=== PATIENT | female | born 1980 | race Caucasian/White ===

== ENCOUNTER 2023-02-08 12:32 | Outpatient (REF) | payer MEDICAID, SELFPAY ==
[2023-02-08 14:48] LABS: Free T4 (Free Thyroxine) 0.93 ng/dL (0.71-1.85); Thyroid Stimulating Hormone 0.06 uIU/mL (0.32-4.0)
[2023-02-09 21:14] LABS: Triiodothyronine T3 Free 3.3 pg/mL (2.3-4.2)
== END 2023-02-08 12:33 | disposition home or self-care (01) ==
LOC: HO.LAB 12:32
PROVIDERS: PCP Internal Medicine; Visit Provider Internal Medicine Endocrinology, Diabetes & Metabolism
DX: E05.20 Thyrotoxicosis with toxic multinodular goiter without thyrotoxic crisis or storm (principal); E03.9 Hypothyroidism, unspecified; E04.2 Nontoxic multinodular goiter; R13.10 Dysphagia, unspecified; Z79.899 Other long term (current) drug therapy
CPT/HCPCS: 36415; 84439; 84443; 84481; 99212

== ENCOUNTER 2023-03-04 13:49 | Outpatient (REF) | payer MEDICAID, SELFPAY ==
--- NOTE | ~2023-03-04 | US_ITS ---
EXAMINATION: US THYROID CLINICAL INFORMATION: Thyrotoxicosis with toxic multinodular goiter without thyrotoxic crisis or storm. COMPARISON: None available. TECHNIQUE: Linear transducer grayscale and color Doppler examination with attention to the region of the thyroid. FINDINGS: SIZE: Measurements of the thyroid lobes and nodules are given in sagittal, anteroposterior and transverse dimensions respectively. Right Thyroid Lobe: 5.8 x 1.8 x 2.4 cm, volume 13.1 mL. Parenchyma: The gland echotexture is heterogeneous. Thyroid vascularity is increased. Left Thyroid Lobe: 5.8 x 2.1 x 2.7 cm, volume 17.2 mL. Parenchyma: The gland echotexture is heterogeneous. Thyroid vascularity is increased. Isthmus: 0.7 cm in maximum AP dimension. Estimated total number of nodules greater than or equal to 1 cm: 0. 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 Location: Right inferior. Size: 0.7 x 0.5 x 0.5 cm, volume 0.1 mL. Nodule characteristics: Composition: Mixed cystic and solid (1). Echogenicity: Hypoechoic (2). Shape: Not taller than wide (0). Margins: Smooth (0). Echogenic Foci: Comet-tail artifacts (0). ACR TI-RADS total points: 3 ACR TI-RADS category: 3 2. Location: Left mid. Size: 0.9 x 0.5 x 0.6 cm, volume 0.2 mL. Nodule characteristics: Composition: Solid/almost completely solid (2). Echogenicity: Isoechoic (1). Shape: Not taller than wide (0). Margins: Ill-defined (0). Echogenic Foci: None (0). ACR TI-RADS total points: 3 ACR TI-RADS category: 3 3. Location: Left mid. Size: 1.2 x 0.7 x 1.0 cm, volume 0.4 mL. Nodule characteristics: Composition: Mixed cystic and solid (1). Echogenicity: Isoechoic (1). Shape: Not taller than wide (0). Margins: Ill-defined (0). Echogenic Foci: None (0). ACR TI-RADS total points: 2 ACR TI-RADS category: 2 NODES: No lymphadenopathy is seen in the tissue surrounding the thyroid gland. US/US thyroid IMPRESSION: Subcentimeter TR 3 thyroid nodules and a 1.2 cm TR 2 thyroid nodule which do not meet criteria for follow-up. Heterogeneous hypervascular thyroid which can be seen in the setting of thyroiditis. ACR TI-RADS RECOMMENDATION REFERENCE: Ultrasound-guided fine-needle aspiration, followup ultrasound, no further follow up. * TR1 (0 point) and TR2 (2 points): No FNA or follow up. * TR3 (3 points): FNA if more than or equal to 2.5 cm in maximum dimension, followup ultrasound in 1, 3 and 5 years if 1.5 to 2.4 cm in maximum dimension. * TR4 (4-6 points): FNA if more than or equal to 1.5 cm in maximum dimension, followup ultrasound in 1, 2, 3 and 5 years if 1 to 1.4 cm in maximum dimension. * TR5 (more than or equal to 7 points): FNA if more than or equal to 1 cm in maximum dimension, followup ultrasound every year for 5 years if 0.5 to 0.9 cm in maximum dimension. * TR3, TR4 or TR5 nodules that are below the size threshold for followup receive no follow up.
== END 2023-03-04 13:50 | disposition home or self-care (01) ==
LOC: HO.US 13:49
PROVIDERS: PCP Internal Medicine; Visit Provider Internal Medicine Endocrinology, Diabetes & Metabolism
DX: E05.20 Thyrotoxicosis with toxic multinodular goiter without thyrotoxic crisis or storm (principal)
CPT/HCPCS: 76536

== ENCOUNTER 2023-06-07 12:33 | Outpatient (REF) | payer MEDICAID, SELFPAY ==
[2023-06-07 15:10] LABS: Free T4 (Free Thyroxine) 0.96 ng/dL (0.71-1.85); Thyroid Stimulating Hormone 0.08 uIU/mL (0.32-4.0)
[2023-06-09 07:53] LABS: Triiodothyronine T3 Free 3.1 pg/mL (2.3-4.2)
== END 2023-06-07 12:34 | disposition home or self-care (01) ==
LOC: HO.LAB 12:33
PROVIDERS: Visit Provider Internal Medicine Endocrinology, Diabetes & Metabolism
DX: E05.20 Thyrotoxicosis with toxic multinodular goiter without thyrotoxic crisis or storm (principal); Z79.899 Other long term (current) drug therapy
CPT/HCPCS: 36415; 84439; 84443; 84481; 99212

== ENCOUNTER 2023-06-07 12:33 | Outpatient (AMB) | payer MEDICAID, SELFPAY ==
--- NOTE | 2023-06-07 12:34 | MHC.OFFVIS ---
Intake Vital Signs 06/07/23 12:37 Height 5 ft 2 in Weight 197 lb BMI 36.0 BP 92/66 Blood Pressure Location Lt brachial Position Sitting Pulse 76 Intake Visit Reasons: f/u MNG Intake Note: Patient present for MNG follow up visit. 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 Maya at [facility]. According to her notes nodules were subcentimeter. Patient is currently off methimazole 2.5 mg q.d. Feels well c/o dysphagia and hoarseness of voice. Denies sensation of swelling in the neck or difficulty breathing while lying flat. Denies any tenderness in the neck. Denies any palpitations, tremors, + weight loss,-frequent bowel movements. Denies any ocular complaints,+ blurred or _double vision. Denies hair loss, dry skin, heat or cold intolerance, weight gain, confusion. Denies any history of head or neck irradiation. Denies any family history of thyroid cancer. Not Had biopsy of nodules in the past. Thyroid US: Labs: [facility] Medical History (Updated 02/08/23 @ 12:51 by Ronal Scott MD) Toxic multinodul goiter Surgical History Hx of appendectomy Hx of rhinoplasty Family History Mother Heart problem High cholesterol Arthritis History of hypertension Father Arthritis High cholesterol History of hypertension Social History Household Members: Family Household Members Other:: parents, brother Alcohol intake: current Alcohol intake frequency: does not drink Tobacco use type: Cigarette e-Cigarette/Vaping Use: Currently Using Physical Exam Vital Signs: Last Vital Signs Pulse 76 06/07/23 12:37 BP 92/66 06/07/23 12:37 BMI result Body Mass Index 36.0 HEENT reveals absence of lid lag , stare or proptosis or eyebrow loss. Thyroid gland is large in size and measure 45 gms . No nodules or tenderness palpated. There is no cervical adenopathy palpated. Lungs CTA. Heart S1, S2 Reg R/R -M/R/G. Abdominal exam benign. Skin exam reveals absence of dryness or thyroid dermopathy or vitiligo. Nail exam reveals absence of thyroid acropachy or oncholysis. Neurologic exam reveals 2+ reflexes . Muscle Strength is 5/5 proximally. There are no tremors in upper extremities. 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 She appears to be clinically euthyroid. The plan is to send the patient for thyroidectomy due to obstructive symptoms and previous mild degree of TSH suppression. Will also recheck TSH, free T4, free T3. 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
[2023-06-07 12:37] VITALS: BP 92/66; PULSE 76; BMI 36.0
== END 2023-06-07 12:59 | disposition home or self-care (01) ==
PROVIDERS: PCP Internal Medicine; Referring Provider Internal Medicine; Visit Provider Internal Medicine Endocrinology, Diabetes & Metabolism
DX: E05.20 Thyrotoxicosis with toxic multinodular goiter without thyrotoxic crisis or storm (principal)
CPT/HCPCS: 99213

== ENCOUNTER 2024-10-20 13:13 | Outpatient (AMB) | payer MEDICAID, SELFPAY ==
[2024-10-20 13:14] VITALS: BP 100/68; PULSE 52; BMI 23.7
--- NOTE | 2024-10-20 13:14 | MHC.OFFVIS ---
Vital Signs 10/20/24 13:14 Height 5 ft 2 in Weight 129 lb 10.109 oz BMI 23.7 BP 100/68 Blood Pressure Location Rt brachial Position Sitting Pulse 52 Pulse Source Pulse Oximeter Intake Visit Reasons: f/u MNG/CONF Intake Note: New patient present today for MGN office visit. 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 Vince Rosario at [facility] for toxic MNG . Also noted to be aromatase inhibitor therapy for breast cancer. HPI She has a history of hyperthyroidism since 2008 likely due to diffuse toxic goiter, apparently diagnosed when she lived in [place], no details available. Per patient she used to be on antithyroid medication for years (? PTU), then [place] and was started on methimazole but developed some side effects and stopped in September 2022. Labs from February 2023 showed suppressed TSH 0.06 with normal free T4 of 0.93. Subsequently labs in June 2023 again showed suppressed TSH of 0.08, free T4 0.96, free T3 3.1 (off methimazole). Thyroid ultrasound 03/04/2023 showed diffusely enlarged hypervascular thyroid gland containing multiple around 1 cm or less nodules including dominant 1.2 cm TR 2 left midpole nodule, not meeting criteria for biopsy. She was having some degree of compressive symptoms with dysphagia to solids, neck pressure, occasional choking. She was subsequently referred to Endocrine surgery and saw Dr. Vince Rosario at [facility] on 09/25/2023 for evaluation of toxic multinodular goiter for total thyroidectomy. She was also in in the interim diagnosed with breast cancer status post left breast lumpectomy August 2023 status post chemotherapy completed November 2023 followed by radiation therapy finished January 2024. Sees Dr. Macrina Best at [facility] and Dr Addison Bradford for her oncology care. Hence total thyroidectomy was subsequently delayed. Status post total thyroidectomy 09/02/[address] Vince Rosario at [facility] in [facility], along with right inferior parathyroidectomy with reimplantation of the parathyroid in the left SCM. 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 Currenlty taking levothyroxine 88 mcg daily , good adherence , takes between 9 AM to 10 AM and waits an hour between eating or drinking coffee. Fatigue improved since surgery. Palpitations improved. Bowel movements regular. Lost 70 lbs after gastric sleeve surgery in [place] in March 2023. Continues to lose weight. Hasnt had period for one year since chemo, she is on depot progesterone every 3 months Patient denies any difficulty swallowing, pain on swallowing or voice changes or difficulty breathing. Denies having ever used lithium, amiodarone or biotin supplements. Patient denies any family history of thyroid cancer or thyroid disease. Bone health on aromatase inhibitor For history of breast cancer, starting letrozole February 2024 with plan for 5 years Denies any fracture history, denies history of bone density evaluation Vitamin D 2000 units daily, taking calcium 2 pills daily not sure about the dose Milk: daily one bottle every day (a protein shake), a cup of milk wiht oats daily She vapes , has prior history of tobacco use Denies any alcohol use Has had cortisone shots in her hip a few years ago, 2 injections, denies any long-term glucocorticoid therapy Has had chemotherapy for left breast cancer in 01/2024 No history of antiseizure medications No PPI use. Does have history of hyperthyroidism due to toxic multinodular goiter as described above status post total thyroidectomy August 2024 now with postsurgical hypothyroid Physical exam General: sitting comfortably in no acute distress HEENT: normocephalic/atraumatic,moist oral mucosa Neck: supple, symmetrical, well healing surgical scar , no dorsocervical or supraclavicular fat pads Cardiac: normal heart sounds Pulm: normal breath sounds B/L, no added breath sounds Abd: not distended, no tenderness Extremities: no edema, no signs of myxedema Laboratory Tests 02/08/23 06/07/23 13:33 13:15 TSH 0.06 L 0.08 L Free T4 0.93 0.96 Free T3 3.3 3.1 US THYROID 03/04/23 CLINICAL INFORMATION: Thyrotoxicosis with toxic multinodular goiter without thyrotoxic crisis or storm. COMPARISON: None available. TECHNIQUE: Linear transducer grayscale and color Doppler examination with attention to the region of the thyroid. FINDINGS: SIZE: Measurements of the thyroid lobes and nodules are given in sagittal, anteroposterior and transverse dimensions respectively. Right Thyroid Lobe: 5.8 x 1.8 x 2.4 cm, volume 13.1 mL. Parenchyma: The gland echotexture is heterogeneous. Thyroid vascularity is increased. Left Thyroid Lobe: 5.8 x 2.1 x 2.7 cm, volume 17.2 mL. Parenchyma: The gland echotexture is heterogeneous. Thyroid vascularity is increased. Isthmus: 0.7 cm in maximum AP dimension. Estimated total number of nodules greater than or equal to 1 cm: 0. 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 Location: Right inferior. Size: 0.7 x 0.5 x 0.5 cm, volume 0.1 mL. Nodule characteristics: Composition: Mixed cystic and solid (1). Echogenicity: Hypoechoic (2). Shape: Not taller than wide (0). Margins: Smooth (0). Echogenic Foci: Comet-tail artifacts (0). ACR TI-RADS total points: 3 ACR TI-RADS category: 3 2. Location: Left mid. Size: 0.9 x 0.5 x 0.6 cm, volume 0.2 mL. Nodule characteristics: Composition: Solid/almost completely solid (2). Echogenicity: Isoechoic (1). Shape: Not taller than wide (0). Margins: Ill-defined (0). Echogenic Foci: None (0). ACR TI-RADS total points: 3 ACR TI-RADS category: 3 3. Location: Left mid. Size: 1.2 x 0.7 x 1.0 cm, volume 0.4 mL. Nodule characteristics: Composition: Mixed cystic and solid (1). Echogenicity: Isoechoic (1). Shape: Not taller than wide (0). Margins: Ill-defined (0). Echogenic Foci: None (0). ACR TI-RADS total points: 2 ACR TI-RADS category: 2 NODES: No lymphadenopathy is seen in the tissue surrounding the thyroid gland. US/US thyroid IMPRESSION: Subcentimeter TR 3 thyroid nodules and a 1.2 cm TR 2 thyroid nodule which do not meet criteria for follow-up. Heterogeneous hypervascular thyroid which can be seen in the setting of thyroiditis. [facility] Medical History (Updated 10/20/24 @ 13:56 by Teresa Cristina MD) Hypothyroidism Vitamin D deficiency Aromatase inhibitor use Toxic multinodul goiter Surgical History (Updated 10/20/24 @ 13:20 by JENNIFER Reno) History of thyroid surgery Hx of rhinoplasty Hx of appendectomy Family History Mother Heart problem High cholesterol Arthritis History of hypertension Father Arthritis High cholesterol History of hypertension Social History Household Members: Family Household Members Other:: parents, brother Alcohol intake: current Alcohol intake frequency: does not drink Tobacco use type: Cigarette e-Cigarette/Vaping Use: Currently Using Assessment & Plan Assessment & Plan (1) Toxic multinodul goiter: Code(s): E05.20 - Thyrotoxicosis with toxic multinodular goiter without thyrotoxic crisis or storm Category: Medical Plan: 44-year-old female with past medical history significant for toxic multinodular goiter status post total thyroidectomy 09/02/[address] Vince Rosario at [facility], now coming in for postsurgical hypothyroidism. Currently on levothyroxine 88 mcg daily. No recent TFTs done. We will order TSH and free T4. Plan: -ordered TSH, free T4 -continue levothyroxine 88 mcg daily (2) Hypothyroidism: Code(s): E03.9 - Hypothyroidism, unspecified Category: Medical Qualifiers: Hypothyroidism type: postoperative Qualified Code(s): E89.0 - Postprocedural hypothyroidism Plan: See above (3) Aromatase inhibitor use: Code(s): Z79.811 - half-way (current) use of aromatase inhibitors Category: Medical Plan: 44-year-old female with a history significant for left breast cancer status post lumpectomy August 2023 status post chemotherapy completed November 2023 followed by radiation therapy finished January 2024. Sees Dr. Macrina Best at [facility] and Dr Addison Bradford for her oncology care. Was started on letrozole 2.5 mg daily in February 2024, with plan for 5 years of therapy. No history of fractures, has not had a bone density scan. I discussed with the patient that Aromatase inhibitors are associated with bone loss and fracture and women who will be initiating aromatase inhibitors require fracture risk assessment. High-risk factors are history of cigarette smoking. She wakes now though and has quit cigarette smoking. Otherwise no other risk factors. We will obtain a bone density scan. We will also assess bone resorption markers as well as vitamin-D levels. She is taking adequate amounts of vitamin-D 2000 units daily, also on a good amount of calcium intake daily. Plan: -ordered bone density scan -ordered calcium, albumin, PTH, BMP, liver panel, protein, CBC, CTX and bone alkaline phosphatase levels -continue vitamin-D 2000 units daily -maintain 1997-5342 mg of calcium intake through diet/supplement daily -weight-bearing exercise (4) Vitamin D deficiency: Code(s): E55.9 - Vitamin D deficiency, unspecified Category: Medical Plan: See above Plan I spent 30 minutes in reviewing the record, seeing the patient and documenting in the medical record. 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 thyrotoxic crisis or storm, E55.9 - Vitamin D deficiency, unspecified, Z79.811 - ocean transportation intermediary (current) use of aromatase inhibitors XR DEXA axial skeleton Today Z79.811 - half-way (current) use of aromatase inhibitors Liver Panel Today Z79.811 - ocean transportation intermediary (current) use of aromatase inhibitors Total Protein Today Z79.811 - ocean transportation intermediary (current) use of aromatase inhibitors Thyroid Stimulating Hormone Today E05.20 - Thyrotoxicosis with toxic multinodular goiter without thyrotoxic crisis or storm, E55.9 - Vitamin D deficiency, unspecified, Z79.811 - ocean transportation intermediary (current) use of aromatase inhibitors Free T4 (Free Thyroxine) Today E05.20 - Thyrotoxicosis with toxic multinodular goiter without thyrotoxic crisis or storm, E55.9 - Vitamin D deficiency, unspecified, Z79.811 - ocean transportation intermediary (current) use of aromatase inhibitors Calcium Today E05.20 - Thyrotoxicosis with toxic multinodular goiter without thyrotoxic crisis or storm, E55.9 - Vitamin D deficiency, unspecified, Z79.811 - ocean transportation intermediary (current) use of aromatase inhibitors Alkaline Phosphatase Bone Today E05.20 - Thyrotoxicosis with toxic multinodular goiter without thyrotoxic crisis or storm, E55.9 - Vitamin D deficiency, unspecified, Z79.811 - ocean transportation intermediary (current) use of aromatase inhibitors Phosphorus Today E05.20 - Thyrotoxicosis with toxic multinodular goiter without thyrotoxic crisis or storm, E55.9 - Vitamin D deficiency, unspecified, Z79.811 - ocean transportation intermediary (current) use of aromatase inhibitors Vitamin D 25-OH Total Today E05.20 - Thyrotoxicosis with toxic multinodular goiter without thyrotoxic crisis or storm, E55.9 - Vitamin D deficiency, unspecified, Z79.811 - ocean transportation intermediary (current) use of aromatase inhibitors Magnesium Today E05.20 - Thyrotoxicosis with toxic multinodular goiter without thyrotoxic crisis or storm, E55.9 - Vitamin D deficiency, unspecified, Z79.811 - ocean transportation intermediary (current) use of aromatase inhibitors Complete Blood Count no Diff Today Z79.811 - ocean transportation intermediary (current) use of aromatase inhibitors Patient Instructions: 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
== END 2024-10-20 13:52 | disposition home or self-care (01) ==
LOC: HO.ENCR 13:13
PROVIDERS: PCP Internal Medicine; Visit Provider Student in an Organized Health Care Education/Training Program
DX: E05.20 Thyrotoxicosis with toxic multinodular goiter without thyrotoxic crisis or storm (principal); E89.0 Postprocedural hypothyroidism; Z79.811 Long term (current) use of aromatase inhibitors; E55.9 Vitamin D deficiency, unspecified
CPT/HCPCS: 99214

== ENCOUNTER → 2024-10-20 13:13 | Outpatient (BNVA) | payer MEDICAID, SELFPAY | PROVIDERS: PCP Internal Medicine; Visit Provider Student in an Organized Health Care Education/Training Program | DX: E05.20 Thyrotoxicosis with toxic multinodular goiter without thyrotoxic crisis or storm (principal); E89.0 Postprocedural hypothyroidism; E55.9 Vitamin D deficiency, unspecified; C50.912 Malignant neoplasm of unspecified site of left female breast; Z79.811 Long term (current) use of aromatase inhibitors | CPT/HCPCS: 99212 ==

== ENCOUNTER 2024-10-21 10:51 | Outpatient (REF) | payer MEDICAID, SELFPAY ==
[2024-10-21 12:08] LABS: Hematocrit 37.9 % (37.0-47.0); Hemoglobin 12.3 g/dl (12.0-16.0); Mean Corpuscular HGB Conc 32.5 g/dl (31.0-35.0); Mean Corpuscular Hemoglobin 31.1 pg (27.0-33.0); Mean Corpuscular Volume 95.7 fL (80.0-98.0); Mean Platelet Volume 9.9 fL (9.4-12.3); Platelet Count 237 X10*3/uL (160-400); Red Blood Count 3.96 X10*6/uL (4.20-5.50); Red Cell Distribution Width 12.5 % (11.0-16.0)
[2024-10-21 12:54] LABS: Alanine Aminotransferase 21 U/L (0-31); Albumin Level 4.1 g/dL (3.5-5.0); Alkaline Phosphatase 67 U/L (39-117); Anion Gap 8 (12-20); Aspartate Amino Transferase 22 U/L (5-31); Bilirubin Direct 0.2 mg/dL (0.0-0.5); Bilirubin Total 0.6 mg/dL (0.0-1.0); Blood Urea Nitrogen 16 mg/dL (9-16); Calcium 9.1 mg/dL (8.4-10.2); Carbon Dioxide 32 mmol/L (22-29); Chloride 106 mmol/L (96-108); Estimated Glomerular Filt Rate > 60; Glucose Random 89 mg/dL (60-115); Magnesium 2.2 mg/dL (1.6-2.6); Phosphorus 3.1 mg/dL (2.7-4.5); Potassium 3.8 mmol/L (3.3-5.1); Sodium 142 mmol/L (135-145)
[2024-10-21 13:11] LABS: Thyroid Stimulating Hormone 0.08 uIU/mL (0.32-4.0); Vitamin D 25-OH Total 50.8 ng/mL (>30)
== END 2024-10-21 10:52 | disposition home or self-care (01) ==
LOC: HO.LAB 10:51
PROVIDERS: Student in an Organized Health Care Education/Training Program; PCP Internal Medicine; Visit Provider Student in an Organized Health Care Education/Training Program
DX: E05.20 Thyrotoxicosis with toxic multinodular goiter without thyrotoxic crisis or storm (principal); Z79.811 Long term (current) use of aromatase inhibitors; E55.9 Vitamin D deficiency, unspecified
CPT/HCPCS: 36415; 80048; 80076; 82306; 83735; 84100; 84439; 84443; 85027

== ENCOUNTER 2024-10-30 08:28 | Outpatient (REF) | payer MEDICAID, SELFPAY ==
[2024-10-30 09:22] LABS: Albumin Level 4.2 g/dL (3.5-5.0); Calcium 9.6 mg/dL (8.4-10.2)
[2024-11-02 20:12] LABS: Collagen Type I C-Telopeptide 1019 pg/mL (50-465)
[2024-11-03 12:38] LABS: Alkaline Phosphatase Bone 12.9 mcg/L (5.0-18.8)
== END 2024-10-30 08:29 | disposition home or self-care (01) ==
LOC: HO.LAB 08:28
PROVIDERS: PCP Internal Medicine; Visit Provider Student in an Organized Health Care Education/Training Program
DX: E05.20 Thyrotoxicosis with toxic multinodular goiter without thyrotoxic crisis or storm (principal); E55.9 Vitamin D deficiency, unspecified; Z79.811 Long term (current) use of aromatase inhibitors
CPT/HCPCS: 36415; 82040; 82310; 82523; 84075; 84155

== ENCOUNTER 2024-11-10 14:14 | Outpatient (REF) | payer MEDICAID, SELFPAY ==
--- NOTE | ~2024-11-10 | MM_ITS ---
EXAMINATION: Dual-Energy X-ray Absorptiometry - Bone Density Study HISTORY: Estrogen deficiency TECHNIQUE: Audemat Dual energy absorptiometry (DEXA) of the lumbar spine, total left hip, and femoral neck was performed. COMPARISON: There are no prior studies for comparison. FINDINGS: The bone mineral density of the lumbar spine is 0.986 with a T-score of -1.6, and a Z-score of -1.4. The bone mineral density of the left total hip is 0.921 with a T-score of -0.7, and a Z-score of 0.2. The bone mineral density of the left femoral neck is 0.880 with a T-score of -1.1, and a Z-score of 0.4. FRACTURE RISK: The FRAX index suggests a risk of major osteoporotic fracture of 2.8%, and of hip fracture 0.4%. MM/XR DEXA axial skeleton IMPRESSION: Based on bone mineral density, and according to World Health Organization (WHO) criteria, the diagnosis is consistent with osteopenia. All bone density values are in grams per centimeter squared. At this facility, the least significant change in BMD with 95% confidence is 0.022 at the lumbar spine, 0.027 at the hip, and 0.023 at the distal 1/3 radius. Electronically signed by: Ronal Bryant MD 11/11/2024 09:52 AM [facility] [place]
== END 2024-11-10 14:15 | disposition home or self-care (01) ==
LOC: HO.MAMMO 14:14
PROVIDERS: PCP Internal Medicine; Visit Provider Student in an Organized Health Care Education/Training Program
DX: Z79.811 Long term (current) use of aromatase inhibitors (principal)
CPT/HCPCS: 77080

== ENCOUNTER → 2024-11-10 14:30 | Outpatient (BNV) | payer MEDICAID, SELFPAY | PROVIDERS: PCP Internal Medicine; Visit Provider Radiology Diagnostic Radiology | DX: E28.39 Other primary ovarian failure (principal); Z79.811 Long term (current) use of aromatase inhibitors | CPT/HCPCS: 77086 ==

== ENCOUNTER 2024-12-01 12:50 | Outpatient (AMB) | payer MEDICAID, SELFPAY ==
--- NOTE | 2024-12-01 12:53 | MHC.OFFVIS ---
Vital Signs 12/01/24 12:55 Height 5 ft 2 in Weight 130 lb 4.691 oz BMI 23.8 BP 117/82 Blood Pressure Location Rt brachial Position Sitting Pulse 83 Pulse Source Monitor Intake Visit Reasons: f/u MNG Intake Note: Patient presents today for a follow-up on Multinodular Goiter: [employer] Required: No Accompanied by: Self / Same As Patient Allergies No Known Allergies Allergy (Verified 12/01/24 12:54) HPI Comments Details: 44 YO F coming in today for follow up of postsurgical hypothyroidism after total thyroidectomy on 09/02/[address] Vince Rosario at [facility] for toxic MNG . And osteopenia with aromatase inhibitor therapy for breast cancer. History of toxic multinodular goiter Postsurgical hypothyroidism She has a history of hyperthyroidism since 2008 likely due to diffuse toxic goiter, apparently diagnosed when she lived in [place], no details available. Per patient she used to be on antithyroid medication for years (? PTU), [place] and was started on methimazole but developed some side effects and stopped in September 2022. Labs from February 2023 showed suppressed TSH 0.06 with normal free T4 of 0.93. Subsequently labs in June 2023 again showed suppressed TSH of 0.08, free T4 0.96, free T3 3.1 (off methimazole). Thyroid ultrasound 03/04/2023 showed diffusely enlarged hypervascular thyroid gland containing multiple around 1 cm or less nodules including dominant 1.2 cm TR 2 left midpole nodule, not meeting criteria for biopsy. She was having some degree of compressive symptoms with dysphagia to solids, neck pressure, occasional choking. She was subsequently referred to Endocrine surgery and saw Dr. Vince Rosario at [facility] on 09/25/2023 for evaluation of toxic multinodular goiter for total thyroidectomy. She was also in in the interim diagnosed with breast cancer status post left breast lumpectomy August 2023 status post chemotherapy completed November 2023 followed by radiation therapy finished January 2024. Sees Dr. Macrina Best at [facility] and Dr Addison Bradford for her oncology care. Hence total thyroidectomy was subsequently delayed. Status post total thyroidectomy 09/02/[address] Vince Rosario at [facility] in [facility], along with right inferior parathyroidectomy with reimplantation of the parathyroid in the left SCM. 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 Chapisenlty taking levothyroxine 88 mcg daily , good adherence , takes between 9 AM to 10 AM and waits an hour between eating or drinking coffee. Fatigue improved since surgery. Palpitations improved. Bowel movements regular. Lost 70 lbs after gastric sleeve surgery in [place] in March 2023. Continues to lose weight. Hasnt had period for one year since chemo, she is on depot progesterone every 3 months Patient denies any difficulty swallowing, pain on swallowing or voice changes or difficulty breathing. Denies having ever used lithium, amiodarone or biotin supplements. Patient denies any family history of thyroid cancer or thyroid disease. Interval history Labs from 10/21/2024 showed TSH still low at 0.08, free T4 1.30, we had asked her to repeat another set of labs in 6 weeks to see if her TSH is lagging behind and improves without any changes to levothyroxine. However no set of repeat labs done. Reports fatigue , tirendess , plapitations , and gained weight. Osteopenia Bone health on aromatase inhibitor For history of breast cancer, starting letrozole February 2024 with plan for 5 years Denies any fracture history, denies history of bone density evaluation Vitamin D 2000 units daily, taking calcium 2 pills daily not sure about the dose Milk: daily one bottle every day (a protein shake), a cup of milk wiht oats daily She vapes , has prior history of tobacco use Denies any alcohol use Has had cortisone shots in her hip a few years ago, 2 injections, denies any long-term glucocorticoid therapy Has had chemotherapy for left breast cancer in 01/2024 No history of antiseizure medications No PPI use. Does have history of hyperthyroidism due to toxic multinodular goiter as described above status post total thyroidectomy August 2024 now with postsurgical hypothyroid Mother has history of hip fracture On progesterone shot every 3 months Interval history DEXA scan 11/10/2024 showed T-score of-1.6 and Z-score of -1.4 of the lumbar spine, T-score of-0.7 at the left total hip and T-score of-1.1 at the left femoral neck. Lumbar spine and femoral neck consistent with osteopenia. While patient is young so we have to go by Z scores, she is meeting criteria for treatment based on the fact that her T-score is less than -1.5, she has a history of smoking cigarettes, and parent has a history of fragility fracture. 10/30/2024 CTX elevated at 1019. Normal calcium, vitamin-D of 50.8, normal kidney function, Physical exam General: sitting comfortably in no acute distress HEENT: normocephalic/atraumatic,moist oral mucosa Neck: supple, symmetrical, well healing surgical scar , no dorsocervical or supraclavicular fat pads Cardiac: normal heart sounds Pulm: normal breath sounds B/L, no added breath sounds Abd: not distended, no tenderness Extremities: no edema, no signs of myxedema Laboratory Tests 02/08/23 06/07/23 13:33 13:15 TSH 0.06 L 0.08 L Free T4 0.93 0.96 Free T3 3.3 3.1 Laboratory Tests 10/21/24 10/30/24 11:27 08:38 Sodium 142 Potassium 3.8 Creatinine 0.72 Estimated GFR > 60 Calcium 9.1 9.6 Alk Phos Bone Specific 12.9 Albumin 4.1 4.2 Collgn I C-Telopeptide 1019 H 25-OH Vitamin D Total 50.8 TSH 0.08 L Free T4 1.30 EXAMINATION: Dual-Energy X-ray Absorptiometry - Bone Density Study 11/10/24 HISTORY: Estrogen deficiency TECHNIQUE: [employer] Dual energy absorptiometry (DEXA) of the lumbar spine, total left hip, and femoral neck was performed. COMPARISON: There are no prior studies for comparison. FINDINGS: The bone mineral density of the lumbar spine is 0.986 with a T-score of -1.6, and a Z-score of -1.4. The bone mineral density of the left total hip is 0.921 with a T-score of -0.7, and a Z-score of 0.2. The bone mineral density of the left femoral neck is 0.880 with a T-score of -1.1, and a Z-score of 0.4. FRACTURE RISK: The FRAX index suggests a risk of major osteoporotic fracture of 2.8%, and of hip fracture 0.4%. MM/XR DEXA axial skeleton IMPRESSION: Based on bone mineral density, and according to World Health Organization (WHO) criteria, the diagnosis is consistent with osteopenia. US THYROID 03/04/23 CLINICAL INFORMATION: Thyrotoxicosis with toxic multinodular goiter without thyrotoxic crisis or storm. COMPARISON: None available. TECHNIQUE: Linear transducer grayscale and color Doppler examination with attention to the region of the thyroid. FINDINGS: SIZE: Measurements of the thyroid lobes and nodules are given in sagittal, anteroposterior and transverse dimensions respectively. Right Thyroid Lobe: 5.8 x 1.8 x 2.4 cm, volume 13.1 mL. Parenchyma: The gland echotexture is heterogeneous. Thyroid vascularity is increased. Left Thyroid Lobe: 5.8 x 2.1 x 2.7 cm, volume 17.2 mL. Parenchyma: The gland echotexture is heterogeneous. Thyroid vascularity is increased. Isthmus: 0.7 cm in maximum AP dimension. Estimated total number of nodules greater than or equal to 1 cm: 0. Etcher Hand nodules are described as follows: 1. Location: Right inferior. Size: 0.7 x 0.5 x 0.5 cm, volume 0.1 mL. Nodule characteristics: Composition: Mixed cystic and solid (1). Echogenicity: Hypoechoic (2). Shape: Not taller than wide (0). Margins: Smooth (0). Echogenic Foci: Comet-tail artifacts (0). ACR TI-RADS total points: 3 ACR TI-RADS category: 3 2. Location: Left mid. Size: 0.9 x 0.5 x 0.6 cm, volume 0.2 mL. Nodule characteristics: Composition: Solid/almost completely solid (2). Echogenicity: Isoechoic (1). Shape: Not taller than wide (0). Margins: Ill-defined (0). Echogenic Foci: None (0). ACR TI-RADS total points: 3 ACR TI-RADS category: 3 3. Location: Left mid. Size: 1.2 x 0.7 x 1.0 cm, volume 0.4 mL. Nodule characteristics: Composition: Mixed cystic and solid (1). Echogenicity: Isoechoic (1). Shape: Not taller than wide (0). Margins: Ill-defined (0). Echogenic Foci: None (0). ACR TI-RADS total points: 2 ACR TI-RADS category: 2 NODES: No lymphadenopathy is seen in the tissue surrounding the thyroid gland. US/US thyroid IMPRESSION: Subcentimeter TR 3 thyroid nodules and a 1.2 cm TR 2 thyroid nodule which do not meet criteria for follow-up. Heterogeneous hypervascular thyroid which can be seen in the setting of thyroiditis. [facility] Medical History Hypothyroidism Vitamin D deficiency Aromatase inhibitor use Toxic multinodul goiter Surgical History History of thyroid surgery Hx of rhinoplasty Hx of appendectomy Family History Mother Heart problem High cholesterol Arthritis History of hypertension Father Arthritis High cholesterol History of hypertension Social History Household Members: Family Household Members Other:: parents, brother Alcohol intake: current Alcohol intake frequency: does not drink Tobacco use type: Cigarette e-Cigarette/Vaping Use: Currently Using Physical Exam Vital Signs: BMI result Body Mass Index 23.8 Assessment & Plan Assessment & Plan (1) Toxic multinodul goiter: Code(s): E05.20 - Thyrotoxicosis with toxic multinodular goiter without thyrotoxic crisis or storm Category: Medical Plan: 44-year-old female with past medical history significant for toxic multinodular goiter status post total thyroidectomy 09/02/[address] Vince Rosario at [facility], now coming in for postsurgical hypothyroidism. Currently on levothyroxine 88 mcg daily. No recent TFTs done. We will order TSH and free T4. Plan: -ordered TSH, free T4 -continue levothyroxine 88 mcg daily (2) Hypothyroidism: Code(s): E03.9 - Hypothyroidism, unspecified Category: Medical Qualifiers: Hypothyroidism type: postoperative Qualified Code(s): E89.0 - Postprocedural hypothyroidism Plan: See above (3) Aromatase inhibitor use: Code(s): Z79.811 - jail (current) use of aromatase inhibitors Category: Medical Plan: 44-year-old female with a history significant for left breast cancer status post lumpectomy August 2023 status post chemotherapy completed November 2023 followed by radiation therapy finished January 2024. Sees Dr. Macrina Best at [facility] and Dr Addison Bradford for her oncology care. Was started on letrozole 2.5 mg daily in February 2024, with plan for 5 years of therapy. No history of fractures, has not had a bone density scan. I discussed with the patient that Aromatase inhibitors are associated with bone loss and fracture and women who will be initiating aromatase inhibitors require fracture risk assessment. High-risk factors are history of cigarette smoking, history of hyperthyroidism,. She vapes now though and has quit cigarette smoking. Otherwise no other risk factors. She is taking adequate amounts of vitamin-D 2000 units daily, also on a good amount of calcium intake daily. DEXA scan 11/10/2024 showed T-score of-1.6 and Z-score of -1.4 of the lumbar spine, T-score of-0.7 at the left total hip and T-score of-1.1 at the left femoral neck. Lumbar spine and femoral neck consistent with osteopenia. While patient is young so we have to go by Z scores, she is meeting criteria for treatment based on the fact that her T-score is less than -1.5, she has a history of smoking cigarettes, and parent has a history of fragility fracture. 10/30/2024 CTX elevated at 1019. Normal calcium, vitamin-D of 50.8, normal kidney function, I discussed with the patient that we can consider treating her with a bisphosphonate based on those numbers and meeting criteria. We can consider either oral bisphosphonate given borderline osteopenia, versus Reclast. And then check bone resorption markers in 1 year from treatment to see whether she needs further treatment. Plan: -complete secondary workup by ordering serum immunofixation, protein electrophoresis and 24 hour urine calcium and creatinine -follow up in 2 weeks to discuss results consider oral versus IV bisphosphonate -continue vitamin-D 2000 units daily -maintain 4938-2394 mg of calcium intake through diet/supplement daily -weight-bearing exercise advised (4) Osteopenia: Code(s): M85.80 - Other specified disorders of bone density and structure, unspecified site Category: Medical Qualifiers: Osteopenia location: multiple sites Qualified Code(s): M85.89 - Other specified disorders of bone density and structure, multiple sites Plan: See above Plan I spent 30 minutes in reviewing the record, seeing the patient and documenting in the medical record. Orders: Orders Immunofixation Pnl, Serum Today E05.20 - Thyrotoxicosis with toxic multinodular goiter without thyrotoxic crisis or storm, E89.0 - Postprocedural hypothyroidism, M85.80 - Other specified disorders of bone density and structure, unspecified site, Z79.811 - intermission coordinator (current) use of aromatase inhibitors Albumin Level Today E05.20 - Thyrotoxicosis with toxic multinodular goiter without thyrotoxic crisis or storm, E89.0 - Postprocedural hypothyroidism, M85.80 - Other specified disorders of bone density and structure, unspecified site, Z79.811 - intermission coordinator (current) use of aromatase inhibitors Calcium Today E05.20 - Thyrotoxicosis with toxic multinodular goiter without thyrotoxic crisis or storm, E89.0 - Postprocedural hypothyroidism, M85.80 - Other specified disorders of bone density and structure, unspecified site, Z79.811 - intermission coordinator (current) use of aromatase inhibitors Creatinine, 24 Hr Group Today E05.20 - Thyrotoxicosis with toxic multinodular goiter without thyrotoxic crisis or storm, E89.0 - Postprocedural hypothyroidism, M85.80 - Other specified disorders of bone density and structure, unspecified site, Z79.811 - jail (current) use of aromatase inhibitors Protein Electrophoresis, Serum Today E05.20 - Thyrotoxicosis with toxic multinodular goiter without thyrotoxic crisis or storm, E89.0 - Postprocedural hypothyroidism, M85.80 - Other specified disorders of bone density and structure, unspecified site, Z79.811 - jail (current) use of aromatase inhibitors Creatinine Today E05.20 - Thyrotoxicosis with toxic multinodular goiter without thyrotoxic crisis or storm, E89.0 - Postprocedural hypothyroidism, M85.80 - Other specified disorders of bone density and structure, unspecified site, Z79.811 - jail (current) use of aromatase inhibitors Calcium, 24 Hr Ur Today E05.20 - Thyrotoxicosis with toxic multinodular goiter without thyrotoxic crisis or storm, E89.0 - Postprocedural hypothyroidism, M85.80 - Other specified disorders of bone density and structure, unspecified site, Z79.811 - jail (current) use of aromatase inhibitors Medications: New levothyroxine 88 mcg PO DAILY 30 tabs 3RF Patient Instructions: Bring your vitamin D calcium bottles next visit Do blood work today Do 24 hr urine test 24 hr urine collection instructions You have been asked to collect your urine for 24 hours to assess for calcium excretion. You must choose a 24 hour period of time when you will be home. The morning of the first day, DISCARD the FIRST morning void and then note the time. You will collect every single void from then on for 24 hours. For example, if you wake up at 6am and urinate, flush down that void. You will then collect every drop of urine all day and all night through 6am the following day. You will urinate one last time at 6am for the collection. The jug of urine must be kept in the refrigerator until you bring it to the lab. Coding Level of Care Code Est Pt Level 4 (33364) Diagnoses Toxic multinodul goiter E05.20 Postoperative hypothyroidism E89.0 Hypothyroidism type: postoperative Aromatase inhibitor use Z79.811 Osteopenia of multiple sites M85.89 Osteopenia location: multiple sites Time Spent (min) 30
[2024-12-01 12:55] VITALS: BP 117/82; PULSE 83; BMI 23.8
--- OUTSIDE RECORDS SUMMARY | 2024-12-01 13:39 | XMS_ITS | Encounter Summary ---
Author Organization [facility] [address] Address [address] [place] [address] Care Team Providers Care Rim Buster Name Role Phone Arleen Campbell Primary Care Provider [phone] Reason for Visit * Consultation (Routine) - Authorized Specialty Diagnoses / Procedures Referred By Enrico sweet Referred To Contact Occupational Therapy Diagnoses Malignant neoplasm of upper-outer quadrant of left breast in female, estrogen receptor positive (CMS/HCC) Left shoulder pain, unspecified chronicity Lamonte Bradford MD [address] [address] [facility] Occupational Therapy [address] [address] Referral ID Status Reason Start Date Expiration Date Visits Requested Visits Authorized [id number] Authorized Specialty Services Required 11/19/2024 11/19/2025 20 20 Encounter Details Date Type Department Care Team (Late st Contact Info) Description 11/26/2024 3:30 PM EST Treatment [facility] Occupational Therapy [address] [phone] Dede Wadsworth, OTR/L Left shoulder pain, unspecified chronicity (Primary Dx); Lymphatic edema Social History Tobacco Use Types Packs/Day Years Used Date Smoking Tobacco: Never Assessed Sex and Gender Information Value Date Recorded Sex Assigned at Not on file Gender Identity Not on file Sexual Orientation Not on file Job Start Date Occupation Industry Not on file Not on file Not on file documented as of this encounter Progress Notes * Dede Wadsworth, OTR/Charanjit - 11/26/2024 3:30 PM EST [facility] - Outpatient OCCUPATIONAL THERAPY DAILY TREATMENT NOTE Date: 11/26/2024 Visit Number: 3 Patient Name: Abhijit Willis : 1980 Age: 44 y.o. Gender: female Diagnosis: ICD-10-CM ICD-9-CM 1. Left shoulder pain, unspecified chronicity M25.512 719.41 2. Lymphatic edema I89.0 457.1 Date of Onset: 11/19/2024 Referring Provider: Lamonte Bradford MD Insurance: [place] / Product Type: *No Product type* / Language: Pt. speaks Albanian as preferred language, however declines bilingual interpreter Allergies: has No Known Allergies. Precautions: Left upper quadrant lymph edema precautions SUBJECTIVE Subjective Report: I have pain now and then, not all the time anymore Pain: Left upper quadrant / lateral chest/ Medial aspect humerus / axilla Pain at end ranges for shoulder rotations / scaption OBJECTIVE Patient presents with increased skin stretch ; left axilla/ upper arm / lateral chest Less palpable fibrosis in left breast ( medial /inferior part) TREATMENT INTERVENTION Procedures: Manual therapy according to Dr. Moreland method Increased lymph flow through termini/ profundus ( neck routine), B axilla's, L intercostals. L paraspinals and Left para sternum Stimulated lymph flow from Left UE / left breast into these drainage areas Used increased manual therapy to address fibrosis in inferior-medial part of left breast Used myofascial techniques to address tissue tightness left lateral chest /axilla/ proximal humerus G/H joint mobs for distraction, inferior and dorsal glides Scapula mobs. and posterior capsula stretch Provided soft tissue work to subscapular muscle area to allow for pain free shoulder ER Therapeutic exercises : IN prone with arm hanging of side of treatment table lift Left UE. from T and Y positions x 10 repswith shoulder in neutral and x 10 reps with shoulder in ER. With 2 lbs dumbbell x 10 reps. Rows In supine with 4 lbs dowel 2 x 10 reps ( chest press, reversed codman's clockwise and counter clockwise, serratus punch and flexion in scapular plane) Seated B scapula clocks With medium resistance theraband x10 reps ( SH ER/IR/EX) Pectoralis stretch in doorway Pain Reassessment: Patient tolerated session well without new onset of pain Assessment/Response To Treatment: Good I am already feeling better Patient Education: Education provided: Yes l HEP Education Provided To: Patient utilizing Explanation and Demonstration mode(s) of education Response to Education: Good PLAN POC Development/Review: No Change in the Plan of Care; Participants: Patient Equipment Recommended: none; Equipment Provided: none GOALS Patient reports decreased pain and demo increased ROM in her left shoulder Patient receptive to HEP Total Treatment Time: 60 minutes Documentation completed by Dede Wadsworth OTR/Charanjit documented in this encounter Plan of Treatment Upcoming Encounters Date Type Department Care Team (Late st Contact Info) Description 12/08/2024 3:00 PM EST Treatment [facility] Occupational Therapy [address] [phone] eDde Wadsworth OTR/L 12/10/2024 2:15 PM EST Office Visit [facility] Hematology Oncology [address] [place] [address] Jeremías Best MD [address] [place] [address] 12/10/2024 3:00 PM EST Treatment [facility] Occupational Therapy [address] [phone] Dede Wadsworth OTR/L 12/14/2024 3:30 PM EST Treatment [facility] Occupational Therapy [address] [place] [phone] Dede Wadsworth OTR/L 12/17/2024 3:00 PM EST Treatment [facility] Occupational Therapy [address] [phone] Dede Wadsworth, OTR/L 12/28/2024 3:30 PM EST Treatment [facility] Occupational Therapy [address] [place] [phone] Dede Wadsworth, OTR/L 01/07/2025 2:[address] [facility] [address] [facility] [address] [place] [address] 04/01/2025 1:00 PM EDT Office Visit [facility] [address] [place] [address] Lamonte Bradford MD [address] [facility] [address] [place], [place] [id number] documented as of this encounter Goals Goal Patient Goal Type Associated Problems Recent Progress Patient-Stated? Author OT STG's 4-6 visits, LTG 12 visits General No Ly Balderas, PT Note: Patient will be able to demo RTC strenghtening routing Patient will be able to demo pectoralis/ posterior capsula stretching routine Patient will report decreased pain ; Pain not affecting her sleep LTG's AROM left shoulder = AROM right shoulder Patient will report less pain, never more than 3 :10 Patient will be able to perform home management tasks ( cleaning /cooking) without pain Patient is independent In HEP ( RTC/ periscapula strengthening ) LTG in 8 weeks General Yes Ly Balderas, PT Note: Group Home Goals 1. Patient will be independent with home exercise program to maintain therapeutic gains. 2. Patient will be able to do IADLs like cooking/cleaning with min to no pain 3. Patient will be able to lift things with min to no pain or limitation To get rid of the pain in my arm General Yes Dede Wadsworth, OTR/L documented as of this encounter Visit Diagnoses Diagnosis Left shoulder pain, unspecified chronicity- Primary Lymphatic edema Other noninfectious lymphedema documented in this encounter Care Teams Rim Buster Relationship Specialty Start Date End Date Arleen Campbell FNP [address] [place] [phone] PCP - General Internal Medicine 08/11/21 documented as of this encounter
--- OUTSIDE RECORDS SUMMARY | 2024-12-01 13:39 | XMS_ITS | Encounter Summary ---
Author Organization [facility] Address [address] [place], [place] [id number] Care Team Providers Care Project Coordinator Rn Name Role Phone Valeria Au NP Primary Care Provider +1- [phone] Encounter Details Date Type Department Care Team Description 09/17/2023 Social Work [facility] Oncology Services [address] [place] [address] Todd Chang MSW Social History Tobacco Use Types Packs/Day Years Used Date Smoking Tobacco: Never Assessed Sex and Gender Information Value Date Recorded Sex Assigned at Female 09/14/2023 12:47 PM EST Gender Identity Not on file Sexual Orientation Not on file Job Start Date Occupation Industry Not on file Not on file Not on file documented as of this encounter Plan of Treatment Not on file documented as of this encounter Visit Diagnoses Not on filedocumented in this encounter Care Teams Project Coordinator Rn Relationship Specialty Start Date End Date Valeria Au NP [address] [place] [address] PCP - General Nurse Practitioner 07/31/23 documented as of this encounter
--- OUTSIDE RECORDS SUMMARY | 2024-12-01 13:39 | XMS_ITS | Encounter Summary ---
Author Organization [facility] Address [address] [place] [address] Care Team Providers Care Rail Filler Name Role Phone Arleen Campbell Primary Care Provider +1- [phone] Reason for Visit * Consultation (Routine) - Authorized Specialty Diagnoses / Procedures Referred By Enrico sweet Referred To Contact Occupational Therapy Diagnoses Malignant neoplasm of upper-outer quadrant of left breast in female, estrogen receptor positive (CMS/HCC) Left shoulder pain, unspecified chronicity Lamonte Bradford MD [address] [address] [facility] Occupational Therapy [address] [address] Referral ID Status Reason Start Date Expiration Date Visits Requested Visits Authorized [id number] Authorized Specialty Services Required 11/19/2024 11/19/2025 20 20 Encounter Details Date Type Department Care Team (Late st Contact Info) Description 11/23/2024 3:30 PM EST Treatment [facility] Occupational Therapy [address] [phone] Dede Wadsworth, OTR/L Left shoulder [...] Progress Notes * Dede Wadsworth, OTR/Charanjit - 11/23/2024 3:30 PM EST [facility] - Outpatient OCCUPATIONAL THERAPY DAILY TREATMENT NOTE Date: 11/23/2024 Visit Number: 1 Patient Name: Abhijit Willis : 1980 Age: 44 y.o. Gender: female Diagnosis: ICD-10-CM ICD-9-CM 1. Left shoulder pain, unspecified chronicity M25.512 719.41 2. Lymphatic edema I89.0 457.1 Date of Onset: 11/19/2024 Referring Provider: No ref. provider found Insurance: Pay[place] / Plan[place] / Product Type: *No Product type* / Language: Pt. 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) Left breast larger than her right / enlarged pores Tissue tightness;left lateral chest/ axilla and humerus Wearing appropriate bra TREATMENT INTERVENTION Procedures: Manual therapy according to [...] in scapular plane) Seated B scapula clocks Pain Reassessment: patient reports that It is a good pain when performing soft tissue work Assessment/Response To Treatment: Good I already feel better Patient Education: Education provided: Yes Education Provided To: Patient utilizing Explanation and Demonstration mode(s) of education Response to Education: Good PLAN POC Development/Review: No Change in the Plan of Care; Participants: Patient and patient's mother Equipment Recommended: none; Equipment Provided: none GOALS Patient is receptive to POC Total Treatment Time: 60 Documentation completed by Dede Wadsworth OTR/Charanjit documented in this encounter Plan of Treatment Upcoming Encounters Date Type Department Care Team (Late st Contact Info) Description 12/08/2024 3:00 PM EST Treatment [facility] Occupational Therapy [address] [place] [phone] Dede Wadsworth, OTR/L 12/10/2024 2:15 PM EST Office Visit [facility] Hematology Oncology [address] [place] [phone] Jeremías Best MD [address] [place] [phone] 12/10/2024 3:00 PM EST Treatment [facility] Occupational Therapy [address] [place] [phone] Dede Wadsworth, OTR/L 12/14/2024 3:30 PM EST Treatment [facility] Occupational Therapy [address] [place] [phone] Dede Wadsworth, OTR/L 12/17/2024 3:00 PM EST Treatment [facility] Occupational Therapy [address] [place] [phone] Dede Wadsworth, OTR/L 12/28/2024 3:30 PM EST Treatment [facility] Occupational Therapy [address] [place] [phone] Dede Wadsworth OTR/L 01/07/2025 2:30 PM EST Appointment [facility] Infusion Center [address]nd [place] [address] 04/01/2025 1:00 PM EDT Office Visit [facility] [address] [place] [phone] Lamonte Bradford MD [address] [place] [address] documented as of this encounter Goals Goal [...] weeks General Yes Ly Balderas, PT Note: Barker Operator Goals 1. Patient will be independent with home exercise program to maintain therapeutic gains. 2. Patient will be able to do IADLs like cooking/cleaning with min to no pain 3. Patient will be able to lift things with min to no pain or limitation To get rid of the pain in my arm General Yes Dede Wadsworth OTR/L documented as of this encounter Visit Diagnoses Diagnosis Left shoulder pain, unspecified chronicity- Primary Lymphatic edema Other noninfectious lymphedema documented in this encounter Care Teams Rail Filler Relationship Specialty Start Date End Date Arleen Campbell FNP [address] [place] [phone] PCP - General Internal Medicine 08/11/21 documented as of this encounter
--- OUTSIDE RECORDS SUMMARY | 2024-12-01 13:39 | XMS_ITS | Encounter Summary ---
Author Organization [facility] Address [address] [id number] Care Team Providers Care Flume Maker Name Role Phone Valeria Au NP Primary Care Provider +1- [phone] Encounter Details Date Type Department Care Team Description 10/08/2023 Social Work [facility] [address] [place] [address] Todd Chang MSW Social History Tobacco Use [...] on filedocumented in this encounter Care Teams Flume Maker Relationship Specialty Start Date End Date Valeria Au NP [address] [place] [address] PCP - General Nurse Practitioner 07/31/23 documented as of this encounter
--- OUTSIDE RECORDS SUMMARY | 2024-12-01 13:40 | XMS_ITS | Clinical Summary ---
Author Organization [facility] Address [address] [place] [address] Phone Care Team Providers Care Washroom Attendant Name Role Phone Arleen Campbell Primary Care Provider +1- [phone] Allergies No known active allergies Medications Medication Sig Dispensed Refills Start Date End Date Status diphenhydramine-pheny lephrine 12.5-5 mg/5 mL solution SWISH AND SPIT 10 ML EVERY 4 HOURS NEEDED 01/21/2024 Active acetaminophen (TYLENOL) 500 mg tablet Take by mouth. - Oral Active letrozole (FEMARA) 2.5 mg tablet Take 1 tablet (2.5 mg total) by mouth 1 (one) time each day 01/21/2024 Active ondansetron (ZOFRAN) 8 mg tablet Take 1 tablet by mouth 02/18/2024 Active IRON, FERROUS SULFATE, ORAL Take by mouth. Active meloxicam (MOBIC) 15 mg tablet Take 15 mg by mouth daily. Active cholecalciferol (VITAMIN D-3) 25 mcg (1,000 unit) capsule Take 2 Capsules by mouth. 08/27/2020 Active ferrous sulfate 325 mg (65 mg elemental iron) tablet TAKE 1 TABLET BY MOUTH EVERY OTHER DAY 02/03/2024 Active methIMAzole (TAPAZOLE) 5 mg tablet Take 5 mg by mouth daily. Active omeprazole (PriLOSEC) [address] capsule Take 20 mg by mouth daily. Active levothyroxine (SYNTHROID, LEVOTHROID) 88 mcg tablet Take 1 tablet (88 mcg total) by mouth 1 (one) time each day before breakfast. Active Active Problems Problem Noted Date Diagnosed Date Post-mastectomy pain syndrome 11/26/2024 Class 2 obesity due to exces s calories with body mass index (BMI) of 35.0 to 35.9 in adult 08/08/2024 Malignant neoplasm of upper- outer quadrant of left breast in female, estrogen receptor positive 08/08/2024 Encounters Date Type Department Care Team Description 11/30/2024 3:30 PM EST Treatment [facility] Occupational Therapy [address] [place] [phone] Gijzen, Dede P, OTR/L Left shoulder pain, unspecified chronicity (Primary Dx) 11/26/2024 3:30 PM EST Treatment [facility] Occupational [address] [phone] Gijzen, Dede P, OTR/L Left shoulder pain, unspecified chronicity (Primary Dx); Lymphatic edema 11/23/2024 3:30 PM EST Treatment [address] [phone] Perrijkalli Dede P, OTR/L Left shoulder pain, unspecified chronicity (Primary Dx); Lymphatic edema 11/19/2024 1:00 PM EST Evaluation [address] [phone] Perrijzen, Dede P, OTR/L Left shoulder pain, unspecified chronicity (Primary Dx); Lymphatic edema 11/19/2024 Plan of Care Documentation [facility] Occupational Therapy [address] [place] [phone] 10/20/2024 5:15 PM EST Treatment [facility] [address] [phone] David Donnelly PTA Left arm pain (Primary Dx) 10/19/2024 12:48 PM EST - 10/19/2024 11:59 PM EST Hospital Encounter [facility] [address] [place] [phone] Malignant neoplasm of upper-outer quadrant of left breast in female, estrogen receptor positive (CMS/HCC) Discharge Disposition: Home or Self Care 10/14/2024 4:30 PM EST Evaluation [facility] [address] [phone] Ly Balderas, PT Left arm pain (Primary Dx) 10/14/2024 Plan of Care Documentation [facility] [address] [phone] 10/09/2024 2:18 PM EST - 10/09/2024 11:59 PM EST Hospital Encounter [facility] Infusion Center [address] [facility] [address] [place] [address] Malignant neoplasm of upper-outer quadrant of left breast in female, estrogen receptor positive (CMS/HCC) (Primary Dx) Discharge Disposition: Home or Self Care 09/29/2024 2:40 PM EST Office Visit [facility] [address] [facility] [address] [place] [address] Lamonte Bradford MD Malignant neoplasm of upper-outer quadrant of left breast in female, estrogen receptor positive (CMS/HCC) (Primary Dx) 09/11/2024 Telephone [facility] Hematology Oncology [address] [place] [phone] Jeremías Best MD Appointment 09/10/2024 2:00 PM EST Office Visit [facility] Hematology Oncology [address] [place] [phone] Jeremías Best MD Malignant neoplasm of upper-outer quadrant of left breast in female, estrogen receptor positive (CMS/HCC) (Primary Dx) from Last 3 Months Immunizations Name Administration Dates Next Due Pfizer SARS-CoV-2 COVID-19, mRNA, LNP-S, preservative free 01/09/2021 Surgical History Surgery Date Site/Laterality Comments STEREOTACTIC CORE BIOPSY BREAST LUMPECTOMY Social History Tobacco Use Types Packs/Day Years Used Date Smoking Tobacco: Never Assessed Sex and Gender Information Value Date Recorded Sex Assigned at Not on file Gender Identity Not on file Sexual Orientation Not on file Job Start Date Occupation Industry Not on file Not on file Not on file Obstetrics History Last Filed Vital Signs Vital Sign Reading Time Taken Comments Blood Pressure 120/72 10/09/2024 2:26 PM EST Pulse 89 10/09/2024 2:26 PM EST Temperature 36.9 ??C (98.4 ??F) 10/09/2024 2:26 PM ES T Respiratory Rate - - Oxygen Saturation 100% 10/09/2024 2:26 PM EST Inhaled Oxygen Concentration - - Weight 57.2 kg (126 lb) 10/19/2024 1:10 PM EST Height 157.5 cm (5' 2 ) 10/19/2024 1:10 PM EST Body Mass Index 23.05 10/19/2024 1:10 PM EST Plan of Treatment Upcoming Encounters Date Type Department Care Team (Late st Contact Info) Description 12/08/2024 3:00 PM EST Treatment [facility] Occupational Therapy [address] [place] [phone] Dede Wadsworth P, OTR/L 12/10/2024 2:15 PM EST Office Visit [facility] Hematology Oncology [address] [place] [phone] Jeremías Best MD [address] [place] [phone] 12/10/2024 3:00 PM EST Treatment [facility] Occupational Therapy [address] [place] [phone] Dede Wadsworth P, OTR/L 12/14/2024 3:30 PM EST Treatment [facility] Occupational Therapy [address] [place] [phone] Dede Wadsworth P, OTR/L 12/17/2024 3:00 PM EST Treatment [facility] Occupational Therapy [address] [place] [phone] Dede Wadsworth P, OTR/L 12/28/2024 3:30 PM EST Treatment [facility] Occupational Therapy [address] [place] [phone] Dede Wadsworth, OTR/L 01/07/2025 2:30 PM EST Appointment [facility] Infusion Center [address] [facility] 2nd [place] [phone] 04/01/2025 1:00 PM EDT Office Visit [facility] [address] [facility] [address] [place] [phone] Lamonte Bradford MD [address] [facility] [address] [place] [address] Health Maintenance Due Date Last Done Comments Social Influencers of Health Screening 10/08/2022 COVID-19 Vaccine ( season) 2024 11/10/2021, 01/09/2021, 12/24/2020 Depression Screening 01/29/2025 01/30/2024 Cervical Cancer Screening: Pap Smear 01/30/2025 01/30/2022, 01/30/2022 Breast Cancer Screening 10/19/2026 10/19/2024, 07/11 Cholesterol Screening (Lipid Panel) 01/29/2029 01/30/2024, 01/30/2024, 01/30/2024, Additional history exists DTaP,Tdap,and Td Vaccines (4 - Td or Tdap) 07/28/2034 07/28/2024, 02/03/2015, 01/03/2015 MMR Vaccines Aged Out 02/03/2015, 01/03/2015 No lo nger eligible based on patient's age to complete this topic Hepatitis B Vaccines Completed 12/20/2015, 03/17/2015, 02/03/2015 HIV Screening Completed 09/19/2020, 09/19/2020 Hepatitis C Screening Completed 09/19/2020 Pneumococcal Vaccine: Pediatrics (0 to 5 Years) and At-Risk Patients (6 to 64 Years) Completed 01/24/2023 Influenza Vaccine Completed 07/28/2024, , 08/07/2022, Additional history exists HIB Vaccines Aged Out No longer eligi ble based on patient's age to complete this topic HPV Vaccines Aged Out No longer eligi ble based on patient's age to complete this topic Hepatitis A Vaccines Aged Out No long er eligible based on patient's age to complete this topic IPV Vaccines Aged Out No longer eligi ble based on patient's age to complete this topic Meningococcal ACWY Vaccine Aged Out N o longer eligible based on patient's age to complete this topic RSV Immunization Patients Under 20 months Aged Out No longer eligible based on patient's age to complete this topic Varicella Vaccines Aged Out No longer eligible based on patient's age to complete this topic Goals Goal Patient Goal Type Associated Problems [...] weeks General Yes Ly Balderas, PT Note: Dx Board Operator Goals 1. Patient will be independent with home exercise program to maintain therapeutic gains. 2. Patient will be able to do IADLs like cooking/cleaning with min to no pain 3. Patient will be able to lift things with min to no pain or limitation To get rid of the pain in my arm General Yes Dede Wadsworth P, OTR/L Procedures Procedure Name Priority Date/Time Associated Diagnosis Comments MG MAMMO DIGITAL DIAGNOSTIC W PAPO BILAT Routine 10/19/2024 2:19 PM EST Malignant neoplasm of upper-outer quadrant of left breast in female, estrogen receptor positive (CMS/HCC) LIPID PANEL Routine 01/30/2024 HM PAP SMEAR Routine 01/30/2022 HEPATITIS C SCREENING Routine 09/19/2020 HIV SCREENING Routine 09/19/2020 from Last 3 Months or Most Recently Relevant to Health Maintenance Results * MG Mammo Digital Diagnostic w Papo bilat (10/19/2024 2:19 PM EST) Anatomical Region Laterality Modality Breast Bilateral Mammography 10/19/2024 2:14 PM EST Addenda Addendum by Andrea Crowder MD on 10/19/2024 2:31 PM EST EXAM: MG MAMMO DIGITAL DIAGNOSTIC W PAPO BILAT EXAM DATE AND TIME: 10/19/2024 1:09 PM HISTORY: ??Excisional biopsy of the left breast for invasive ductal carcinoma COMPARISON: ??08/05/2023 through 07/02/2023 TECHNIQUE: Bilateral digital breast tomosynthesis was performed in the CC and MLO projections. Computer aided detection with [employer] 3D 3.1 was employed. TISSUE DENSITY: b. There are scattered areas of fibroglandular density. FINDINGS: Postsurgical changes seen in the left upper outer quadrant at mid depth. ?? This is consistent with the patient's history. ??No suspicious masses, grouped microcalcifications, or areas of architectural distortion are seen. The skin and vascularity are unremarkable. IMPRESSION: Postsurgical changes on the left. ??Stable mammographic appearance of the right breast. ??No evidence of malignancy is seen. A negative mammogram in the presence of a clinically suspicious palpable abnormality does not preclude the possibility of malignancy or alter the indications for biopsy. BI-RADS: ??Category 2: Benign RECOMMENDATION(S): 1: Routine screening mammogram BILATERAL in 1 year. G0202, [id number], [id number] -------- FINAL REPORT -------- Dictated By: ANDREA CROWDER Dictated Date: 10/19/2024 14:14 ET Assigned Physician: ANDREA CROWDER Reviewed and Electronically Signed By: ANDREA CROWDER Signed Date: 10/19/2024 14:31 ET Workstation ID: [id number] Transcribed By: Self Edit Transcribed Date: 10/19/2024 14:14 ET Impressions 10/19/2024 2:31 PM EST Postsurgical changes on the left. ??Stable mammographic appearance of the right breast. ??No evidence of malignancy is seen. A negative mammogram in the presence of a clinically suspicious palpable abnormality does not preclude the possibility of malignancy or alter the indications for biopsy. BI-RADS: ??Category 2: Benign RECOMMENDATION(S): 1: Routine screening mammogram BILATERAL in 1 year. G0202, [id number], [id number] -------- FINAL REPORT -------- Dictated By: ANDREA CROWDER Dictated Date: 10/19/2024 14:14 ET Assigned Physician: ANDREA CROWDER Reviewed and Electronically Signed By: ANDREA CROWDER Signed Date: 10/19/2024 14:31 ET Workstation ID: [id number] Transcribed By: Self Edit Transcribed Date: 10/19/2024 14:14 ET Narrative 10/19/2024 2:31 PM EST EXAM: MG MAMMO DIGITAL DIAGNOSTIC W PAPO BILAT EXAM DATE AND TIME: 10/19/2024 1:09 PM HISTORY: ??Excisional biopsy of the left breast for invasive ductal carcinoma COMPARISON: ??08/05/2023 through 07/02/2023 TECHNIQUE: Bilateral digital breast tomosynthesis was performed in the CC and MLO projections. Computer aided detection with [employer] 3D 3.1 was employed. TISSUE DENSITY: b. There are scattered areas of fibroglandular density. FINDINGS: Postsurgical changes seen in the left upper outer quadrant at mid depth. ??This is consistent with the patient's history. ??No suspicious masses, grouped microcalcifications, or areas of architectural distortion are seen. The skin and vascularity are unremarkable. Jeremías Best MD IMG BI PROCEDURES * Lipid panel (01/30/2024) LDL/HDL Ratio 0 Comment:no interpretation Triglycerides 0 mg/dL Comment:no interpretation Cholesterol 0 mg/dL Comment:no interpretation HDL 0 mg/dL Comment:no interpretation LDL Cholesterol 0 mg/dL Comment:no interpretation Blood Venous blood specimen / Unknown Historical Provider LAB BLOOD ORDERAB LES * Pap Smear (01/30/2022) Pap smear no interperation Historical Provider [facility] * HIV Screening (09/19/2020) HIV Screening abstract Historical Provider [facility] * Hepatitis C Screening (09/19/2020) Hepatitis C Screening abstract Historical Provider [facility] from Last 3 Months or Most Recently Relevant to Health Maintenance Care Teams Washroom Attendant Relationship Specialty Start Date End Date Arleen Campbell FNP [address] [place] [phone] PCP - General Internal Medicine 08/11/21
--- OUTSIDE RECORDS SUMMARY | 2024-12-01 13:40 | XMS_ITS | Clinical Summary ---
Author Organization [facility] Address [address] [place] [address] Care Team Providers Care Drive In Teller Name Role Phone Valeria Au NP Primary Care Provider +1- [phone] Allergies No known active allergies Medications Medication Sig Dispensed Refills Start Date End Date Status acetaminophen (TYLENOL) 500 MG tablet Take by mouth every 6 (six) hours as needed for pain. 0 Active dexamethasone (DECADRON) 4 MG tablet TAKE 2 TABLETS BY MOUTH EVERY MORNING WITH BREAKFAST STARTING DAY AFTER CHEMOTHERAPY & TAKE X3 DAYS 6 tablet 3 11/26/2023 Active Benadryl soln 12.5mg/5 mL:Maalox:Lidocain e Viscous 2% mouth wash 1:1:1 SWISH AND SPIT 10 ML EVERY 4 HOURS NEEDED 240 mL 2 01/21/2024 Active letrozole (FEMARA) 2.5 MG tablet Take 1 tablet (2.5 mg total) by mouth daily 90 tablet 3 01/21/2024 Active ondansetron (ZOFRAN) 8 MG tablet TAKE 1 TABLET BY MOUTH EVERY 8 HOURS NEEDED FOR NAUSEA 30 tablet 2 02/18/2024 Active Active Problems Problem Noted Date Diagnosed Date Malignant neoplasm of upper- outer quadrant of left breast in female, estrogen receptor positive 08/24/2023 Social History Tobacco Use Types Packs/Day Years Used Date Smoking Tobacco: Never Assessed Sex and Gender Information Value Date Recorded Sex Assigned at Female 09/14/2023 12:47 PM EST Gender Identity Not on file Sexual Orientation Not on file Job Start Date Occupation Industry Not on file Not on file Not on file Last Filed Vital Signs Vital Sign Reading Time Taken Comments Blood Pressure 103/70 07/17/2024 2:26 PM EDT Pulse 82 07/17/2024 2:26 PM EDT Temperature 36.6 ??C (97.8 ??F) 07/17/2024 2:26 PM ED T Respiratory Rate 18 07/17/2024 2:26 PM EDT Oxygen Saturation 100% 07/17/2024 2:26 PM EDT Inhaled Oxygen Concentration - - Weight 57.2 kg (126 lb) 06/05/2024 2:49 PM EDT Height 157.5 cm (5' 2 ) 06/05/2024 2:49 PM EDT Body Mass Index 23.05 06/05/2024 2:49 PM EDT Plan of Treatment Health Maintenance Due Date Last Done Comments Hepatitis C Screening 1980 Depression Screening 1992 BMI Counseling 01/15/1998 Preventative Health Evaluation 01/15/1998 Cervical Cancer Screening (Pap Smear) 01/15/2001 COVID-19 Vaccine (3 - Pfizer risk series) 02/06/2021 01/09/2021, 12/24/2020 Influenza Vaccine (#1) 2024 2, 07/24/2021, 07/14/2020, Additional history exists DTap / Tdap / Td (4 - Td or Tdap) 07/28/2034 07/28/2024, 02/03/2015, 01/03/2015 Hepatitis B Vaccines Completed 12/20/2015, 03/17/2015, 02/03/2015 Pneumococcal Vaccine Completed 01/24/2023 RSV Ped < 20 months Aged Out No longe r eligible based on patient's age to complete this topic Care Teams Drive In Teller Relationship Specialty Start Date End Date Valeria Au NP [address] [place] [address] PCP - General Nurse Practitioner 07/31/23
--- OUTSIDE RECORDS SUMMARY | 2024-12-01 13:40 | XMS_ITS | Encounter Summary ---
Author Organization [facility] Address [address] [place] [address] Care Team Providers Care Cafe Team Member Name Role Phone ShannanArleen Primary Care Provider [phone]- [phone] Reason for Visit * Consultation (Routine) - Authorized Specialty Diagnoses / Procedures Referred By Enrico sweet Referred To Contact Occupational Therapy Diagnoses Malignant neoplasm of upper-outer quadrant of left breast in female, estrogen receptor positive (CMS/HCC) Left shoulder pain, unspecified chronicity Lamonte Bradford MD [address] [address] [facility] Occupational Therapy [address] [address] Referral ID Status Reason Start Date Expiration Date Visits Requested Visits Authorized [id number] Authorized Specialty Services Required 11/19/2024 11/19/2025 20 20 Encounter Details Date Type Department Care Team (Late st Contact Info) Description 11/30/2024 3:30 PM EST Treatment [facility] Occupational Therapy [address] [phone] Dede Wadsworth, OTR/L Left shoulder pain, unspecified chronicity (Primary Dx) Social History Tobacco Use Types Packs/Day Years Used Date Smoking Tobacco: Never Assessed Sex and Gender Information Value Date Recorded Sex Assigned at Not on file Gender Identity Not on file Sexual Orientation Not on file Job Start Date Occupation Industry Not on file Not on file Not on file documented as of this encounter Progress Notes * Dede Maranda Wadsworth, OTR/L - 11/30/2024 3:30 PM EST [facility] - Outpatient OCCUPATIONAL THERAPY DAILY TREATMENT NOTE Date: 11/30/2024 Visit Number: 4 Patient Name: Abhijit Willis : 1980 Age: 44 y.o. Gender: female Diagnosis: No diagnosis found. Date of Onset: 11/19/2024 Referring Provider: Lamonte Bradford MD Insurance: [place] / Product Type: *No Product type* / Language: Pt. 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 Precautions: Consider left Upper quadrant lymph edema precautions SUBJECTIVE Subjective Report: I am doing much better I can now sleep in my left side Pain: Pain with max shoulder ROM ( flexion and ER) OBJECTIVE Patient presents with less palpable tissue tightness in left breast / chest Patient demo increased painfree ROM in her left shoulder TREATMENT INTERVENTION Procedures: Manual therapy according to [...] serratus punch and flexion in scapular plane) Diagonal trunk stretch With medium resistance theraband 2 x10 reps ( SH ER / IR/EX and flexion ) Pain Reassessment: no new onset of pain Assessment/Response To Treatment: Good I am getting so much better I will do these exercises at home Patient Education: Education provided: Yes Education Provided To: Patient utilizing Explanation and Demonstration mode(s) of education Response to Education: Good PLAN POC Development/Review: No Change in the Plan of Care; Participants: Patient Equipment Recommended: ; Equipment Provided: theraband for HEP GOALS Decreasing pain Improving towards independence for HEP Total Treatment Time: 60 minutes Documentation completed by Dede Wadsworth OTR/Charanjit documented in this encounter Plan of Treatment Upcoming Encounters Date Type Department Care Team (Late st Contact Info) Description 12/08/2024 3:00 PM EST Treatment [facility] Occupational Therapy [address] [place] [phone] Dede Wadsworth, OTR/L 12/10/2024 2:15 PM EST Office Visit [facility] Hematology Oncology [address] [place] [phone] Jeremías Best MD [address] [place] [phone] 12/10/2024 3:00 PM EST Treatment [facility] Occupational Therapy [address] [place] [phone] Dede Wadsworth, OTR/L 12/14/2024 3:30 PM EST Treatment [facility] Occupational Therapy [address] [place] [phone] Dede Wadsworth, OTR/L 12/17/2024 3:00 PM EST Treatment [facility] Occupational Therapy [address] [place] [phone] Dede Wadswroth, OTR/L 12/28/2024 3:30 PM EST Treatment [facility] Occupational Therapy [address] [place] [phone] Dede Wadsworth, OTR/L 01/07/2025 2:30 PM EST Appointment [facility] [address] [place] [address] 04/01/2025 1:00 PM EDT Office Visit [facility] [address] [place] [phone] Lamonte Bradford MD [address] [facility] [address] [place], [place] [phone] documented as of this encounter Goals Goal [...] weeks General Yes Ly Balderas, 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 Patient will be independent with [...] Diagnosis Left shoulder pain, unspecified chronicity- Primary documented in this encounter Care Teams Cafe Team Member Relationship Specialty Start Date End Date Arleen Campbell FNP [address] [place] [phone] PCP - General Internal Medicine 08/11/21 documented as of this encounter
--- OUTSIDE RECORDS SUMMARY | 2024-12-01 13:40 | XMS_ITS | Encounter Summary ---
Author Organization [facility] Address [address] [place] [address] Care Team Providers Care Java Support Engineer Name Role Phone Arleen Campbell Primary Care Provider [phone]- [phone] Reason for Visit * Consultation (Routine) - Authorized Specialty Diagnoses / Procedures Referred By Enrico sweet Referred To Contact Occupational Therapy Diagnoses Malignant neoplasm of upper-outer quadrant of left breast in female, estrogen receptor positive (CMS/HCC) Left shoulder pain, unspecified chronicity Lamonte Bradford MD [address] [address] [facility] Occupational Therapy [address] [address] Referral ID Status Reason Start Date Expiration Date Visits Requested Visits Authorized [id number] Authorized Specialty Services Required 11/19/2024 11/19/2025 20 20 Encounter Details Date Type Department Care Team (Late st Contact Info) Description 11/19/2024 1:00 PM EST Evaluation [facility] Occupational Therapy [address] [phone] Dede Wadsworth, OTR/L Left shoulder [...] as of this encounter Progress Notes * DOTTIE Purcell - 11/19/2024 1:00 PM EST .lym * DOTTIE Purcell - 11/19/2024 1:00 PM EST Images from the original note were not included. [facility] - Outpatient OCCUPATIONAL THERAPY EVALUATION Date: 11/19/2024 Visit Number: 1 Patient Name: Abhijit Willis : 1980 Age: 44 y.o. Gender: female Diagnosis: No diagnosis found. Date of Onset: 11/19/2024 Referring Provider: No ref. provider found Insurance: [place] / Product Type: *No Product type* / Language: Pt. 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 Patient did receive successful lymph edema treatments to address lymph edema in her left breast andpain in her left upper quadrant. At the end of these treatments patient was pain free. 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 ) The pain in my shoulder makes it hard to sleep and I cannot sleep on my left side Pain: Left axilla/ proximal left humerus / lateral chest Home Environment: Lives with her family ( mother/ father and brother ) in a one family home 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 Prior Level of Function: Before CA treatments independent in ADL's and I ADL's without pain OBJECTIVE General Observations/Comments: 44 year old female Of appropriate height versus weight Left breast present with radiation fibrosis ( medial / inferior part) Left breast larger than her right / enlarged pores Tissue tightness;left lateral chest/ axilla and humerus Cognition: Unremarkable Dominant Hand: right OT Shoulder ROM: Right Left AROM PROM SHOULDER AROM PROM 160 160 Flexion 145 145 70 70 Extension 70 70 160 160 Scaption 145 145 160 160 Abduction 145 145 80 80 Internal Rotation 70 70 90 90 External Rotation 80 80 Strength RIGHT LEFT COMMENTS SHOULDER Flexion 5/5: Normal 4/5: Good Extension 5/5: Normal 4/5: Good Abduction 5/5: Normal 4/5: Good External Rotation 5/5: Normal 4-/5: Good Minus Internal Rotation 5/5: Normal 4-/5: Good Minus ELBOW/ FOREARM MMT 5:5 Palpation: fibrosis medial / inferior part of left breast Tissue tightness left chest/ Upper arm and axilla Sensation to touch intact Special Tests: Left Upper Extremity Lymphedema L 3rd Finger Distal Phalange (cm): 4.3 cm L 3rd Finger Middle Phalange (cm): 5 cm L 3rd Finger Proximal Phalange (cm): 5.8 cm L Metacarpals (cm): 18.7 cm L Palm (cm): 19.5 cm L Wrist (cm): 14.5 cm L 8 cm Above Wrist (cm): 17.3 cm L 16 cm Above Wrist (cm): 22.5 cm L 24 cm Above Wrist (cm): 22.5 cm L 32 cm Above Wrist (cm): 25.5 cm L Elbow (cm): 22 cm L 40 cm Above Wrist (cm): 27.2 cm Total circumferences left UE= 204.2 cm Right Upper Extremity Lymphedema R 3rd Finger Distal Phalange (cm): 4.5 cm R 3rd Finger Middle Phalange (cm): 5.4 cm R 3rd Finger Proximal Phalange (cm): 6 cm R Metacarpals (cm): 19 cm R Palm (cm): 19.8 cm R Wrist (cm): 14.7 cm R 8 cm Above Wrist (cm): 19 cm R 16 cm Above Wrist (cm): 23.5 cm R 24 cm Above Wrist (cm): 22 cm R 32 cm Above Wrist (cm): 24.5 cm R Elbow (cm): 22 cm R 40 cm Above Wrist (cm): 27.8 cm Total circumferences right UE = 208.2 cm General Assessments: Joint mobs ; G/H joint mobs no inferior glide left Rounded posture Periscap strength left 3:5 compared to right 3+:5 Other Assessments: TREATMENT INTERVENTIONS: (This Date of Service) Initiated soft tissue work ( myofascial technique to address tissue tightness) Initiated joint mobs ( posterior capsula stretch / G-H mobs for all directions Provided patient with swell spot ( made out of spaghetti foam and stockinette) to address fibrosis left breast Pain Reassessment: Patient tolerated session well ASSESSMENT Abhijit Willis is a 44 y.o. female presenting for outpatient occupational therapy with complaints ofpain . Significant clinical findings include: tissue tightness resulting from Radiation therapy andpoor postur. Skilled Occupational therapy is medically necessary to to decrease pain and improve functional use of left UE Establish independent HEP / lymph edema self management plan . Rehabilitation Potential: Rehab Potential: Condition Has Potential to Improve Learning Needs: Were Patient Learning needs assessed Yes Learning Needs: Plan of Care Learning Preferences: Explanation and Demonstration Barriers to Learning: No Barriers to Learning Patient Education: [x] Discussed, with patient and/or caregiver, the importance of therapy and appointment compliance in order to achieve goals in a timely manner. Education provided: POC/ lymph edema precautions / Education Provided To: Patient utilizing Explanation and Demonstration mode(s) of education Response to Education: Verbal Understanding GOALS Goals Addressed None PLAN POC Development/Review: Initial Evaluation; Participants: Patient Skilled Therapy Plan Required: YES- Reasons for Rehab and Medical Necessity -- Additional Comments:to reduce pain in left UE to allow for increased functional use Planned Therapy Interventions: therapeutic exercise / self care / manual therapy Planned Therapy Duration: 12 visits Recommended Consults: none BILLING (This Date of Service) TOTAL TREATMENT TIME: 75 minutes Evaluation Medium Complexity Justification ::: An examination of body systems using standardized tests and measures in addressing a total of 3 or more elements from any of the following body structures and functions, activity limitations, and/or participation restrictions Documentation completed by JOAQUINA Purcell/Charanjit [facility] [address] [place] [phone] Dept: [phone] Dept PATIENT NAME: Abhijit Willis : 1980 Certification: This is to certify that the above named patient, who is under my care, requires skilled Therapy services as described in the above treatment plan. I further certify that the services outlined in this plan are skilled and medically necessary. I have reviewed this plan for rehabilitation services, and I recommend that these services continue to meet the above stated goals and plan. SIGNATURE: DATE No ref. provider found Referring provider Phone: N/A Fax: documented in this encounter Plan of Treatment Upcoming Encounters Date Type Department Care Team (Late st Contact Info) Description 12/08/2024 3:00 PM EST Treatment [facility] Occupational Therapy [address] [place] [phone] Dede Wadsworth OTR/L 12/10/2024 2:15 PM EST Office Visit [facility] Hematology Oncology [address] [place] [phone] Jeremías Best MD [address] [place] [phone] 12/10/2024 3:00 PM EST Treatment [facility] Occupational Therapy [address] [phone] Dede Wadsworth OTR/L 12/14/2024 3:30 PM EST Treatment [facility] [address] [place] [phone] Dede Wadsworth OTR/L 12/17/2024 3:00 PM EST Treatment [facility] Occupational Therapy [address] [place] [phone] Dede Wadsworth, OTR/L 12/28/2024 3:30 PM EST Treatment [facility] Occupational Therapy [address] [place] [phone] Dede Wadsworth, OTR/L 01/07/2025 2:30 PM EST Appointment [facility] [address] [place] [phone] 04/01/2025 1:00 PM EDT Office Visit [facility] [address] [place] [phone] Lamonte Bradford MD 271 [facility] [address] [place] [address] documented as of this encounter Goals Goal [...] weeks General Yes Ly Balderas, PT Note: 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 Patient will be independent with [...] lymphedema documented in this encounter Care Teams Java Support Engineer Relationship Specialty Start Date End Date Arleen Campbell FNP [facility] [place] [phone] PCP - General Internal Medicine 08/11/21 documented as of this encounter
--- OUTSIDE RECORDS SUMMARY | 2024-12-01 13:40 | XMS_ITS ---
Author Organization [facility] Address [address] [place] [address] Phone Care Team Providers Care Casing Material Weigher Name Role Phone Arleen Campbell HEAD OF ACQUISITIONS Primary Care Provider +1- [phone] Active Problems Problem Noted Date Diagnosed Date Post-mastectomy pain syndrome 11/26/2024 Class 2 obesity due to exces s calories with body mass index (BMI) of 35.0 to 35.9 in adult 08/08/2024 Malignant neoplasm of upper- outer quadrant of left breast in female, estrogen receptor positive 08/08/2024 Current Oncology Plans GOSERELIN ( ZOLADEX ) 10.8 MG EVERY 12 WEEKS* Plan Start Date:10/04/2024 Plan Provider:Mili Mayen DO Linked Problems Malignant neoplasm of upper- outer quadrant of left breast in female, estrogen receptor positive (CMS/HCC) Treatment Medications goserelin (ZOLADEX) GOSERELIN ( ZOLADEX ) 10.8 MG EVERY 12 WEEKS* Plan Start Date:10/09/2024 Plan Provider:Jeremías Best MD Linked Problems Malignant neoplasm of upper- outer quadrant of left breast in female, estrogen receptor positive (CMS/HCC) Treatment Medications goserelin (ZOLADEX) Past Plans No past plan information found. Radiation Treatments * No radiation treatments are documented for this patient in [facility]. Treatments may have been administered in another system.
--- OUTSIDE RECORDS SUMMARY | 2024-12-01 13:40 | XMS_ITS ---
Author Organization [facility] Address [address] [place] [phone] Care Team Providers Care Pourer Buggy Ladle Name Role Phone Valeria Au NP Primary Care Provider +1- [phone] Active Problems Problem Noted Date Diagnosed Date Malignant neoplasm of upper- outer quadrant of left breast in female, estrogen receptor positive 08/24/2023 Current Oncology Plans [facility] GOSERELIN 10.8MG (ZOLADEX)* Plan Start Date:01/31/2024 Plan Provider:Jeremías Best MD Linked Problems Malignant neoplasm of upper- outer quadrant of left breast in female, estrogen receptor positive (HCC) Treatment Medications goserelin (ZOLADEX) Past Plans ONCOLOGY TREATMENT Plan Name Start Date Discontinue Date Treatment Medications Discontinue Reason Plan Provider Cycles [facility] BCN OP TC - DOCETAXEL + CYCLOPHOSPHAMIDE [id number] (3 HRS) 202201/07/2024 albuterol (PROVENTIL)cycloPHOSph amide (CYTOXAN) chemo infusiondexamethasone (DECADRON)dexamethason e sod phosphate PF (DECADRON)diphenhydrAM INE (BENADRYL)DOCEtaxel (TAXOTERE) infusionEPINEPHrinefam otidine (PF) (PEPCID)hydrocortisone (SOLU-CORTEF) IVmeperidine (DEMEROL) 25 MG/MLpalonosetron (ALOXI)Saline Flush 0.9 %sodium chloride (NS) 0.9 %sodium chloride 0.9% bolus (NS) Therapy Complete Jeremías Best MD 4 of 4 cycles started Radiation Treatments * No radiation treatments are documented for this patient in [facility]. Treatments may have been administered in another system.
--- OUTSIDE RECORDS SUMMARY | 2024-12-01 13:40 | XMS_ITS | Clinical Summary ---
Author Organization [facility] Address [address] [place] [address] Care Team Providers Care Senior Bi Architect Name Role Phone Angelica Mcelroy MD Primary Care Provider [phone] Source Comments PLEASE NOTE, if this patient is a minor, it may be UNLAWFUL to discuss sensitive information that is contained in these records (such as FAMILY PLANNING, MENTAL HEALTH or SUBSTANCE ABUSE) with the minor patient's parent or other person without the patient's specific authorization.[facility] Allergies No known active allergies Medications VITAMIN D3 25 mcg (1,000 unit) capsule Take 2 Caps by mouth once daily 08/27/20 20 Active multivit with calcium,iron,min (MULTIPLE VITAMIN, WOMENS ORAL) 0 Refills, Maintenance, 06/19/21 10:31:00 EDT, Partial fill upon patient request if the prescription is for a schedule II opioid drug. 06/19/20 21 Active omeprazole (PRILOSEC) [address] capsuleIndications :Gastroesophageal reflux disease TAKE 1 CAPSULE BY MOUTH EVERY DAY IN THE MORNING BEFORE BREAKFAST 90 Capsule 1 03/31/20 24 Active letrozole (FEMARA) 2.5 mg tablet Take 1 Tablet by mouth once daily 06/25/20 24 Active ferrous sulfate 325 mg (65 mg iron) tabletIndications: Iron deficiency anemia due to chronic blood loss TAKE 1 TABLET BY MOUTH EVERY OTHER DAY 45 Tablet 1 08/24/20 24 Active levothyroxine 88 mcg tabletIndications: Postoperative hypothyroidism Take 1 Tablet by mouth every morning before breakfast 09/07/20 24 Active Active Problems Problem Noted Date Diagnosed Date Financial difficulties 06/10/2024 Osteopenia of multiple sites 02/10/2024 Overview (02/10/2024): 01/31/24 DEXA Invasive ductal carcinoma of left breast (HCC-CM S) 01/09/2024 Overview (09/07/2024): Also following [facility] Breast surgery [id number] 06/2024 [facility] Oncology [id number]: Pt presented in 07/2023 with a left-sided stage IIA T1bN1 invasive ductal breast cancer, ER/MA-positive, HER2-negative. S/p lumpectomy and sentinel lymph node biopsy on 08/07/2023. She presented in 08/2023 with a synchronous left-sided stage I T1aN0 invasive ductal breast cancer, ER/MA- positive, HER2-negative, diagnosed in 08/2023. S/p radiation Currently undergoing chemotherapy I recommended adjuvant hormonal therapy with a GnRH agonist and an aromatase inhibitor x5 years. tolerating Zoladex/letrozole reasonably well. She developed mild left arm lymphedema. I referred her to the [facility]. Malignant neoplasm of upper- outer quadrant of left breast in female, estrogen receptor positive (HCC-CMS) 08/24/2023 Mixed hyperlipidemia 01/25/2023 Chronic midline low back pain with right-sided s ciatica 09/19/2020 Class 2 obesity due to exces s calories without serious comorbidity with body mass index (BMI) of 35.0 to 35.9 in adult 09/19/2020 Encounter for screening mamm ogram for malignant neoplasm of breast 09/19/2020 Immune to varicella 05/06/2019 Closed fracture of left ankle 05/05/2019 Overview (05/05/2019): Hx of ORIF left ankle fracture 01/2019. Hx of Left distal tibial Pilon & Distal Fibular Fracture and ankle dislocation fracture. Pt attended PT Vitamin D deficiency 05/05/2019 Gastroesophageal reflux disease without esophagi tis 05/05/2019 Pap smear for cervical cancer screening 12/12/19 18 Overview (12/12/2017): NEPA 11/26/2017 Chlamydia: Negative N. Gonorrhoeae: Negative ThinPrep pap: Negative for squamous intraepithelial lesion and malignancy Palpitations 06/18/2016 Overweight (BMI 25.0-29.9) 11/17/2015 Hypothyroidism 02/03/2015 Overview (09/16/2024): Following [facility] every 3 months. S/p thyroidectomy 2/2 multinodular toxic goiter [facility] 02/24/2018 Mildly enlarged thyroid gland with normal radioiodine uptake. Likely Multinodular goiter. Dx in [place] abt ~2009. On Meds since then. TSH= 0.01--> <0.01; FT4= 1.92-->1.5; Thyroid Ab neg. >> TSH was low and dose changed from 100 to 75mcg in 03/2015. >>Decreased the dose of Levothyroxine from 75 to 50mcg in 11/2015 again based on labs, 50 to 25mcg in 06/2016 and referred to Endocrine >> Thyroid USG(01/05/16, [facility]): Heterogeneous mildly enlarged thyroid gland containing multiple subcentimeter hypoechoic nodules. >> Endocrine [facility] 10/03/16- Levothyroxine Dose changed to 25mcg qd in mid 06/2016 and she feels well. Cont same. F/u labs. Plan repeat thyroid USG in 06/2017 and f/u after U/S. Thyroid US (06/05/2017, [facility]): Enlargement of the thyroid gland, with further increase in size since 01/05/16. Multiple hypoechoic possibly cystic subcentimeter non-aggressive appearing nodules are again seen throughout the gland. >> Endo f/u 07/03/17. TSH wnl off LT4 for 2 mo. Plan to get Free T3 and TSH R antibody and TPO. Or repeat labs in 3-4 wks. If TSH remains suppressed, scheduled [facility] thyroid Seen by Endo Aug 2018- Recheck lab, adjust methimazole, US ordered Resolved Problems Problem Noted Date Diagnosed Date Resolved Date Axillary swelling 06/17/2017 05/05/2019 Overview (07/17/2017): USG at [facility] 06/10/17 show IMPRESSION: No solid or cystic mass definable in Rt breast area of concern.BI-RADS Category 1 PF, negative, clinical management of palpable abnormality recommended. No visible axillary lymph nodes and areas of indicated concern without concerning features. Immunization due 03/17/2015 05/05/2019 Encounters Date Type Department Care Team Description 09/07/2024 8:40 AM EST Office Visit [facility] [address] [place] [phone] Angelica Mcelroy MD Postoperative hypothyroidism (Primary Dx); Invasive ductal carcinoma of left breast (HCC-CMS); Left arm pain 09/07/2024 Travel 09/02/2024 Scan Pathology [facility] [address] [place] [phone] Angelica Mcelroy MD from Last 3 Months Immunizations Name Administration Dates Next Due Flu, Cell Culture based, Mul ti Dose, 6m+, Flucelvax 07/14/2020 Flu, Cell Culture based, Pre servative Free, 6m+, Flucelvax 08/07/2022,08/19/2017 Flu, Preservative Free 07/24/2021,2018,07/04/2018,2015,11/13/2015 Hep B, Adult/Adol (ENERGIX/RECOMBIVAX) 12/20/2015,03/17/2015,02/03/2015 Influenza, Whole 08/20/2016 MMR (MMR II/Priorix) 02/03/2015,01/03/2015 PFIZER COVID VACCINE, PURPLE CAP, 12+ 01/09/2021 ,12/24/2020 PNEUMOCOCCAL CONJUGATE PCV 2 0 (Prevnar) 01/24/2023 TDAP 01/03/2015 Td (adult), 5 Lf tetanus tox oid, preservative free 02/03/2015 Family History Medical History Relation Name Comments Arthritis Father High Cholesterol Father Hypertension Father Breast cancer Maternal Aunt Arthritis Mother Heart Problems Mother High Cholesterol Mother Hypertension Mother Relation Name Status Comments Father Alive Maternal Aunt Alive Mother Alive Social History Tobacco Use Types Packs/Day Years Used Date Smoking Tobacco: Light Smoker Smokeless Tobacco: Never Tobacco Cessation:Ready to Q uit: Not Asked; Counseling Given: Not Answered Comments:quit 3 weeks ago Alcohol Use Standard Drinks/Week Comments No 0 (1 standard drink = 0.6 oz pur e alcohol) Social Connections Answer Date Recorded Connectedness 1 06/10/2024 Financial Resource Strain Answer Date R ecorded Financial Resource Strain 2 2023 Stress Answer Date Recorded Stress 1 06/10/2024 Physical Activity Answer Date Recorded Physical Activity 2 06/10/2024 Food Insecurity Answer Date Recorded Food 1 06/10/2024 Transportation Needs Answer Date Record ed Transportation 1 06/10/2024 Housing Stability Answer Date Recorded Housing 1 06/10/2024 Safety and Environment Answer Date Kenroy rded Safety 1 06/10/2024 Utilities Answer Date Recorded Utilities 1 06/10/2024 Employment Answer Date Recorded Stress 1 06/10/2024 Comments No Sex and Gender Information Value Date Recorded Sex Assigned at Female 09/12/2017 11:42 AM PST Legal Sex Female 12:10 PM PST Gender Identity Female 09/12/2017 11:42 AM PST Sexual Orientation Straight 09/12/2017 11 :42 AM PST Last Filed Vital Signs Vital Sign Reading Time Taken Comments Blood Pressure 120/62 09/07/2024 8:51 AM EST Pulse 84 09/07/2024 8:51 AM EST Temperature 36.8 ??C (98.2 ??F) 09/07/2024 8:51 AM ES T Respiratory Rate 16 09/07/2024 8:51 AM EST Oxygen Saturation 98% 09/07/2024 8:51 AM EST Inhaled Oxygen Concentration - - Weight 59.3 kg (130 lb 12.8 oz) 09/07/2024 8:51 AM EST Height 157.5 cm (5' 2 ) 09/07/2024 8:51 AM EST Body Mass Index 23.92 09/07/2024 8:51 AM EST Plan of Treatment Health Maintenance Due Date Last Done Comments HPV Screening 1980 Pap + HPV 1980 Tobacco Cessation Counseling (#1) 01/24/2024 019 [id number] ( season) 2024 11/10/2021, 01/09/2021, 12/24/2020 Alcohol and Drug Screen 11/04/2024 01/30/20 24, 01/24/2023, 01/24/2022, Additional history exists Depression Annual Screen 11/04/2024 01/30/2024 Annual Preventive Care Visit 01/29/2025, 01/24/2023, 01/24/2022, Additional history exists Cervical Cancer Screening 01/30/2025 Pap Smear 01/30/2025 01/30/2022, 11/05, 11/26/2017 Relationship Safety Screening/Counseling 06/10/2025 06/10/2024, 06/14/2023, 01/24/2023, Additional history exists TSH Monitoring 06/25/2025 06/25/2024, 01/03, 01/30/2024, Additional history exists Hypertension Screening (#1) 09/07/2025 Breast Cancer Screening (Mammogram) 10/19/2025 10/19/2024, 10/19/2024, 08/07/2023, Additional history exists Diabetes Screening 06/25/2027 06/25/2024, 0 01/30/2024, 06/14/2023, Additional history exists Lipid Screening 01/29/2029 01/30/2024, 01/03, 01/24/2023, Additional history exists Imm-DTaP/Tdap/Td (4 - Td or Tdap) 07/28/2034 07/28/2024, 02/03/2015, 01/03/2015 Imm-Hepatitis B Discontinued 12/20/2015, 03/04, 02/03/2015 Vaginal Pap Discontinued 11/26/2017 HIV Screening Completed 09/19/2020, 09/04, 05/05/2019, Additional history exists Hepatitis C Screening Completed 09/19/2020 Imm-Pneumococcal Completed 01/24/2023 Imm-Influenza Completed 07/28/2024, 06/2023, 08/07/2022, Additional history exists Cervical Ablation/Cold-Knife Conization Discontinued Cervical Cryotherapy Discontinued Colposcopy Discontinued Endometrial Biopsy Discontinued Excision/Leep Discontinued HPV Genotyping Discontinued Vulvoscopy Discontinued Procedures Procedure Name Priority Date/Time Associated Diagnosis Comments IMAGING SCANNED DOCUMENT 10/19/2024 3:00 AM EST HISTORIC MAMMOGRAM 10/19/2024 3: 00 AM EST REFERRAL SCANNED DOCUMENT 09/17/2024 3:00 AM EST PATHOLOGY SCANNED DOCUMENT 09/02/2024 3:00 AM EDT TSH W/RFLX FREE T4 Routine 06/25/2024 3: 05 PM EDT Hypothyroidism, unspecified type COMPREHENSIVE METABOLIC PANEL Routine 06/25/2024 3:05 PM EDT Other fatigue Palpitations LIPID PANEL Routine 01/30/2024 3:18 PM EDT Mixed hyperlipidemia THIN PREP PAP W/RFLX HPV RNA E6/E7 (Q) Routine 01/30/2022 2:31 PM EDT Pap smear for cervical cancer screening ANTIBODY HIV-1&HIV-2 SINGLE RESULT Routine 09/19/2020 11:49 AM EST Encounter for general adult medical examination w/o abnormal findings HEPATITIS A,B,C PANEL Routine 09/19/2020 11:49 AM EST Encounter for general adult medical examination w/o abnormal findings from Last 3 Months or Most Recently Relevant to Health Maintenance Results * HISTORIC MAMMOGRAM (10/19/2024 3:00 AM EST) 10/19/2024 3:00 AM EST Valeria BRITO IMG MAMMO Final Res ult * IMAGING SCANNED DOCUMENT (10/19/2024 3:00 AM EST) 10/19/2024 3:00 AM EST Valeria Campbell HOME HEALTH CARE COORDINATOR SCAN IMAGING Final Res ult * REFERRAL SCANNED DOCUMENT (09/17/2024 3:00 AM EST) 09/17/2024 3:00 AM EST Angelica Mcelroy MD SCAN REFERRAL Final Result * PATHOLOGY SCANNED DOCUMENT (09/02/2024 3:00 AM EDT) 09/02/2024 3:00 AM EDT us Angelica Mcelroy MD SCAN LAB Final Result * (ABNORMAL) TSH W/RFLX FREE T4 (06/25/2024 3:05 PM EDT) Pathologist [facility] TSH W/REFLEX TO FT4 0.10(L) 0.40 - 4.50 mIU/L [facility] Comment: ?Reference Range ?> or = 20 Years ??0.40-4.50 ? Ranges ?First trimester ?0.26-2.66 ?Second trimester ?? 0.55-2.73 ?Third trimester ?0.43-2.91 Blood Blood / Unknown 06/25/2024 3 :05 PM EDT 06/25/2024 3:05 PM EDT Bre Hancock PA-C LAB - BLOOD DRAW Edited Resu lt - Final [facility] [address] [place] [id number], [facility] [address] [place] [phone] * COMPREHENSIVE METABOLIC PANEL (06/25/2024 3:05 PM EDT) [facility] GLUCOSE 93 65 - 99 mg/dL [facility] Comment: ?Fasting reference interval UREA NITROGEN (BUN) 21 7 - 25 mg/dL [facility] CREATININE (blood) 0.71 0.50 - 0.99 mg/dL [facility] EGFR 107 > OR = 60 mL/min/1. 73m2 [facility] BUN/CREATININE RATIO SEE NOTE: [facility] Comment: ?? Not Reported: BUN and Creatinine are within ?? reference range. ? SODIUM 141 135 - 146 mmol/L [facility] POTASSIUM 4.3 3.5 - 5.3 mmol/L [facility] CHLORIDE 103 98 - 110 mmol/L [facility] CARBON DIOXIDE 30 20 - 32 mmol/L [facility] CALCIUM 9.8 8.6 - 10.2 mg/dL [facility] PROTEIN, TOTAL 6.7 6.1 - 8.1 g/dL [facility] ALBUMIN 4.1 3.6 - 5.1 g/dL [facility] GLOBULIN 2.6 1.9 - 3.7 g/dL (calc) [facility] ALBUMIN/GLOBULI N RATIO 1.6 1.0 - 2.5 (calc) [facility] BILIRUBIN, TOTAL 0.5 0.2 - 1.2 mg/dL [facility] ALKALINE PHOSPHATASE 58 31 - 125 U/L [facility] AST 18 10 - 30 U/L [facility] ALT 19 6 - 29 U/L [facility] Blood Blood / Unknown 06/25/2024 3 :05 PM EDT 06/25/2024 3:05 PM EDT us Bre Hancock PA-C LAB - BLOOD DRAW Final Resul t [facility] [address] [address], [facility] [address] [phone] * LIPID PANEL (01/30/2024 3:18 PM EDT) CHOLESTEROL, TOTAL 171 <200 mg/dL [facility] HDL CHOLESTEROL 54 > OR = 50 mg/dL [facility] TRIGLYCERIDES 87 <150 mg/dL [facility] LDL-CHOLESTEROL 99 99 mg/dL (calc) [facility] Comment: Reference range: <100 Desirable range <100 mg/dL for primary prevention; ?? <70 mg/dL for patients with CHD or diabetic patients with > or = 2 CHD risk factors. LDL-C is now calculated using the Jazmin calculation, which is a validated novel method providing better accuracy than the Friedewald equation in the estimation of LDL-C. Eduard BARBA et al. CARMITA. 2013;310(19): 3696-5690 (http://education.[employer].Qubell/faq/ABJ565) CHOL/HDLC RATIO 3.2 <5.0 (calc) [facility] NON-HDL CHOLESTEROL 117 <130 mg/dL (calc) [facility] Comment: For patients with diabetes plus 1 major ASCVD risk factor, treating to a non-HDL-C goal of <100 mg/dL (LDL-C of <70 mg/dL) is considered a therapeutic option. Blood Blood / Unknown 01/30/2024 3 :18 PM EDT 01/30/2024 3:19 PM EDT Bre Hancock PA-C LAB - BLOOD DRAW Final Resul t [facility] [address] [place] [address], [facility] [address] [place] [phone] * THIN PREP PAP W/RFLX HPV RNA E6/E7 (Q) (01/30/2022 2:31 PM EDT) CLINICAL INFORMATION See Note [facility] Comment:None given LMP See Note [facility] Comment:[id number] PREV. PAP [facility] PREV. BX See Note [facility] Comment:NONE GIVEN SOURCE See Note [facility] Comment:Cervix, Endocervix STATEMENT OF ADEQUACY See Note [facility] Comment: Satisfactory for evaluation. Endocervical/transformation zone component absent. INTERPRETATION/RESU LT See Note [facility] Comment:Negative for intraep ithelial lesion or malignancy. PAPER CONE MACHINE OPERATOR See Note [facility]Call Comment: CURT, CT(ASCP) CT screening location: [address] ??[address] COMMENT [facility] CYTOLOGY Cervix uteri structure / Unknown 01/30/2022 2:31 PM EDT 01/31/2022 5:54 AM EDT Narrative [facility] - 02/01/2022 2:24 PM EDT EXPLANATORY NOTE: The Pap is a screening test for cervical cancer. It is not a diagnostic test and is subject to false negative and false positive results. It is most reliable when a satisfactory sample, regularly obtained, is submitted with relevant clinical findings and history, and when the Pap result is evaluated along with historic and current clinical information. Bre Hancock PA-C LAB - NO BLOOD DRAW Final Re sult Performing Organization Address [facility]/ZIP Co de Phone Number [facility] [address] [address], [facility] [address] [address] * (ABNORMAL) HEPATITIS A,B,C PANEL (09/19/2020 11:49 AM EST) HEPATITIS B SURFACE ANTIBODY POSITIVE(A) NEGATIVE [facility] HEPATITIS B SURFACE ANTIGEN NEGATIVE NEGATIVE [facility] Comment: Over the counter supplements containing high doses of biotin may interfere with this assay. ??If interference is suspected, patients shoud be retested after refraining from biotin supplements for 72 hours. HEPATITIS C VIRUS DIAGNOSTIC NEGATIVE NEGATIVE [facility] HEPATITIS B CORE ANTIBODY NEGATIVE NEGATIVE [facility] HEPATITIS A ANTIBODY TOTAL POSITIVE(A) NEGATIVE [facility] Comment: Over the counter supplements containing high doses of biotin may interfere with this assay. ??If interference is suspected, patients shoud be retested after refraining from biotin supplements for 72 hours. Blood Blood / Unknown 09/19/2020 1 1:49 AM EST 09/19/2020 5:00 PM EST Narrative [facility] - 09/19/2020 7:09 PM EST [employer], a member of [address] [address] Manager Sign - Tenisha Negrete [place] ID [id number] ORD# [id number] Liana BRITO LAB - BLOOD DRAW Edited Res ult - Final Performing Organization Address City/[facility]/ZIP Co de Phone Number [address] [address], * HIV-1 & HIV-2 ANTIBODIES (09/19/2020 11:49 AM EST) HIV 1 AND 2 ANTIBODY SCREEN NEGATIVE NEGATIVE [facility] Comment: This assay is a 4th generation assay allowing for earlier detection of HIV infection by detecting the presence of the HIV-1 p24 antigen as well as the traditional antibodies to HIV type 1 (including group O) and type 2. ??Use of a 4th generation assay is the current CDC recommendation for HIV screening. Blood Blood / Unknown 09/19/2020 1 1:49 AM EST 09/19/2020 5:00 PM EST Narrative [facility] - 09/19/2020 7:38 PM EST [employer] [address] Manager Sign - Tenisha Negrete MD PT ID [id number] ORD# [id number] Liana ORTIZP LAB - BLOOD DRAW Edited Res ult - Final [address] [address], from Last 3 Months or Most Recently Relevant to Health Maintenance Insurance [id number] Care Teams Senior Bi Architect Relationship Specialty Start Date End Date Angelica Mcelroy MD [address] [place] [address] PCP - General Family Medicine, Physician 07/01/24
--- OUTSIDE RECORDS SUMMARY | 2024-12-01 13:40 | XMS_ITS | Encounter Summary ---
Author Organization [facility] Address [address] [place] [address] Care Team Providers Care Ironworker Helper Shop Name Role Phone Arleen Campbell DAYRL Primary Care Provider [phone] Encounter Details Date Type Department Care Team (Late st Contact Info) Description 11/19/2024 Plan of Care Documentation [facility] Occupational Therapy [address] [place] [phone] Social History Tobacco Use Types Packs/Day Years Used Date Smoking Tobacco: Never Assessed Sex and Gender Information Value Date Recorded Sex Assigned at Not on file Gender Identity Not on file Sexual Orientation Not on file Job Start Date Occupation Industry Not on file Not on file Not on file documented as of this encounter Progress Notes * JOAQUINA Purcell/Charanjit - 11/19/2024 6:25 PM EST Images from the original note were not included. [facility] - Outpatient OCCUPATIONAL THERAPY EVALUATION Date: 11/19/2024 [...] *No Product type* / Language: Pt. speaks Divehi as preferred language, however declines school bus driver 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 Prior Level of Function: [...] to Education: Verbal Understanding GOALS Goals Addressed This Visit's Progress OT STG's 4-6 visits, LTG 12 visits Patient will be able to demo RTC [...] In HEP ( RTC/ periscapula strengthening ) To get rid of the pain in my arm (pt-stated) PLAN POC Development/Review: Initial Evaluation; Participants: Patient [...] 75 minutes Evaluation Medium Complexity Justification ::: A history of present problem with 1 - 2 personal factors and/or co-morbidities that impact the plan of care Documentation completed by Dede Wadsworth OTR/Charanjit [facility] [address] [place] [phone] Dept: [phone] Dept PATIENT NAME: Abhijit Willis : 1980 [...] Info) Description 12/08/2024 3:00 PM EST Treatment [facility] [address] [place] [phone] Dede Wadsworth, OTR/L 12/10/2024 2:15 PM EST Office Visit [facility] Hematology Oncology [address] [place] [phone] Jeremías Best MD [address] [place] [phone] 12/10/2024 3:00 PM EST Treatment [facility] [address] [place] [phone] Dede Wadsworth, OTR/L 12/14/2024 3:30 PM EST Treatment [facility] [address] [place] [phone] Dede Wadsworth, OTR/L 12/17/2024 3:00 PM EST Treatment [facility] [address] [place] [phone] Dede Wadsworth, OTR/L 12/28/2024 3:30 PM EST Treatment [facility] [address] [place] [phone] Dede Wadsworth, OTR/L 01/07/2025 2:30 PM EST Appointment [facility] [address] [place] [phone] 04/01/2025 1:00 PM EDT Office Visit [facility] [place] [address] [place] [phone] Lamonte Bradford MD [address] [place] [address] documented as of this encounter Goals Goal [...] weeks General Yes Ly Balderas, PT Note: 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 Patient will be independent with [...] on filedocumented in this encounter Care Teams Ironworker Helper Shop Relationship Specialty Start Date End Date Arleen Campbell FNP [address] [place] [phone] PCP - General Internal Medicine 08/11/21 documented as of this encounter
== END 2024-12-01 13:27 | disposition home or self-care (01) ==
PROVIDERS: PCP Internal Medicine; Visit Provider Student in an Organized Health Care Education/Training Program
DX: E05.20 Thyrotoxicosis with toxic multinodular goiter without thyrotoxic crisis or storm (principal); E89.0 Postprocedural hypothyroidism; Z79.811 Long term (current) use of aromatase inhibitors; M85.89 Other specified disorders of bone density and structure, multiple sites
CPT/HCPCS: 99214

== ENCOUNTER 2024-12-01 12:50 | Outpatient (REF) | payer MEDICAID, SELFPAY ==
--- OUTSIDE RECORDS SUMMARY | 2024-12-01 14:37 | XMS_ITS | Clinical Summary ---
Author Organization [facility] Address [address] [place] [address] Care Team Providers Care Well Drill Operator Rotary Drill Name Role Phone Valeria Au NP Primary Care Provider [phone]- [phone] Allergies No known active allergies Medications Medication [...] age to complete this topic Care Teams Well Drill Operator Rotary Drill Relationship Specialty Start Date End Date Valeria Au NP [address] [place] [address] PCP - General Nurse Practitioner 07/31/23
--- OUTSIDE RECORDS SUMMARY | 2024-12-01 14:37 | XMS_ITS | Encounter Summary ---
Author Organization [facility] Address [address] [place] [address] Care Team Providers Care Learning Coordinator Name Role Phone Arleen Campbell Primary Care Provider +1- [phone] Reason for Visit * Consultation (Routine) - Authorized Specialty Diagnoses / Procedures Referred By Enrico sweet Referred To Contact Occupational Therapy Diagnoses Malignant neoplasm of upper-outer quadrant of left breast in female, estrogen receptor positive (CMS/HCC) Left shoulder pain, unspecified chronicity Lamonte Bradford MD [address] [address] [facility] Occupational Therapy [address] [address] Referral ID Status Reason Start Date Expiration Date Visits Requested Visits Authorized [id number] Authorized Specialty Services Required 11/19/2024 11/19/2025 20 20 Encounter Details Date Type Department Care Team (Late st Contact Info) Description 11/23/2024 3:30 PM EST Treatment [facility] Occupational Therapy [address] [address] Dede Wadsworth, OTR/L Left shoulder [...] Wadsworth, OTR/Charanjit - 11/23/2024 3:30 PM EST [facility] - Outpatient OCCUPATIONAL THERAPY DAILY TREATMENT [...] *No Product type* / Language: Pt. speaks Kazakh as preferred language, however declines deaf interpreter Allergies: has No Known Allergies. Precautions: Consider [...] Info) Description 12/08/2024 3:00 PM EST Treatment [facility] Occupational Therapy [address] [place] [phone] Dede Wadsworth, OTR/L 12/10/2024 2:15 PM EST Office Visit [facility] Hematology Oncology [address] [place] [phone] Jeremías Best MD [address] [place] [phone] 12/10/2024 3:00 PM EST Treatment [facility] Occupational Therapy [address] [place] [phone] Dede Wadsworth, OTR/L 12/14/2024 3:30 PM EST Treatment [facility] Occupational Therapy [address] [place] [phone] Dede Wadsworth, OTR/L 12/17/2024 3:00 PM EST Treatment [facility] Occupational Therapy [address] [place] [phone] Dede Wadsworth, OTR/L 12/28/2024 3:30 PM EST Treatment [facility] Occupational Therapy [address] [place] [address] Dede Wadsworth OTR/L 01/07/2025 2:30 PM EST Appointment [facility] Infusion Center [address] 2nd [place] [address] 04/01/2025 1:00 PM EDT Office [facility] [address] [place] [phone] Lamonte Bradford MD [address] [facility] [address] [place] [address] documented as of this encounter [...] weeks General Yes Ly Balderas, 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 Patient will be independent with [...] lymphedema documented in this encounter Care Teams Learning Coordinator Relationship Specialty Start Date End Date Arleen Campbell FNP [address] [place] [phone] PCP - General Internal Medicine 08/11/21 documented as of this encounter
--- OUTSIDE RECORDS SUMMARY | 2024-12-01 14:37 | XMS_ITS ---
Author Organization [facility] Address [address] [place] [address] Care Team Providers Care Snowsport Instructor Name Role Phone Valeria Au NP Primary Care Provider +1- [phone] Active Problems Problem Noted Date Diagnosed Date Malignant neoplasm of upper- outer quadrant of left breast in female, estrogen receptor positive 08/24/[address] [facility] GOSERELIN 10.8MG (ZOLADEX)* Plan Start Date:01/31/2024 Plan Provider:Jeremías Best MD Linked Problems Malignant neoplasm of upper- outer quadrant of left breast in female, estrogen receptor positive (HCC) Treatment Medications goserelin (ZOLADEX) Past Plans ONCOLOGY TREATMENT Plan Name Start Date Discontinue Date Treatment Medications Discontinue Reason Plan Provider Cycles [facility] - DOCETAXEL + CYCLOPHOSPHAMIDE [id number] (3 HRS) 202201/07/2024 albuterol (PROVENTIL)cycloPHOSph amide (CYTOXAN) chemo infusiondexamethasone (DECADRON)dexamethason e sod phosphate PF (DECADRON)diphenhydrAM INE (BENADRYL)DOCEtaxel (TAXOTERE) infusionEPINEPHrinefam otidine (PF) (PEPCID)hydrocortisone (SOLU-CORTEF) IVmeperidine (DEMEROL) 25 MG/MLpalonosetron (ALOXI)Saline Flush 0.9 %sodium chloride (NS) 0.9 %sodium chloride 0.9% bolus (NS) Therapy Complete Jeremías Best MD 4 of 4 cycles started Radiation Treatments * No radiation treatments are documented for this patient in [facility]. Treatments may have been administered in another system.
--- OUTSIDE RECORDS SUMMARY | 2024-12-01 14:37 | XMS_ITS | Encounter Summary ---
Author Organization [facility] Address [address] [place] [address] Care Team Providers Care Poker Prop Player Name Role Phone Arleen Campbell DARYL Primary Care Provider +1- [phone] Encounter Details Date Type Department Care Team (Late st Contact Info) Description 11/19/2024 Plan of Care Documentation [facility] Occupational Therapy [address] [place] [phone] Social History Tobacco Use Types Packs/Day [...] from the original note were not included. [facility] - Outpatient OCCUPATIONAL THERAPY EVALUATION Date: [...] *No Product type* / Language: Pt. 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 Prior Level of Function: [...] by Dede Wadsworth OTR/Charanjit [facility] [address] [place] [phone] Dept: [phone] Dept PATIENT NAME: Abhijit Willis : 1980 [...] 3:00 PM EST Treatment [facility] Occup[facility] [address] [place] [phone] Dede Wadsworth, OTR/L 12/10/2024 2:15 PM EST Office Visit [facility] Hematology Oncology [address] [place] [phone] Jeremías Best MD 271 [place] [address] 12/10/2024 3:00 PM EST Treatment [facility] Occupational Therapy [address] [place] [phone] Dede Wadsworth, OTR/L 12/14/2024 3:30 PM EST Treatment [facility] [address] [place] [phone] Dede Wadsworth, OTR/L 12/17/2024 3:00 PM EST Treatment [facility] [address] [place] [phone] Dede Wadsworth, OTR/L 12/28/2024 3:30 PM EST Treatment [facility] Occupational Therapy [address] [place] [phone] Dede Wadsworth, OTR/L 01/07/2025 2:30 PM EST Appointment [facility] Infusion Center [address] [facility] 2nd [place] [phone] 04/01/2025 1:00 PM EDT Office Visit [facility] [place] [address] [facility] [address] [place] [phone] Lamonte Bradford MD 271 [facility] [address] [place] [address] documented as of this encounter Goals Goal [...] weeks General Yes Ly Balderas, PT Note: Strategic Business Development Goals 1. Patient will be independent with [...] on filedocumented in this encounter Care Teams Poker Prop Player Relationship Specialty Start Date End Date Arleen Campbell FNP [address] [place] [phone] PCP - General Internal Medicine 08/11/21 documented as of this encounter
--- OUTSIDE RECORDS SUMMARY | 2024-12-01 14:37 | XMS_ITS | Encounter Summary ---
Author Organization [facility] Address [address] [place], [place] [id number] Care Team Providers Care Air Traffic Supervisor Name Role Phone Valeria Au NP Primary Care Provider +1- [phone] Encounter Details Date Type Department Care Team Description 09/17/2023 Social Work [facility] Oncology Services [address] [place] [address] Todd Chang MSW Social History Tobacco Use [...] on filedocumented in this encounter Care Teams Air Traffic Supervisor Relationship Specialty Start Date End Date Valeria Au NP [address] [place] [address] PCP - General Nurse Practitioner 07/31/23 documented as of this encounter
--- OUTSIDE RECORDS SUMMARY | 2024-12-01 14:37 | XMS_ITS | Encounter Summary ---
Author Organization [facility] Address [address] [id number] Care Team Providers Care Commercial Tire Service Technician Name Role Phone Valeria Au NP Primary Care Provider +1- [phone] Encounter Details Date Type Department Care Team Description 10/08/2023 Social Work [facility] Oncology Services [address] [place] [phone] Todd Chang MSW Social History Tobacco Use [...] on filedocumented in this encounter Care Teams Commercial Tire Service Technician Relationship Specialty Start Date End Date Valeria Au NP [address] [place] [address] PCP - General Nurse Practitioner 07/31/23 documented as of this encounter
--- OUTSIDE RECORDS SUMMARY | 2024-12-01 14:37 | XMS_ITS | Encounter Summary ---
Author Organization [facility] Address [address] [place] [address] Care Team Providers Care Industrial Tractor Driver Name Role Phone ShannanArleen Primary Care Provider +1- [phone] Reason for Visit * Consultation (Routine) - Authorized Specialty Diagnoses / Procedures Referred By Enrico sweet Referred To Contact Occupational Therapy Diagnoses Malignant neoplasm of upper-outer quadrant of left breast in female, estrogen receptor positive (CMS/HCC) Left shoulder pain, unspecified chronicity Lamonte Bradford MD [address] [address] [facility] Occupational Therapy [address] [address] Referral ID Status Reason Start Date Expiration Date Visits Requested Visits Authorized [id number] Authorized Specialty Services Required 11/19/2024 11/19/2025 20 20 Encounter Details Date Type Department Care Team (Late st Contact Info) Description 11/30/2024 3:30 PM EST Treatment [facility] Occupational Therapy [address] [address] Dede Wadsworth, OTR/L Left shoulder [...] Wadsworth, OTR/L - 11/30/2024 3:30 PM EST [facility] - Outpatient OCCUPATIONAL THERAPY DAILY TREATMENT NOTE Date: 11/30/2024 Visit Number: 4 Patient Name: Abhijit Willis : 1980 Age: 44 y.o. Gender: female Diagnosis: No diagnosis found. Date of Onset: 11/19/2024 Referring Provider: Lamonte Bradford MD Insurance: [place] / [place] / Product Type: *No Product type* / Language: Pt. speaks Japanese as preferred language, however declines clinical resource nurse Allergies: has No Known Allergies. Precautions: Consider [...] Info) Description 12/08/2024 3:00 PM EST Treatment [facility] Occupational Therapy [address] [place] [phone] Dede Wadsworth, OTR/L 12/10/2024 2:15 PM EST Office Visit [facility] Hematology Oncology [address] [place] [phone] Jeremías Best MD [address] [place] [phone] 12/10/2024 3:00 PM EST Treatment [facility] Occupational Therapy [address] [place] [phone] Dede Wadsworth, OTR/L 12/14/2024 3:30 PM EST Treatment [facility] Occupational Therapy [address] [place] [phone] Dede Wadsworth, OTR/L 12/17/2024 3:00 PM EST Treatment [facility] Occupational Therapy [address] [place] [phone] Dede Wadsworth, OTR/L 12/28/2024 3:30 PM EST Treatment [facility] Occupational Therapy [address] [place] [phone] Dede Wadsworth, OTR/L 01/07/2025 2:30 PM EST Appointment [facility] Infusion Center [address] 2nd [place] [address] 04/01/2025 1:00 PM EDT Office Visit [facility] [address] [place] [phone] Lamonte Bradford MD [address] [facility] [address] [place], [place] [phone] documented as of this encounter Goals Goal [...] weeks General Yes Ly Balderas, PT Note: Player Development Executive Goals 1. Patient will be independent with [...] Primary documented in this encounter Care Teams Industrial Tractor Driver Relationship Specialty Start Date End Date Arleen Campbell FNP [address] [place] [phone] PCP - General Internal Medicine 08/11/21 documented as of this encounter
--- OUTSIDE RECORDS SUMMARY | 2024-12-01 14:37 | XMS_ITS | Encounter Summary ---
Author Organization [facility] Address [address] [place] [address] Care Team Providers Care Block Trimmer Name Role Phone Arleen Campbell Primary Care Provider +1- [phone] Reason for Visit * Consultation (Routine) - Authorized Specialty Diagnoses / Procedures Referred By Enrico sweet Referred To Contact Occupational Therapy Diagnoses Malignant neoplasm of upper-outer quadrant of left breast in female, estrogen receptor positive (CMS/HCC) Left shoulder pain, unspecified chronicity Lamonte Bradford MD [address] [address] [facility] Occupational Therapy [address] [address] Referral ID Status Reason Start Date Expiration Date Visits Requested Visits Authorized [id number] Authorized Specialty Services Required 11/19/2024 11/19/2025 20 20 Encounter Details Date Type Department Care Team (Late st Contact Info) Description 11/26/2024 3:30 PM EST Treatment [facility] Occupational Therapy [address] [address] Dede Wadsworth, OTR/L Left shoulder [...] Wadsworth, OTR/Charanjit - 11/26/2024 3:30 PM EST [facility] - Outpatient OCCUPATIONAL THERAPY DAILY TREATMENT NOTE Date: 11/26/2024 Visit Number: 3 Patient Name: Abhijit Willis : 1980 Age: 44 y.o. Gender: female Diagnosis: ICD-10-CM ICD-9-CM 1. Left shoulder pain, unspecified chronicity M25.512 719.41 2. Lymphatic edema I89.0 457.1 Date of Onset: 11/19/2024 Referring Provider: Lamonte Bradford MD Insurance: [place] / Product Type: *No Product type* / Language: Pt. speaks German as preferred language, however declines trust administrative assistant Allergies: has No Known Allergies. Precautions: Left [...] Description 12/08/2024 3:00 PM EST Treatment [facility] Occupational Therapy [address] [phone] Dede Wadsworth OTR/L 12/10/2024 2:15 PM EST Office Visit [facility] Hematology Oncology [address] [place] [address] Jeremías Best MD [address] [place] [address] 12/10/2024 3:00 PM EST Treatment [facility] Occupational Therapy [address] [phone] Dede Wadsworth OTR/L 12/14/2024 3:30 PM EST Treatment [facility] Occupational Therapy [address] [place] [phone] Dede Wadsworth OTR/L 12/17/2024 3:00 PM EST Treatment [facility] Occupational Therapy [address] [phone] Dede Wadsworth, OTR/L 12/28/2024 3:30 PM EST Treatment [facility] Occupational Therapy [address] [place] [address] Dede Wadsworth, OTR/L 01/07/2025 2:30 PM EST Appointment [facility] Center [address] [place] [address] 04/01/2025 1:00 PM EDT [facility] [address] [place] [address] Lamonte Bradford MD 271 [facility] [address] [place], [place] [phone] documented as of this encounter Goals Goal [...] weeks General Yes Ly Balderas, PT Note: Skilled Nursing Goals 1. Patient will be independent with [...] lymphedema documented in this encounter Care Teams Block Trimmer Relationship Specialty Start Date End Date Arleen Campbell FNP [address] [place] [address] PCP - General Internal Medicine 08/11/21 documented as of this encounter
--- OUTSIDE RECORDS SUMMARY | 2024-12-01 14:38 | XMS_ITS ---
Author Organization [facility] Address [address] [place] [address] Phone Care Team Providers Care Salon Designer Name Role Phone Arleen Campbell WALL CRANE OPERATOR Primary Care Provider +1- [phone] Active Problems Problem Noted Date Diagnosed Date [...] treatments are documented for this patient in [facility]. Treatments may have been administered in another system.
--- OUTSIDE RECORDS SUMMARY | 2024-12-01 14:38 | XMS_ITS | Clinical Summary ---
Author Organization [facility] Address [address] [place] [address] Care Team Providers Care Advertising Executive Name Role Phone Angelica Mcelroy MD Primary Care Provider [phone] Source Comments PLEASE NOTE, if this patient [...] (HCC-CM S) 01/09/2024 Overview (09/07/2024): Also following [facility] Breast surgery [id number] 06/2024 [facility] Oncology [id number]: Pt presented in 07/2023 with a left-sided stage IIA T1bN1 invasive ductal breast cancer, ER/CO-positive, HER2-negative. S/p lumpectomy and sentinel lymph node biopsy on 08/07/2023. She presented in 08/2023 with a synchronous left-sided stage I T1aN0 invasive ductal breast cancer, ER/CO- positive, HER2-negative, diagnosed in 08/2023. S/p radiation Currently undergoing chemotherapy I recommended adjuvant hormonal therapy with a GnRH agonist and an aromatase inhibitor x5 years. tolerating Zoladex/letrozole reasonably well. She developed mild left arm lymphedema. I referred her to the [facility]. Malignant neoplasm of upper- outer [...] 25.0-29.9) 11/17/2015 Hypothyroidism 02/03/2015 Overview (09/16/2024): Following [facility] every 3 months. 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 >> Endocrine [facility] 10/03/16- Levothyroxine Dose changed to 25mcg qd in mid 06/2016 and she feels well. Cont same. F/u labs. Plan repeat thyroid USG in 06/2017 and f/u after U/S. Thyroid US (06/05/2017, [facility]): Enlargement of the thyroid gland, with further [...] swelling 06/17/2017 05/05/2019 Overview (07/17/2017): USG at [facility] 06/10/17 show IMPRESSION: No solid or cystic mass definable in Rt breast area of concern.BI-RADS Category 1 PF, negative, clinical management of palpable abnormality recommended. No visible axillary lymph nodes and areas of indicated concern without concerning features. Immunization due 03/17/2015 05/05/2019 Encounters Date Type Department Care Team Description 09/07/2024 8:40 AM EST Office Visit [facility] [address] [place] [phone] Angelica Mcelroy MD Postoperative hypothyroidism (Primary Dx); Invasive ductal carcinoma of left breast (HCC-CMS); Left arm pain 09/07/2024 Travel 09/02/2024 Scan Pathology [facility] [address] [place] [address] Angelica Meclroy MD from Last 3 Months Immunizations Name [...] 1980 Tobacco Cessation Counseling (#1) 01/24/2024 019 [id number] ( season) 2024 11/10/2021, 01/09/2021, 12/24/2020 Alcohol [...] EST) 10/19/2024 3:00 AM EST Valeria Campbell SHOOK SPLICER SCAN IMAGING Final Res ult * REFERRAL SCANNED DOCUMENT (09/17/2024 3:00 AM EST) 09/17/2024 3:00 AM EST Angelica Mcelroy MD SCAN REFERRAL Final Result * PATHOLOGY SCANNED DOCUMENT (09/02/2024 3:00 AM EDT) 09/02/2024 3:00 AM EDT us Angelica Mcelroy MD SCAN LAB Final Result * (ABNORMAL) TSH W/RFLX FREE T4 (06/25/2024 3:05 PM EDT) Pathologist [facility] TSH W/REFLEX TO FT4 0.10(L) 0.40 - 4.50 mIU/L [employer] [employer] Comment: ?Reference Range ?> or = 20 Years ??0.40-4.50 ? Ranges ?First trimester ?0.26-2.66 ?Second trimester ?? 0.55-2.73 ?Third trimester ?0.43-2.91 Blood Blood / Unknown 06/25/2024 3 :05 PM EDT 06/25/2024 3:05 PM EDT Bre Hancock PA-C LAB - BLOOD DRAW Edited Resu lt - Final [facility] [address] [place] [address], [employer] [address] [place] [phone] * COMPREHENSIVE METABOLIC PANEL (06/25/2024 3:05 PM EDT) [facility] GLUCOSE 93 65 - 99 mg/dL [employer] Comment: ?Fasting reference interval UREA NITROGEN (BUN) 21 7 - 25 mg/dL [facility] CREATININE (blood) 0.71 0.50 - 0.99 mg/dL [employer] EGFR 107 > OR = 60 mL/min/1. 73m2 [employer] BUN/CREATININE RATIO SEE NOTE: [employer] [employer] Comment: ?? Not Reported: BUN and Creatinine are within ?? reference range. ? SODIUM 141 135 - 146 mmol/L [facility] POTASSIUM 4.3 3.5 - 5.3 mmol/L [facility] CHLORIDE 103 98 - 110 mmol/L [facility] CARBON DIOXIDE 30 20 - 32 mmol/L [facility] CALCIUM 9.8 8.6 - 10.2 mg/dL [facility] PROTEIN, TOTAL 6.7 6.1 - 8.1 g/dL [facility] ALBUMIN 4.1 3.6 - 5.1 g/dL [facility] GLOBULIN 2.6 1.9 - 3.7 g/dL (calc) [facility] ALBUMIN/GLOBULI N RATIO 1.6 1.0 - 2.5 (calc) [facility] BILIRUBIN, TOTAL 0.5 0.2 - 1.2 mg/dL [facility] ALKALINE PHOSPHATASE 58 31 - 125 U/L [facility] AST 18 10 - 30 U/L [facility] ALT 19 6 - 29 U/L [facility] Blood Blood / Unknown 06/25/2024 3 :05 PM EDT 06/25/2024 3:05 PM EDT us Bre Hancock PA-C LAB - BLOOD DRAW Final Resul t [facility] [address] [address], [facility] [address] [address] * LIPID PANEL (01/30/2024 3:18 PM EDT) CHOLESTEROL, TOTAL 171 <200 mg/dL [facility] HDL CHOLESTEROL 54 > OR = 50 mg/dL [facility] TRIGLYCERIDES 87 <150 mg/dL [facility] LDL-CHOLESTEROL 99 99 mg/dL (calc) [facility] Comment: Reference range: <100 Desirable range <100 mg/dL for primary prevention; ?? <70 mg/dL for patients with CHD or diabetic patients with > or = 2 CHD risk factors. LDL-C is now calculated using the Jazmin calculation, which is a validated novel method providing better accuracy than the Friedewald equation in the estimation of LDL-C. Eduard BARBA et al. CARMITA. 2013;310(19): 4276-2345 (http://education.Electronic Brailler.Molecular Imprints/faq/RTC236) CHOL/HDLC RATIO 3.2 <5.0 (calc) [facility] NON-HDL CHOLESTEROL 117 <130 mg/dL (calc) [facility] Comment: For patients with diabetes plus 1 major ASCVD risk factor, treating to a non-HDL-C goal of <100 mg/dL (LDL-C of <70 mg/dL) is considered a therapeutic option. Blood Blood / Unknown 01/30/2024 3 :18 PM EDT 01/30/2024 3:19 PM EDT Bre Hancock PA-C LAB - BLOOD DRAW Final Resul t [facility] [address] [place] [address], [employer] [employer] [address] [place] [phone] * THIN PREP PAP W/RFLX HPV RNA E6/E7 (Q) (01/30/2022 2:31 PM EDT) CLINICAL INFORMATION See Note [facility] Comment:None given LMP See Note [facility] Comment:[id number] PREV. PAP [facility] PREV. BX See Note [employer] Comment:NONE GIVEN SOURCE See Note [employer] Comment:Cervix, Endocervix STATEMENT OF ADEQUACY See Note [employer] [employer] Comment: Satisfactory for evaluation. Endocervical/transformation zone component absent. INTERPRETATION/RESU LT See Note [employer] Comment:Negative for intraep ithelial lesion or malignancy. MAIL CARRIER See Note moziy Comment: CURT, CT(ASCP) CT screening location: [address] ??[address] COMMENT [employer] CYTOLOGY Cervix uteri structure / Unknown 01/30/2022 2:31 PM EDT 01/31/2022 5:54 AM EDT Narrative [facility] [employer] - 02/01/2022 2:24 PM EDT EXPLANATORY NOTE: [...] DRAW Final Re sult Performing Organization Address [facility]/ZIP Co de Phone Number [facility] [address] [address], [facility] [address] [address] * (ABNORMAL) HEPATITIS A,B,C PANEL (09/19/2020 11:49 AM EST) HEPATITIS B SURFACE ANTIBODY POSITIVE(A) NEGATIVE [facility] HEPATITIS B SURFACE ANTIGEN NEGATIVE NEGATIVE [facility] Comment: Over the counter supplements containing high doses of biotin may interfere with this assay. ??If interference is suspected, patients shoud be retested after refraining from biotin supplements for 72 hours. HEPATITIS C VIRUS DIAGNOSTIC NEGATIVE NEGATIVE [facility] HEPATITIS B CORE ANTIBODY NEGATIVE NEGATIVE [facility] HEPATITIS A ANTIBODY TOTAL POSITIVE(A) NEGATIVE [facility] Comment: Over the counter supplements containing high doses of biotin may interfere with this assay. ??If interference is suspected, patients shoud be retested after refraining from biotin supplements for 72 hours. Blood Blood / Unknown 09/19/2020 1 1:49 AM EST 09/19/2020 5:[address] [facility] - 09/19/2020 7:09 PM EST [employer], a member of [address] [address] Incident Response Engineer - Tenisha Negrete MD PT ID [id number] ORD# [id number] Liana BRITO LAB - BLOOD DRAW Edited Res ult - Final Performing Organization Address City/[facility]/ZIP Co de Phone Number [address] [address], * HIV-1 & HIV-2 ANTIBODIES (09/19/2020 11:49 AM EST) HIV 1 AND 2 ANTIBODY SCREEN NEGATIVE NEGATIVE [facility] Comment: This assay is a 4th generation [...] AM EST 09/19/2020 5:00 PM EST Narrative [facility] - 09/19/2020 7:38 PM EST [employer] [address] Incident Response Engineer - Tenisha Negrete MD PT ID [id number] ORD# [id number] [facility] ORTIZP LAB - BLOOD DRAW Edited Res ult - Final [address] [address], from Last 3 Months or Most Recently Relevant to Health Maintenance Insurance [employer] Care Teams Advertising Executive Relationship Specialty Start Date End Date Angelica Mcelroy MD [address] [place] [address] PCP - General Family Medicine, Physician 07/01/24
--- OUTSIDE RECORDS SUMMARY | 2024-12-01 14:38 | XMS_ITS | Encounter Summary ---
Author Organization [facility] Address [address] [place] [address] Care Team Providers Care Mail Order Biller Name Role Phone Arleen Campbell Primary Care Provider [phone]- [phone] Reason for Visit * Consultation (Routine) - Authorized Specialty Diagnoses / Procedures Referred By Enrico sweet Referred To Contact Occupational Therapy Diagnoses Malignant neoplasm of upper-outer quadrant of left breast in female, estrogen receptor positive (CMS/HCC) Left shoulder pain, unspecified chronicity Lamonte Bradford MD [address] [address] [facility] Occupational Therapy [address] [address] Referral ID Status Reason Start Date Expiration Date Visits Requested Visits Authorized [id number] Authorized Specialty Services Required 11/19/2024 11/19/2025 20 20 Encounter Details Date Type Department Care Team (Late st Contact Info) Description 11/19/2024 1:00 PM EST Evaluation [facility] Occupational Therapy [address] [phone] Dede Wadsworth, OTR/L Left shoulder [...] from the original note were not included. [facility] - Outpatient OCCUPATIONAL THERAPY EVALUATION Date: 11/19/2024 Visit Number: 1 Patient Name: Abhijit Willis : 1980 Age: 44 y.o. Gender: female Diagnosis: No diagnosis found. Date of Onset: 11/19/2024 Referring Provider: No ref. provider found Insurance: [place] / Product Type: *No Product type* / Language: Pt. 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 Hematology Oncology [address] [place] [phone] Jeremías Best MD [address] [place] [phone] 12/10/2024 3:00 PM EST Treatment [facility] Occupational Therapy [address] [phone] Dede Wadsworth OTR/L 12/14/2024 3:30 PM EST Treatment [facility] [address] [place] [phone] Dede Wadsworth OTR/L 12/17/2024 3:00 PM EST Treatment [facility] Occupational Therapy [address] [place] [address] Dede Wadsworth, OTR/L 12/28/2024 3:30 PM EST Treatment [facility] Occupational Therapy [address] [place] [phone] Dede Wadsworth, OTR/L 01/07/2025 2:30 PM EST Appointment [facility] Infusion Center [address] [place] [phone] 04/01/2025 1:00 PM EDT Office Visit [facility] [address] [place] [address] Lamonte Bradford MD 271 [facility] [address] [place] [address] documented as of this encounter Goals Goal [...] weeks General Yes Ly Balderas, PT Note: Dental Treatment Coordinator Goals 1. Patient will be independent with [...] lymphedema documented in this encounter Care Teams Mail Order Biller Relationship Specialty Start Date End Date Arleen Campbell FNP [facility] [place] [address] PCP - General Internal Medicine 08/11/21 documented as of this encounter
--- OUTSIDE RECORDS SUMMARY | 2024-12-01 14:38 | XMS_ITS | Clinical Summary ---
Author Organization [facility] Address [address] [place] [address] Phone Care Team Providers Care Clerk Analyst Name Role Phone Arleen Campbell Primary Care Provider +1- [phone] Allergies No known active allergies Medications Medication [...] Team Description 11/30/2024 3:30 PM EST Treatment [facility] Occupational Therapy [address] [place] [phone] Gijzen, Dede P, OTR/L Left shoulder pain, unspecified chronicity (Primary Dx) 11/26/2024 3:30 PM EST Treatment [facility] Occupational [address] [phone] Gijzen, Dede P, OTR/L Left shoulder pain, unspecified chronicity (Primary Dx); Lymphatic edema 11/23/2024 3:30 PM EST Treatment [address] [phone] Perrijkalli Dede P, OTR/L Left shoulder pain, unspecified chronicity (Primary Dx); Lymphatic edema 11/19/2024 1:00 PM EST Evaluation [address] [phone] Perrijzen, Dede P, OTR/L Left shoulder pain, unspecified chronicity (Primary Dx); Lymphatic edema 11/19/2024 Plan of Care Documentation [facility] Occupational Therapy [address] [place] [phone] 10/20/2024 5:15 PM EST Treatment [facility] [address] [phone] David Donnelly PTA Left arm pain (Primary Dx) 10/19/2024 12:48 PM EST - 10/19/2024 11:59 PM EST Hospital Encounter [facility] [address] [place] [phone] Malignant neoplasm of upper-outer quadrant of left breast in female, estrogen receptor positive (CMS/HCC) Discharge Disposition: Home or Self Care 10/14/2024 4:30 PM EST Evaluation [facility] [address] [phone] Ly Balderas, PT Left arm pain (Primary Dx) 10/14/2024 Plan of Care Documentation [facility] [address] [phone] 10/09/2024 2:18 PM EST - 10/09/2024 11:59 PM EST Hospital Encounter [facility] Infusion Center [address] [facility] [address] [place] [address] Malignant neoplasm of upper-outer quadrant of left breast in female, estrogen receptor positive (CMS/HCC) (Primary Dx) Discharge Disposition: Home or Self Care 09/29/2024 2:40 PM EST Office Visit [facility] [address] [facility] [address] [place] [address] Lamonte Bradford MD Malignant neoplasm of upper-outer quadrant of left breast in female, estrogen receptor positive (CMS/HCC) (Primary Dx) 09/11/2024 Telephone [facility] Hematology Oncology [address] [place] [phone] Jeremías Best MD Appointment 09/10/2024 2:00 PM EST Office Visit [facility] Hematology Oncology [address] [place] [phone] Jeremías Best MD Malignant neoplasm of upper-outer [...] Info) Description 12/08/2024 3:00 PM EST Treatment [facility] Occupational Therapy [address] [place] [phone] Dede Wadsworth P, OTR/L 12/10/2024 2:15 PM EST Office Visit [facility] Hematology Oncology [address] [place] [phone] Jeremías Best MD [address] [place] [phone] 12/10/2024 3:00 PM EST Treatment [facility] Occupational Therapy [address] [place] [phone] Dede Wadsworth P, OTR/L 12/14/2024 3:30 PM EST Treatment [facility] Occupational Therapy [address] [place] [phone] Dede Wadsworth P, OTR/L 12/17/2024 3:00 PM EST Treatment [facility] Occupational Therapy [address] [place] [phone] Dede Wadsworth P, OTR/L 12/28/2024 3:30 PM EST Treatment [facility] Occupational Therapy [address] [place] [phone] eDde Wadsworth, OTR/L 01/07/2025 2:30 PM EST Appointment [facility] Infusion Center [address] [facility] 2[address] [place] [address] 04/01/2025 1:00 PM EDT Office Visit [facility] [address] [facility] [address] [place] [address] Lamonte Bradford MD [address] [facility] [address] [place] [address] Health Maintenance Due Date Last Done Comments [...] ) LTG in 8 weeks General Yes yL Balderas, PT 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 Patient will be independent with home exercise program to maintain therapeutic gains. 2. Patient will be able to do IADLs like cooking/cleaning with min to no pain 3. Patient will be able to lift things with min to no pain or limitation To get rid of the pain in my arm General Yes Dede Wasdworth P, OTR/L Procedures Procedure Name Priority Date/Time [...] and MLO projections. Computer aided detection with [employer] 3D 3.1 was employed. TISSUE DENSITY: b. [...] screening mammogram BILATERAL in 1 year. G0202, 07085, [address] -------- FINAL REPORT -------- Dictated By: ANDREA CROWDER Dictated Date: 10/19/2024 14:14 ET Assigned Physician: ANDREA CROWDER Reviewed and Electronically Signed By: ANDREA CROWDER Signed Date: 10/19/2024 14:31 ET Workstation ID: [id number] Transcribed By: Self Edit Transcribed Date: 10/19/2024 [...] screening mammogram BILATERAL in 1 year. G0202, 18355, [address]896 -------- FINAL REPORT -------- Dictated By: ANDREA CROWDER Dictated Date: 10/19/2024 14:14 ET Assigned Physician: ANDREA CROWDER Reviewed and Electronically Signed By: ANDREA CROWDER Signed Date: 10/19/2024 14:31 ET Workstation ID: [id number] Transcribed By: Self Edit Transcribed Date: 10/19/2024 14:14 ET Narrative 10/19/2024 2:31 PM EST EXAM: MG MAMMO DIGITAL DIAGNOSTIC W PAPO BILAT EXAM DATE AND TIME: 10/19/2024 1:09 PM HISTORY: ??Excisional biopsy of the left breast for invasive ductal carcinoma COMPARISON: ??08/05/2023 through 07/02/2023 TECHNIQUE: Bilateral digital breast tomosynthesis was performed in the CC and MLO projections. Computer aided detection with [employer] 3D 3.1 was employed. TISSUE DENSITY: b. [...] (01/30/2022) Pap smear no interperation Historical Provider [facility] * HIV Screening (09/19/2020) HIV Screening abstract Historical Provider [facility] * Hepatitis C Screening (09/19/2020) Hepatitis C Screening abstract Historical Provider [facility] from Last 3 Months or Most Recently Relevant to Health Maintenance Care Teams Clerk Analyst Relationship Specialty Start Date End Date Arleen Campbell FNP [address] [place] [phone] PCP - General Internal Medicine 08/11/21
[2024-12-01 15:26] LABS: Albumin Level 4.2 g/dL (3.5-5.0); Calcium 9.7 mg/dL (8.4-10.2); Estimated Glomerular Filt Rate > 60
[2024-12-01 15:43] LABS: Free T4 (Free Thyroxine) 1.24 ng/dL (0.71-1.85); Thyroid Stimulating Hormone 0.06 uIU/mL (0.32-4.0)
[2024-12-02 15:53] LABS: Triiodothyronine T3 Total 103 ng/dL (76-181)
[2024-12-03 10:38] LABS: Prot Elec - Albumin 4.3 g/dL (3.8-4.8); Prot Elec - Alpha1 0.3 g/dL (0.2-0.3); Prot Elec - Alpha2 0.7 g/dL (0.5-0.9); Prot Elec - Beta 1 0.4 g/dL (0.4-0.6); Prot Elec - Beta 2 0.4 g/dL (0.2-0.5)
[2024-12-07 17:23] LABS: IgA 184 mg/dL (47-310); IgG 1136 mg/dL (600-1640); IgM 55 mg/dL (50-300)
== END 2024-12-01 12:51 | disposition home or self-care (01) ==
LOC: HO.LAB 12:50
PROVIDERS: PCP Internal Medicine; Visit Provider Student in an Organized Health Care Education/Training Program
DX: E05.20 Thyrotoxicosis with toxic multinodular goiter without thyrotoxic crisis or storm (principal); E89.0 Postprocedural hypothyroidism; M85.80 Other specified disorders of bone density and structure, unspecified site; Z79.811 Long term (current) use of aromatase inhibitors
CPT/HCPCS: 36415; 82040; 82310; 82565; 82784; 84165; 84439; 84443; 84480; 86334; 99212

== ENCOUNTER 2024-12-08 10:40 | Outpatient (REF) | payer MEDICAID, SELFPAY ==
--- OUTSIDE RECORDS SUMMARY | 2024-12-08 11:33 | XMS_ITS | Encounter Summary ---
Author Organization [facility] Address [address] [place], [place] [id number] Care Team Providers Care Sales Promotion Representative Name Role Phone Valeria Au NP Primary Care Provider +1- [phone] Encounter Details Date Type Department Care Team Description 10/08/2023 Social Work [facility] Oncology Services [address] [place] [phone] Todd Chang MSW Social History Tobacco Use [...] on filedocumented in this encounter Care Teams Sales Promotion Representative Relationship Specialty Start Date End Date Valeria Au NP [address] [place] [address] PCP - General Nurse Practitioner 07/31/23 documented as of this encounter
--- OUTSIDE RECORDS SUMMARY | 2024-12-08 11:33 | XMS_ITS | Encounter Summary ---
Author Organization [facility] Address [address] [place] [address] Care Team Providers Care Prover Name Role Phone ShannanArleen Primary Care Provider +1- [phone] Reason for Visit * Consultation (Routine) - Authorized Specialty Diagnoses / Procedures Referred By Enrico sweet Referred To Contact Occupational Therapy Diagnoses Malignant neoplasm of upper-outer quadrant of left breast in female, estrogen receptor positive (CMS/HCC) Left shoulder pain, unspecified chronicity Lamonte Bradford MD [address] [address] [facility] Occupational Therapy [address] [address] Referral ID Status Reason Start Date Expiration Date Visits Requested Visits Authorized [id number] Authorized Specialty Services Required 11/19/2024 11/19/2025 20 20 Encounter Details Date Type Department Care Team (Late st Contact Info) Description 11/23/2024 3:30 PM EST Treatment [facility] Occupational Therapy [address] [address] Dede Wadsworth, OTR/L Left shoulder [...] OTR/Charanjit - 11/23/2024 3:30 PM EST [facility] - Outpatient OCCUPATIONAL THERAPY DAILY TREATMENT NOTE [...] *No Product type* / Language: Pt. speaks Latvian as preferred language, however declines quality assurance tech Allergies: has No Known Allergies. Precautions: Consider [...] Info) Description 12/08/2024 3:00 PM EST Treatment [facility] Occupational Therapy [address] [place] [phone] Dede Wadsworth, OTR/L 12/10/2024 2:15 PM EST Office Visit [facility] Hematology Oncology [address] [place] [phone] Jeremías Best MD 271 [place] [phone] 12/10/2024 3:00 PM EST Treatment [facility] Occupational Therapy [address] [place] [phone] Dede Wadsworth, OTR/L 12/14/2024 3:30 PM EST Treatment [facility] Occupational Therapy [address] [place] [phone] Dede Wadsworth, OTR/L 12/17/2024 3:00 PM EST Treatment [facility] Occupational Therapy [address] [place] [phone] Dede Wadsworth, OTR/L 12/28/2024 3:30 PM EST Treatment [facility] Occupational Therapy [address] [place] [address] Dede Wadsworth OTR/L 01/07/2025 2:30 PM EST Appointment [facility] Infusion Center [address] 2nd [place] [address] 04/01/2025 1:00 PM EDT [facility] [place] [address] [place] [phone] Lamonte Bradford MD [address] [facility] [address] [place] [address] documented as of this encounter [...] weeks General Yes Ly Balderas, PT Note: Sports Internship Goals 1. Patient will be independent with [...] lymphedema documented in this encounter Care Teams Prover Relationship Specialty Start Date End Date Arleen Campbell FNP [address] [place] [phone] PCP - General Internal Medicine 08/11/21 documented as of this encounter
--- OUTSIDE RECORDS SUMMARY | 2024-12-08 11:33 | XMS_ITS | Encounter Summary ---
Author Organization [facility] Address [address] [place] [address] Care Team Providers Care Hand Turner Name Role Phone ShannanArleen Primary Care Provider +1- [phone] Reason for Visit * Consultation (Routine) - Authorized Specialty Diagnoses / Procedures Referred By Enrico sweet Referred To Contact Occupational Therapy Diagnoses Malignant neoplasm of upper-outer quadrant of left breast in female, estrogen receptor positive (CMS/HCC) Left shoulder pain, unspecified chronicity Lamonte Bradford MD [address] [address] [facility] Occupational Therapy [address] [address] Referral ID Status Reason Start Date Expiration Date Visits Requested Visits Authorized [id number] Authorized Specialty Services Required 11/19/2024 11/19/2025 20 20 Encounter Details Date Type Department Care Team (Late st Contact Info) Description 11/30/2024 3:30 PM EST Treatment [facility] Occupational Therapy [address] [address] Dede Wadsworth, OTR/L Left shoulder [...] Wadsworth, OTR/L - 11/30/2024 3:[address] [facility] - Outpatient OCCUPATIONAL THERAPY DAILY TREATMENT NOTE Date: 11/30/2024 Visit Number: 4 Patient Name: Abhijit Willis : 1980 Age: 44 y.o. Gender: female Diagnosis: No diagnosis found. Date of Onset: 11/19/2024 Referring Provider: Lamonte Bradford MD Insurance: [place] / Product Type: *No Product type* / Language: Pt. speaks Danish as preferred language, however declines lang interpreter Allergies: has No Known Allergies. Precautions: [...] Info) Description 12/08/2024 3:00 PM EST Treatment [facility] Occupational Therapy [address] [place] [phone] Dede Wadsworth, OTR/L 12/10/2024 2:15 PM EST Office Visit [facility] Hematology Oncology [address] [place] [phone] Jeremías Best MD [address] [place] [phone] 12/10/2024 3:00 PM EST Treatment [facility] Occupational Therapy [address] [place] [phone] Dede Wadsworth, OTR/L 12/14/2024 3:30 PM EST Treatment [facility] Occupational Therapy [address] [place] [phone] Dede Wadsworth, OTR/L 12/17/2024 3:00 PM EST Treatment [facility] Occupational Therapy [address] [place] [phone] Dede Wadsworth, OTR/L 12/28/2024 3:30 PM EST Treatment [facility] Occupational Therapy [address] [place] [phone] Dede Wadsworth, OTR/L 01/07/2025 2:30 PM EST Appointment [facility] Infusion Center [address] 2nd [place] [address] 04/01/2025 1:00 PM EDT [facility] [address] [place] [phone] Lamonte Bradford MD [address] [facility] [address] [place], [place] [phone] documented as of this encounter Goals Goal [...] weeks General Yes Ly Balderas, PT Note: Spinner Tender Goals 1. Patient will be independent with [...] Primary documented in this encounter Care Teams Hand Turner Relationship Specialty Start Date End Date Arleen Campbell FNP [address] [place] [phone] PCP - General Internal Medicine 08/11/21 documented as of this encounter
--- OUTSIDE RECORDS SUMMARY | 2024-12-08 11:33 | XMS_ITS | Encounter Summary ---
Author Organization [facility] Address [address] [place], [place] [address] Care Team Providers Care Channel Partners Name Role Phone Valeria Au NP Primary Care Provider +1- [phone] Encounter Details Date Type Department Care Team Description 09/17/2023 Social Work [facility] On[facility] [address] [place] [address] Todd Chang MSW Social History Tobacco Use [...] on filedocumented in this encounter Care Teams Channel Partners Relationship Specialty Start Date End Date Valeria Au NP [address] [place] [address] PCP - General Nurse Practitioner 07/31/23 documented as of this encounter
--- OUTSIDE RECORDS SUMMARY | 2024-12-08 11:33 | XMS_ITS | Encounter Summary ---
Author Organization [facility] Address [address] [place] [address] Care Team Providers Care Captain Waiter Name Role Phone Arleen Campbell Primary Care Provider +1- [phone] Reason for Visit * Consultation (Routine) - Authorized Specialty Diagnoses / Procedures Referred By Enrico sweet Referred To Contact Occupational Therapy Diagnoses Malignant neoplasm of upper-outer quadrant of left breast in female, estrogen receptor positive (CMS/HCC) Left shoulder pain, unspecified chronicity Lamonte Bradford MD [address] [address] [facility] Occupational Therapy [address] [address] Referral ID Status Reason Start Date Expiration Date Visits Requested Visits Authorized [id number] Authorized Specialty Services Required 11/19/2024 11/19/2025 20 20 Encounter Details Date Type Department Care Team (Late st Contact Info) Description 11/26/2024 3:30 PM EST Treatment [facility] Occupational Therapy [address] [address] Dede Wadsworth, OTR/L Left shoulder [...] Wadsworth, OTR/Charanjit - 11/26/2024 3:30 PM EST [facility] - Outpatient OCCUPATIONAL THERAPY DAILY TREATMENT NOTE Date: 11/26/2024 Visit Number: 3 Patient Name: Abhijit Willis : 1980 Age: 44 y.o. Gender: female Diagnosis: ICD-10-CM ICD-9-CM 1. Left shoulder pain, unspecified chronicity M25.512 719.41 2. Lymphatic edema I89.0 457.1 Date of Onset: 11/19/2024 Referring Provider: Lamonte Bradford MD Insurance: [place] / Product Type: *No Product type* / Language: Pt. 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 Precautions: Left [...] Description 12/08/2024 3:00 PM EST Treatment [facility] Occupational Therapy [address] [phone] Dede Wadsworth OTR/L 12/10/2024 2:15 PM EST Office Visit [facility] Hematology Oncology [address] [place] [address] Jeremías Best MD [address] [place] [address] 12/10/2024 3:00 PM EST Treatment [facility] Occupational Therapy [address] [phone] Dede Wadsworth OTR/L 12/14/2024 3:30 PM EST Treatment [facility] Occupational Therapy [address] [place] [phone] Dede Wadsworth OTR/L 12/17/2024 3:00 PM EST Treatment [facility] Occupational Therapy [address] [phone] Dede Wadsworth, OTR/L 12/28/2024 3:30 PM EST Treatment [facility] Occupational Therapy [address] [place] [address] Dede Wadsworth, OTR/L 01/07/2025 2:30 PM EST Appointment [facility] [address] [facility] [address] 2nd [place] [address] 04/01/2025 1:00 PM EDT Office [facility] [address] [place] [address] Lamonte Bradford MD 271 [facility] [address] [place], [place] [phone] documented as of this encounter Goals Goal [...] weeks General Yes Ly Balderas, PT Note: Custodial Goals 1. Patient will be independent with [...] lymphedema documented in this encounter Care Teams Captain Waiter Relationship Specialty Start Date End Date Arleen Campbell FNP [address] [place] [address] PCP - General Internal Medicine 08/11/21 documented as of this encounter
--- OUTSIDE RECORDS SUMMARY | 2024-12-08 11:33 | XMS_ITS | Clinical Summary ---
Author Organization [facility] Address [address] [place] [address] Care Team Providers Care Pre Sales Architect Name Role Phone Angelica Mcelroy MD Primary Care Provider [phone] Source Comments PLEASE NOTE, if this patient [...] (HCC-CM S) 01/09/2024 Overview (09/07/2024): Also following [facility] Breast surgery [id number] 06/2024 [facility] Oncology [id number]: Pt presented in 07/2023 with a left-sided stage IIA T1bN1 invasive ductal breast cancer, ER/AK-positive, HER2-negative. S/p lumpectomy and sentinel lymph node biopsy on 08/07/2023. She presented in 08/2023 with a synchronous left-sided stage I T1aN0 invasive ductal breast cancer, ER/AK- positive, HER2-negative, diagnosed in 08/2023. S/p radiation Currently undergoing chemotherapy I recommended adjuvant hormonal therapy with a GnRH agonist and an aromatase inhibitor x5 years. tolerating Zoladex/letrozole reasonably well. She developed mild left arm lymphedema. I referred her to the [facility]. Malignant neoplasm of upper- outer [...] 25.0-29.9) 11/17/2015 Hypothyroidism 02/03/2015 Overview (09/16/2024): Following [facility] every 3 months. 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 >> Endocrine at[facility] 10/03/16- Levothyroxine Dose changed to 25mcg qd in mid 06/2016 and she feels well. Cont same. F/u labs. Plan repeat thyroid USG in 06/2017 and f/u after U/S. Thyroid US (06/05/2017, [facility]): Enlargement of the thyroid gland, with [...] swelling 06/17/2017 05/05/2019 Overview (07/17/2017): USG at [facility] 06/10/17 show IMPRESSION: No solid or cystic mass definable in Rt breast area of concern.BI-RADS Category 1 PF, negative, clinical management of palpable abnormality recommended. No visible axillary lymph nodes and areas of indicated concern without concerning features. Immunization due 03/17/2015 05/05/2019 Encounters Date Type Department Care Team Description 09/07/2024 8:40 AM EST Office Visit [address] [phone] Angelica Mcelroy MD Postoperative hypothyroidism (Primary Dx); Invasive ductal carcinoma of left breast (HCC-CMS); Left arm pain 09/07/2024 Travel from Last 3 Months Immunizations Name Administration [...] 1980 Tobacco Cessation Counseling (#1) 01/24/2024 019 [id number] ( season) 2024 11/10/2021, 01/09/2021, 12/24/2020 Alcohol [...] REFERRAL SCANNED DOCUMENT 09/17/2024 3:00 AM EST TSH W/RFLX FREE T4 Routine 06/25/2024 3: [...] EST) 10/19/2024 3:00 AM EST Valeria Campbell FINGERNAIL SCULPTURER IMG MAMMO Final Res ult * IMAGING SCANNED DOCUMENT (10/19/2024 3:00 AM EST) 10/19/2024 3:00 AM EST Valeria Campbell FINGERNAIL SCULPTURER SCAN IMAGING Final Res ult * REFERRAL SCANNED DOCUMENT (09/17/2024 3:00 AM EST) 09/17/2024 3:00 AM EST Angelica Mcelroy MD SCAN REFERRAL Final Result * (ABNORMAL) TSH W/RFLX FREE T4 (06/25/2024 3:05 PM EDT) TSH W/REFLEX TO FT4 0.10(L) 0.40 - 4.50 mIU/L [facility] Comment: ?Reference Range ?> or = 20 Years ??0.40-4.50 ? Ranges ?First trimester ?0.26-2.66 ?Second trimester ?? 0.55-2.73 ?Third trimester ?0.43-2.91 Blood Blood / Unknown 06/25/2024 3 :05 PM EDT 06/25/2024 3:05 PM EDT Bre Hancock PA-C LAB - BLOOD DRAW Edited Resu lt - Final [facility] [address] [place] [address], [facility] [address] [place] [phone] * COMPREHENSIVE METABOLIC PANEL (06/25/2024 3:05 PM EDT) GLUCOSE 93 65 - 99 mg/dL [facility] Comment: ?Fasting reference interval UREA NITROGEN (BUN) 21 7 - 25 mg/dL [facility] CREATININE (blood) 0.71 0.50 - 0.99 mg/dL [facility] EGFR 107 > OR = 60 mL/min/1. 73m2 [facility] BUN/CREATININE RATIO SEE NOTE: [facility] Comment: ?? Not Reported: BUN and Creatinine are within ?? reference range. ? SODIUM 141 135 - 146 mmol/L [facility] POTASSIUM 4.3 3.5 - 5.3 mmol/L [facility] CHLORIDE 103 98 - 110 mmol/L [facility] CARBON DIOXIDE 30 20 - 32 mmol/L [facility] CALCIUM 9.8 8.6 - 10.2 mg/dL [facility] PROTEIN, TOTAL 6.7 6.1 - 8.1 g/dL [facility] ALBUMIN 4.1 3.6 - 5.1 g/dL [facility] GLOBULIN 2.6 1.9 - 3.7 g/dL (calc) [facility] ALBUMIN/GLOBULI N RATIO 1.6 1.0 - 2.5 (calc) [facility] [place] [email or web address] BILIRUBIN, TOTAL 0.5 0.2 - 1.2 mg/dL [facility] ALKALINE PHOSPHATASE 58 31 - 125 U/L [facility] AST 18 10 - 30 U/L [facility] [place] [email or web address] ALT 19 6 - 29 U/L [facility] Blood Blood / Unknown 06/25/2024 3 :05 PM EDT 06/25/2024 3:05 PM EDT us Bre Hancock PA-C LAB - BLOOD DRAW Final Resul t [facility] [address] [address], [facility] [address] [address] * LIPID PANEL (01/30/2024 3:18 PM EDT) CHOLESTEROL, TOTAL 171 <200 mg/dL [facility] HDL CHOLESTEROL 54 > OR = 50 mg/dL [facility] TRIGLYCERIDES 87 <150 mg/dL [facility] LDL-CHOLESTEROL 99 99 mg/dL (calc) [facility] Comment: Reference range: <100 Desirable range <100 mg/dL for primary prevention; ?? <70 mg/dL for patients with CHD or diabetic patients with > or = 2 CHD risk factors. LDL-C is now calculated using the Eduard-Fred calculation, which is a validated novel method providing better accuracy than the Friedewald equation in the estimation of LDL-C. Eduard BARBA et al. CARMITA. 2013;310(19): 3636-7205 (http://education.SoCAT/faq/EPB713) CHOL/HDLC RATIO 3.2 <5.0 (calc) [facility] NON-HDL CHOLESTEROL 117 <130 mg/dL (calc) [facility] Comment: For patients with diabetes plus 1 major ASCVD risk factor, treating to a non-HDL-C goal of <100 mg/dL (LDL-C of <70 mg/dL) is considered a therapeutic option. Blood Blood / Unknown 01/30/2024 3 :18 PM EDT 01/30/2024 3:19 PM EDT us Bre Hancock PA-C LAB - BLOOD DRAW Final Resul t Performing Organization Address [facility]/ZIP Co de Phone Number [facility] [address] [address], [facility] [place] [email or web address] [address] [place] [phone] * THIN PREP PAP W/RFLX HPV RNA E6/E7 (Q) (01/30/2022 2:31 PM EDT) CLINICAL INFORMATION See Note [facility] Comment:None given LMP See Note [facility] Comment:[id number] PREV. PAP [facility] PREV. BX See Note [facility] Comment:NONE GIVEN SOURCE See Note [facility] Comment:Cervix, Endocervix STATEMENT OF ADEQUACY See Note [facility] Comment: Satisfactory for evaluation. Endocervical/transformation zone component absent. INTERPRETATION/RESU LT See Note [facility] Comment:Negative for intraep ithelial lesion or malignancy. BOARD SETTER See Note [facility]ian[facility] Plan Comment: CURT, CT(ASCP) CT screening location: [address] ??[address] COMMENT [facility] CYTOLOGY Cervix uteri structure / Unknown 01/30/2022 2:31 PM EDT 01/31/2022 5:54 AM EDT Narrative [facility] - 02/01/2022 2:24 PM EDT EXPLANATORY NOTE: [...] along with historic and current clinical information. us Bre Hancock PA-C LAB - NO BLOOD DRAW Final Re sult Performing Organization Address [facility]/ZIP Co de Phone Number [facility] [address] [address], [employer] [address] [address] * (ABNORMAL) HEPATITIS A,B,C PANEL (09/19/2020 11:49 AM EST) HEPATITIS B SURFACE ANTIBODY POSITIVE(A) NEGATIVE [facility] HEPATITIS B SURFACE ANTIGEN NEGATIVE NEGATIVE [facility] Comment: Over the counter supplements containing high doses of biotin may interfere with this assay. ??If interference is suspected, patients shoud be retested after refraining from biotin supplements for 72 hours. HEPATITIS C VIRUS DIAGNOSTIC NEGATIVE NEGATIVE [facility] HEPATITIS B CORE ANTIBODY NEGATIVE NEGATIVE [facility] HEPATITIS A ANTIBODY TOTAL POSITIVE(A) NEGATIVE [facility] Comment: Over the counter supplements containing high doses of biotin may interfere with this assay. ??If interference is suspected, patients shoud be retested after refraining from biotin supplements for 72 hours. Blood Blood / Unknown 09/19/2020 1 1:49 AM EST 09/19/2020 5:00 PM EST Narrative [facility] - 09/19/2020 7:09 PM EST [facility] [employer] [address] Sanitary Landfill Operator - Tenisha Negrete MD PT ID [id number] ORD# [id number] Liana Ma [facility] LAB - BLOOD DRAW Edited [place] [address], * HIV-1 & HIV-2 ANTIBODIES (09/19/2020 11:49 AM EST) HIV 1 AND 2 ANTIBODY SCREEN NEGATIVE NEGATIVE [facility] Comment: This assay is a 4th generation [...] AM EST 09/19/2020 5:00 PM EST Narrative [facility] - 09/19/2020 7:38 PM EST [facility] [employer], a member of [address] [address] Sanitary Landfill Operator - Tenisha Negrete MD PT ID [id number] ORD# [id number] Liana Sudhirsammy FINGERNAIL SCULPTURER LAB - BLOOD DRAW Edited Res ult - Final [facility] [address], from Last 3 Months or Most Recently Relevant to Health Maintenance Insurance [id number] Care Teams Pre Sales Architect Relationship Specialty Start Date End Date Angelica Mcelroy MD [address] [place] [address] PCP - General Family Medicine, Physician 07/01/24
--- OUTSIDE RECORDS SUMMARY | 2024-12-08 11:33 | XMS_ITS | Encounter Summary ---
Author Organization [facility] Address [address] [place] [address] Care Team Providers Care Ash Handler Name Role Phone Arleen Campbell DARYL Primary Care Provider +1- [phone] Encounter Details Date Type Department Care Team (Late st Contact Info) Description 11/19/2024 Plan of Care Documentation [facility] Occupational Therapy [address] [place] [address] Social History Tobacco Use Types Packs/Day [...] from the original note were not included. 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 Prior Level of Function: [...] by Dede Wadsworth OTR/Charanjit [facility] [address] [place] [address] Dept: [phone] Dept PATIENT NAME: Abhijit Willis : 1980 [...] 3:00 PM EST Treatment [facility] [address] [place] [address] Dede Wadsworth, OTR/L 12/10/2024 2:15 PM EST Office Visit [facility] Hematology Oncology [address] [place] [phone] Jeremías Best MD [address] [place] [address] 12/10/2024 3:00 PM EST Treatment [facility] [address] [place] [phone] Dede Wadsworth, OTR/L 12/14/2024 3:30 PM EST Treatment [facility] [address] [place] [phone] Dede Wadsworth, OTR/L 12/17/2024 3:00 PM EST Treatment [facility] [address] [place] [phone] Dede Wadsworth, OTR/L 12/28/2024 3:30 PM EST Treatment [facility] [address] [place] [phone] Dede Wadsworth, OTR/L 01/07/2025 2:30 PM EST Appointment [facility] Infusion Center [address] [facility] 2nd [place] [phone] 04/01/2025 1:00 PM EDT Office Visit [facility] [place] [address] [facility] [address] [place] [phone] Lamonte Bradford MD [address] [facility] [address] [place] [address] documented as of this encounter Goals Goal [...] weeks General Yes Ly Balderas, PT Note: Transit Operations Supervisor Goals 1. Patient will be independent with [...] on filedocumented in this encounter Care Teams Ash Handler Relationship Specialty Start Date End Date Arleen Campbell FNP [address] [place] [phone] PCP - General Internal Medicine 08/11/21 documented as of this encounter
--- OUTSIDE RECORDS SUMMARY | 2024-12-08 11:33 | XMS_ITS | Clinical Summary ---
Author Organization [facility] Address [address] [place] [address] Care Team Providers Care Rotary Dump Operator Name Role Phone Valeria Au NP Primary Care Provider +1- [phone] Allergies No known active allergies Medications Medication [...] age to complete this topic Care Teams Rotary Dump Operator Relationship Specialty Start Date End Date Valeria Au NP [address] [place] [address] PCP - General Nurse Practitioner 07/31/23
--- OUTSIDE RECORDS SUMMARY | 2024-12-08 11:33 | XMS_ITS ---
Author Organization [facility] Address [address] [place] [address] Phone Care Team Providers Care Convertible Power Shovel Operator Name Role Phone Arleen Campbell SHOOK MACHINE OPERATOR Primary Care Provider +1- [phone] Active Problems Problem Noted Date Diagnosed Date [...] treatments are documented for this patient in [facility]. Treatments may have been administered in another system.
--- OUTSIDE RECORDS SUMMARY | 2024-12-08 11:33 | XMS_ITS | Clinical Summary ---
Author Organization [facility] Address [address] [place] [address] Phone Care Team Providers Care Director Of Hotel Name Role Phone Arleen Campbell Primary Care Provider +1- [phone] Allergies No known active allergies Medications Medication [...] Team Description 11/30/2024 3:30 PM EST Treatment [facility] Occupational Therapy [address] [place] [phone] Gijzen, Dede P, OTR/L Left shoulder pain, unspecified chronicity (Primary Dx) 11/26/2024 3:30 PM EST Treatment [facility] Occupational [address] [phone] Gijzen, Dede P, OTR/L Left shoulder pain, unspecified chronicity (Primary Dx); Lymphatic edema 11/23/2024 3:30 PM EST Treatment [address] [phone] Perrijkalli Dede P, OTR/L Left shoulder pain, unspecified chronicity (Primary Dx); Lymphatic edema 11/19/2024 1:00 PM EST Evaluation [address] [phone] Perrijzen, Dede P, OTR/L Left shoulder pain, unspecified chronicity (Primary Dx); Lymphatic edema 11/19/2024 Plan of Care Documentation [facility] Occupational Therapy [address] [place] [phone] 10/20/2024 5:15 PM EST Treatment [facility] [address] [phone] David Donnelly PTA Left arm pain (Primary Dx) 10/19/2024 12:48 PM EST - 10/19/2024 11:59 PM EST Hospital Encounter [facility] [address] [place] [phone] Malignant neoplasm of upper-outer quadrant of left breast in female, estrogen receptor positive (CMS/HCC) Discharge Disposition: Home or Self Care 10/14/2024 4:30 PM EST Evaluation [facility] [address] [phone] Ly Balderas, PT Left arm pain (Primary Dx) 10/14/2024 Plan of Care Documentation [facility] [address] [phone] 10/09/2024 2:18 PM EST - 10/09/2024 11:59 PM EST Hospital Encounter [facility] [address] [facility] [address] [place] [address] Malignant neoplasm of upper-outer quadrant of left breast in female, estrogen receptor positive (CMS/HCC) (Primary Dx) Discharge Disposition: Home or Self Care 09/29/2024 2:40 PM EST Office Visit [facility] [address] [facility] [address] [place] [address] Lamonte Bradford MD Malignant neoplasm of upper-outer quadrant of left breast in female, estrogen receptor positive (CMS/HCC) (Primary Dx) 09/11/2024 Telephone [facility] Hematology Oncology [address] [place] [phone] Jeremías Best MD Appointment 09/10/2024 2:00 PM EST Office Visit [facility] Hematology Oncology [address] [place] [phone] Jeremías Best MD Malignant neoplasm of upper-outer [...] Info) Description 12/08/2024 3:00 PM EST Treatment [facility] Occupational Therapy [address] [place] [phone] Dede Wadsworth P, OTR/L 12/10/2024 2:15 PM EST Office Visit [facility] Hematology Oncology [address] [place] [phone] Jeremías Best MD [address] [place] [address] 12/10/2024 3:00 PM EST Treatment [facility] Occupational Therapy [address] [place] [phone] Dede Wadsworth P, OTR/L 12/14/2024 3:30 PM EST Treatment [facility] Occupational Therapy [address] [place] [phone] Dede Wadsworth P, OTR/L 12/17/2024 3:00 PM EST Treatment [facility] Occupational Therapy [address] [place] [phone] Dede Wadsworth P, OTR/L 12/28/2024 3:30 PM EST Treatment [facility] Occupational Therapy [address] [place] [phone] Dede Wadswroth, OTR/L 01/07/2025 2:30 PM EST Appointment [facility] [address] [facility] 2[address] [place] [address] 04/01/2025 1:00 PM EDT Office Visit Breast [facility] [address] [address] [place] [address] Lamonte Bradford MD [address] [facility] [address] [place] [address] Health Maintenance Due Date Last Done Comments [...] weeks General Yes Ly Balderas, PT Note: Building Services Engineer Goals 1. Patient will be independent with [...] and MLO projections. Computer aided detection with USDS 3D 3.1 was employed. TISSUE DENSITY: b. [...] screening mammogram BILATERAL in 1 year. G0202, [id number], [id number] -------- FINAL REPORT -------- Dictated By: ANDREA CROWDER Dictated Date: 10/19/2024 14:14 ET Assigned Physician: ANDREA CROWDER Reviewed and Electronically Signed By: ANDREA CROWDER Signed Date: 10/19/2024 14:31 ET Workstation ID: [id number] Transcribed By: Self Edit Transcribed Date: 10/19/2024 [...] screening mammogram BILATERAL in 1 year. G0202, [id number], [id number] -------- FINAL REPORT -------- Dictated By: ANDREA CROWDER Dictated Date: 10/19/2024 14:14 ET Assigned Physician: ANDREA CROWDER Reviewed and Electronically Signed By: ANDREA CROWDER Signed Date: 10/19/2024 14:31 ET Workstation ID: [id number] Transcribed By: Self Edit Transcribed Date: 10/19/2024 14:14 ET Narrative 10/19/2024 2:31 PM EST EXAM: MG MAMMO DIGITAL DIAGNOSTIC W PAPO BILAT EXAM DATE AND TIME: 10/19/2024 1:09 PM HISTORY: ??Excisional biopsy of the left breast for invasive ductal carcinoma COMPARISON: ??08/05/2023 through 07/02/2023 TECHNIQUE: Bilateral digital breast tomosynthesis was performed in the CC and MLO projections. Computer aided detection with USDS 3D 3.1 was employed. TISSUE DENSITY: b. [...] (01/30/2022) Pap smear no interperation Historical Provider [facility] * HIV Screening (09/19/2020) HIV Screening abstract Historical Provider [facility] * Hepatitis C Screening (09/19/2020) Hepatitis C Screening abstract Historical Provider [facility] from Last 3 Months or Most Recently Relevant to Health Maintenance Care Teams Director Of Hotel Relationship Specialty Start Date End Date Arleen Campbell FNP [address] [place] [phone] PCP - General Internal Medicine 08/11/21
--- OUTSIDE RECORDS SUMMARY | 2024-12-08 11:33 | XMS_ITS | Encounter Summary ---
Author Organization [facility] Address [address] [place] [address] Care Team Providers Care Wildlife Removal Specialist Name Role Phone ShannanArleen Primary Care Provider +1- [phone] Reason for Visit * Consultation (Routine) - Authorized Specialty Diagnoses / Procedures Referred By Enrico sweet Referred To Contact Occupational Therapy Diagnoses Malignant neoplasm of upper-outer quadrant of left breast in female, estrogen receptor positive (CMS/HCC) Left shoulder pain, unspecified chronicity Lamonte Bradford MD [address] [address] [facility] Occupational Therapy [address] [phone] Referral ID Status Reason Start Date Expiration Date Visits Requested Visits Authorized [id number] Authorized Specialty Services Required 11/19/2024 11/19/2025 20 20 Encounter Details Date Type Department Care Team (Late st Contact Info) Description 11/19/2024 1:00 PM EST Evaluation [facility] Occupational Therapy [address] [phone] Dede Wadsworth, OTR/L Left shoulder [...] from the original note were not included. [facility] - Outpatient OCCUPATIONAL THERAPY EVALUATION Date: 11/19/2024 Visit Number: 1 Patient Name: Abhijit Willis : 1980 Age: 44 y.o. Gender: female Diagnosis: No diagnosis found. Date of Onset: 11/19/2024 Referring Provider: No ref. provider found Insurance: [place] / [place] / Product Type: *No Product type* / Language: Pt. 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 Prior Level of [...] completed by JOAQUINA Purcell/Charanjit [facility] [address] [place] [phone] Dept: [phone] Dept PATIENT NAME: Abhijit Willis : 1980 [...] Info) Description 12/08/2024 3:00 PM EST Treatment [facility] Occupational Therapy [address] [place] [phone] Dede Wadsworth OTR/L 12/10/2024 2:15 PM EST Office Visit [facility] Hematology Oncology [address] [place] [phone] Jeremías Best MD [address] [place] [phone] 12/10/2024 3:00 PM EST Treatment [facility] Occupational Therapy [address] [phone] Dede Wadsworth OTR/L 12/14/2024 3:30 PM EST Treatment [facility] [address] [place] [phone] Dede Wadsworth OTR/L 12/17/2024 3:00 PM EST Treatment [facility] Occupational Therapy [address] [place] [phone] Dede Wadsworth, OTR/L 12/28/2024 3:30 PM EST Treatment [facility] Occupational Therapy [address] [place] [phone] Dede Wadsworth, OTR/L 01/07/2025 2:30 PM EST Appointment [facility] [address] [place] [phone] 04/01/2025 1:00 PM EDT Office Visit [facility] [place] [facility] [address] [place] [phone] Lamonte Bradford MD [address] [facility] [address] [place] [address] documented as of this encounter Goals Goal [...] weeks General Yes Ly Balderas, PT Note: Cream Cheese Maker Goals 1. Patient will be independent with [...] lymphedema documented in this encounter Care Teams Wildlife Removal Specialist Relationship Specialty Start Date End Date Arleen Campbell FNP [facility] [place] [phone] PCP - General Internal Medicine 08/11/21 documented as of this encounter
--- OUTSIDE RECORDS SUMMARY | 2024-12-08 11:33 | XMS_ITS ---
Author Organization [facility] Address [address] [place] [phone] Care Team Providers Care Dredge Master Name Role Phone Valeria Au NP Primary Care Provider +1- [phone] Active Problems Problem Noted Date Diagnosed Date Malignant neoplasm of upper- outer quadrant of left breast in female, estrogen receptor positive 08/24/2023 Current Oncology Plans [facility] GOSERELIN 10.8MG (ZOLADEX)* Plan Start Date:01/31/2024 Plan Provider:Jeremías Best MD Linked Problems Malignant neoplasm of upper- outer quadrant of left breast in female, estrogen receptor positive (HCC) Treatment Medications goserelin (ZOLADEX) Past Plans ONCOLOGY TREATMENT Plan Name Start Date Discontinue Date Treatment Medications Discontinue Reason Plan Provider Cycles [facility] BCN OP TC - DOCETAXEL + CYCLOPHOSPHAMIDE [id number] (3 HRS) 202201/07/2024 albuterol (PROVENTIL)cycloPHOSph amide (CYTOXAN) chemo infusiondexamethasone (DECADRON)dexamethason e sod phosphate PF (DECADRON)diphenhydrAM INE (BENADRYL)DOCEtaxel (TAXOTERE) infusionEPINEPHrinefam otidine (PF) (PEPCID)hydrocortisone (SOLU-CORTEF) IVmeperidine (DEMEROL) 25 MG/MLpalonosetron (ALOXI)Saline Flush 0.9 %sodium chloride (NS) 0.9 %sodium chloride 0.9% bolus (NS) Therapy Complete Jeremías Best MD 4 of 4 cycles started Radiation Treatments * No radiation treatments are documented for this patient in [facility]. Treatments may have been administered in another system.
[2024-12-08 11:47] LABS: Creatinine, mg/dL 94.54
[2024-12-08 13:44] LABS: Creatinine, 24Hr Urine 0.5 G/Day (1.0-2.0); Total Volume 24 Hour Urine 575 mL
[2024-12-10 18:23] LABS: Calcium, 24 Hr Urine 142 mg/24 h; Calcium/Creatinine Ratio 268 mg/g creat (30-275); Creatinine 24Hr Urine 0.53 g/24 h (0.50-2.15)
== END 2024-12-08 10:41 | disposition home or self-care (01) ==
LOC: HO.LNP 10:40
PROVIDERS: Visit Provider Student in an Organized Health Care Education/Training Program
DX: E05.20 Thyrotoxicosis with toxic multinodular goiter without thyrotoxic crisis or storm (principal); E89.0 Postprocedural hypothyroidism; Z79.811 Long term (current) use of aromatase inhibitors; M85.80 Other specified disorders of bone density and structure, unspecified site
CPT/HCPCS: 82340; 82570

== ENCOUNTER 2024-12-14 14:23 | Outpatient (AMB) | payer MEDICAID, SELFPAY ==
--- NOTE | 2024-12-14 14:30 | MHC.OFFVIS ---
Vital Signs 12/14/24 14:31 Height 5 ft 2 in Weight 131 lb 9.855 oz BMI 24.1 BP 98/58 L Blood Pressure Location Rt brachial Position Sitting Pulse 87 Pulse Source Pulse Oximeter Pulse Oximetry (%) 98 Oxygen Delivery Method Room Air Intake Visit Reasons: f/u MNG/Confirmed Intake Note: Check glucose and medication check Diaphragm Builder Required: No Accompanied by: Mother Allergies No Known Allergies Allergy (Verified 12/14/24 14:37) Medication List - Last Reconciled 12/14/24 by Teresa Cristina MD acetaminophen 1,000 mg PO TID PRN cholecalciferol (vitamin D3) 50 mcg PO DAILY ferrous sulfate 325 mg PO Q OTHER DAY letrozole 2.5 mg PO DAILY levothyroxine 75 mcg PO DAILY mecobalamin (vitamin B12) 2,500 mcg PO HPI Comments Details: 44 YO F coming in today for follow up of postsurgical hypothyroidism after total thyroidectomy on 09/02/[address] Vince Rosario at [facility] for toxic MNG . And osteopenia with aromatase inhibitor therapy for breast cancer. History of toxic multinodular goiter Postsurgical hypothyroidism She has a history of hyperthyroidism since 2008 likely due to diffuse toxic goiter, apparently diagnosed when she lived in [place], no details available. Per patient she used to be on antithyroid medication for years (? PTU), then [place] and was started on methimazole but developed some side effects and stopped in September 2022. Labs from February 2023 showed suppressed TSH 0.06 with normal free T4 of 0.93. Subsequently labs in June 2023 again showed suppressed TSH of 0.08, free T4 0.96, free T3 3.1 (off methimazole). Thyroid ultrasound 03/04/2023 showed diffusely enlarged hypervascular thyroid gland containing multiple around 1 cm or less nodules including dominant 1.2 cm TR 2 left midpole nodule, not meeting criteria for biopsy. She was having some degree of compressive symptoms with dysphagia to solids, neck pressure, occasional choking. She was subsequently referred to Endocrine surgery and saw Dr. Vince Rosario at [facility] on 09/25/2023 for evaluation of toxic multinodular goiter for total thyroidectomy. She was also in in the interim diagnosed with breast cancer status post left breast lumpectomy August 2023 status post chemotherapy completed November 2023 followed by radiation therapy finished January 2024. Sees Dr. Macrina Best at [facility] and Dr Addison Bradford for her oncology care. Hence total thyroidectomy was subsequently delayed. Status post total thyroidectomy 09/02/[address] Vince Rosario at [facility] in [facility], along with right inferior parathyroidectomy with reimplantation of the parathyroid in the left SCM. 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 Currenlty taking levothyroxine 88 mcg daily , good adherence , takes between 9 AM to 10 AM and waits an hour between eating or drinking coffee. Fatigue improved since surgery. Palpitations improved. Bowel movements regular. Lost 70 lbs after gastric sleeve surgery in [place] in March 2023. Continues to lose weight. Hasnt had period for one year since chemo, she is on depot progesterone every 3 months Patient denies any difficulty swallowing, pain on swallowing or voice changes or difficulty breathing. Denies having ever used lithium, amiodarone or biotin supplements. Patient denies any family history of thyroid cancer or thyroid disease. Labs from 10/21/2024 showed TSH still low at 0.08, free T4 1.30, we had asked her to repeat another set of labs in 6 weeks to see if her TSH is lagging behind and improves without any changes to levothyroxine. However no set of repeat labs done. Reports fatigue , tirendess , plapitations , and gained weight. Interval history Labs from 12/02/2024 showed TSH was still low at 0.06, free T4 normal, levothyroxine was reduced from 88 mcg daily to 75 mcg daily. Osteopenia Bone health on aromatase inhibitor For history of breast cancer, starting letrozole February 2024 with plan for 5 years Denies any fracture history, denies history of bone density evaluation Vitamin D 2000 units daily, taking calcium 2 pills daily not sure about the dose Milk: daily one bottle every day (a protein shake), a cup of milk wiht oats daily She vapes , has prior history of tobacco use Denies any alcohol use Has had cortisone shots in her hip a few years ago, 2 injections, denies any long-term glucocorticoid therapy Has had chemotherapy for left breast cancer in 01/2024 No history of antiseizure medications No PPI use. Does have history of hyperthyroidism due to toxic multinodular goiter as described above status post total thyroidectomy August 2024 now with postsurgical hypothyroid Mother has history of hip fracture On progesterone shot every 3 months DEXA scan 11/10/2024 showed T-score of-1.6 and Z-score of -1.4 of the lumbar spine, T-score of-0.7 at the left total hip and T-score of-1.1 at the left femoral neck. Lumbar spine and femoral neck consistent with osteopenia. While patient is young so we have to go by Z scores, she is meeting criteria for treatment based on the fact that her T-score is less than -1.5, she has a history of smoking cigarettes, and parent has a history of fragility fracture. 10/30/2024 CTX elevated at 1019. Normal calcium, vitamin-D of 50.8, normal kidney function, Interval history Labs from November 2024 showed Secondary workup for osteoporosis unremarkable with normal 24 hour urine calcium levels, normal SPEP. Normal vitamin-D and calcium and kidney function. Currently taking Vitamin D 1000 units x2 daily cakcium 600 mg daily plus 400 units of D plus 200 units of D in mulitivitamin Physical exam General: sitting comfortably in no acute distress HEENT: normocephalic/atraumatic,moist oral mucosa Neck: supple, symmetrical, well healing surgical scar , no dorsocervical or supraclavicular fat pads Cardiac: normal heart sounds Pulm: normal breath sounds B/L, no added breath sounds Abd: not distended, no tenderness Extremities: no edema, no signs of myxedema Laboratory Tests 02/08/23 06/07/23 13:33 13:15 TSH 0.06 L 0.08 L Free T4 0.93 0.96 Free T3 3.3 3.1 Laboratory Tests 10/21/24 10/30/24 11:27 08:38 Sodium 142 Potassium 3.8 Creatinine 0.72 Estimated GFR > 60 Calcium 9.1 9.6 Alk Phos Bone Specific 12.9 Albumin 4.1 4.2 Collgn I C-Telopeptide 1019 H 25-OH Vitamin D Total 50.8 TSH 0.08 L Free T4 1.30 Laboratory Tests 10/30/24 12/01/24 12/08/24 08:38 14:05 09:30 Creatinine 0.72 Estimated GFR > 60 Calcium 9.7 Total Protein (PEP) 7.0 Albumin 4.2 Albumin (PEP) 4.3 Vhiob-2-Ujenfvolo 0.3 Bckfa-3-Twdtfqtex 0.7 Mqal-1-Fanypzdh 0.4 Evks-2-Ppeqnrxc 0.4 Gamma Globulins 1.0 Collgn I C-Telopeptide 1019 H TSH 0.06 L Free T4 1.24 Total T3 103 Ur 24 Hour Volume 575 Ur Creatinine mg/dL 94.54 Ur Creatinine 24 Hour 0.5 L Ur Calcium 24 Hr 142 Calcium/Creat 24 Hr 268 EXAMINATION: Dual-Energy X-ray Absorptiometry - Bone Density Study 11/10/24 HISTORY: Estrogen deficiency TECHNIQUE: Pitchbrite Dual energy absorptiometry (DEXA) of the lumbar spine, total left hip, and femoral neck was performed. COMPARISON: There are no prior studies for comparison. FINDINGS: The bone mineral density of the lumbar spine is 0.986 with a T-score of -1.6, and a Z-score of -1.4. The bone mineral density of the left total hip is 0.921 with a T-score of -0.7, and a Z-score of 0.2. The bone mineral density of the left femoral neck is 0.880 with a T-score of -1.1, and a Z-score of 0.4. FRACTURE RISK: The FRAX index suggests a risk of major osteoporotic fracture of 2.8%, and of hip fracture 0.4%. MM/XR DEXA axial skeleton IMPRESSION: Based on bone mineral density, and according to World Health Organization (WHO) criteria, the diagnosis is consistent with osteopenia. US THYROID 03/04/23 CLINICAL INFORMATION: Thyrotoxicosis with toxic multinodular goiter without thyrotoxic crisis or storm. COMPARISON: None available. TECHNIQUE: Linear transducer grayscale and color Doppler examination with attention to the region of the thyroid. FINDINGS: SIZE: Measurements of the thyroid lobes and nodules are given in sagittal, anteroposterior and transverse dimensions respectively. Right Thyroid Lobe: 5.8 x 1.8 x 2.4 cm, volume 13.1 mL. Parenchyma: The gland echotexture is heterogeneous. Thyroid vascularity is increased. Left Thyroid Lobe: 5.8 x 2.1 x 2.7 cm, volume 17.2 mL. Parenchyma: The gland echotexture is heterogeneous. Thyroid vascularity is increased. Isthmus: 0.7 cm in maximum AP dimension. Estimated total number of nodules greater than or equal to 1 cm: 0. [employer] nodules are described as follows: 1. Location: Right inferior. Size: 0.7 x 0.5 x 0.5 cm, volume 0.1 mL. Nodule characteristics: Composition: Mixed cystic and solid (1). Echogenicity: Hypoechoic (2). Shape: Not taller than wide (0). Margins: Smooth (0). Echogenic Foci: Comet-tail artifacts (0). ACR TI-RADS total points: 3 ACR TI-RADS category: 3 2. Location: Left mid. Size: 0.9 x 0.5 x 0.6 cm, volume 0.2 mL. Nodule characteristics: Composition: Solid/almost completely solid (2). Echogenicity: Isoechoic (1). Shape: Not taller than wide (0). Margins: Ill-defined (0). Echogenic Foci: None (0). ACR TI-RADS total points: 3 ACR TI-RADS category: 3 3. Location: Left mid. Size: 1.2 x 0.7 x 1.0 cm, volume 0.4 mL. Nodule characteristics: Composition: Mixed cystic and solid (1). Echogenicity: Isoechoic (1). Shape: Not taller than wide (0). Margins: Ill-defined (0). Echogenic Foci: None (0). ACR TI-RADS total points: 2 ACR TI-RADS category: 2 NODES: No lymphadenopathy is seen in the tissue surrounding the thyroid gland. US/US thyroid IMPRESSION: Subcentimeter TR 3 thyroid nodules and a 1.2 cm TR 2 thyroid nodule which do not meet criteria for follow-up. Heterogeneous hypervascular thyroid which can be seen in the setting of thyroiditis. [facility] Medical History (Updated 12/01/24 @ 13:39 by Teresa Cristina MD) Osteopenia Hypothyroidism Vitamin D deficiency Aromatase inhibitor use Toxic multinodul goiter Surgical History History of thyroid surgery Hx of rhinoplasty Hx of appendectomy Family History Mother Heart problem High cholesterol Arthritis History of hypertension Father Arthritis High cholesterol History of hypertension Social History Household Members: Family Household Members Other:: parents, brother Alcohol intake: current Alcohol intake frequency: does not drink Tobacco use type: Cigarette e-Cigarette/Vaping Use: Currently Using Physical Exam Vital Signs: Last Vital Signs Pulse 87 12/14/24 14:31 BP 98/58 L 12/14/24 14:31 Pulse Ox 98 12/14/24 14:31 Oxygen Delivery Method Room Air 12/14/24 14:31 BMI result Body Mass Index 24.1 Assessment & Plan Assessment & Plan (1) Aromatase inhibitor use: Code(s): Z79.811 - salvage determiner (current) use of aromatase inhibitors Category: Medical Plan: 44-year-old female with a history significant for left breast cancer status post lumpectomy August 2023 status post chemotherapy completed November 2023 followed by radiation therapy finished January 2024. Sees Dr. Macrina Best at [facility] and Dr Addison Bradford for her oncology care. Was started on letrozole 2.5 mg daily in February 2024, with plan for 5 years of therapy. No history of fractures, has not had a bone density scan. I discussed with the patient that Aromatase inhibitors are associated with bone loss and fracture and women who will be initiating aromatase inhibitors require fracture risk assessment. High-risk factors are history of cigarette smoking, history of hyperthyroidism,. She vapes now though and has quit cigarette smoking. Otherwise no other risk factors. She is taking adequate amounts of vitamin-D 2000 units daily, also on a good amount of calcium intake daily. DEXA scan 11/10/2024 showed T-score of-1.6 and Z-score of -1.4 of the lumbar spine, T-score of-0.7 at the left total hip and T-score of-1.1 at the left femoral neck. Lumbar spine and femoral neck consistent with osteopenia. While patient is young so we have to go by Z scores, she is meeting criteria for treatment based on the fact that her T-score is less than -1.5, she has a history of smoking cigarettes, and parent has a history of fragility fracture. 10/30/2024 CTX elevated at 1019. Normal calcium, vitamin-D of 50.8, normal kidney function, Labs from November 2024 showed Secondary workup for osteoporosis unremarkable with normal 24 hour urine calcium levels, normal SPEP. Normal vitamin-D and calcium and kidney function. I discussed with the patient that given high bone resorption and plan to be on letrozole up until 2028, we recommend starting bisphosphonate with either Fosamax or Reclast. Given very borderline osteoporosis, Fosamax would be a better option for her. Discussed common side effects of heartburn, acid reflux. She does not have any history of acid reflux currently. Not using any PPI. Discussed rare side effects of atypical femur fracture and osteonecrosis of the jaw. Plan would be to continue on Fosamax up until she stays on the letrozole. We will have her repeat bone resorption markers including be BSAP and CTX in 6 months to see if she has any improvement. Next bone density would be due November 2026. Plan: -start Fosamax 70 mg weekly -do blood work in 6 months prior to follow up -next bone density would be due November 2026 -continue vitamin-D 2000 units daily -maintain 2080-4137 mg of calcium intake through diet/supplement daily -weight-bearing exercise advised (2) Osteopenia: Code(s): M85.80 - Other specified disorders of bone density and structure, unspecified site Category: Medical Qualifiers: Osteopenia location: multiple sites Qualified Code(s): M85.89 - Other specified disorders of bone density and structure, multiple sites Plan: See above (3) Toxic multinodul goiter: Code(s): E05.20 - Thyrotoxicosis with toxic multinodular goiter without thyrotoxic crisis or storm Category: Medical Plan: 44-year-old female with past medical history significant for toxic multinodular goiter status post total thyroidectomy 09/02/[address] Vince Rosario at [facility], now coming in for postsurgical hypothyroidism. Labs from 12/02/2024 showed TSH was still low at 0.06, free T4 normal, levothyroxine was reduced from 88 mcg daily to 75 mcg daily. Plan: -continue levothyroxine 75 mcg daily -do TSH, free T4 mid December 2024, we will call with results (4) Hypothyroidism: Code(s): E03.9 - Hypothyroidism, unspecified Category: Medical Qualifiers: Hypothyroidism type: postoperative Qualified Code(s): E89.0 - Postprocedural hypothyroidism Plan: See above Plan I spent 30 minutes in reviewing the record, seeing the patient and documenting in the medical record. Orders: Orders Collagen Type I C-Telopeptide 6 Months M85.89 - Other specified disorders of bone density and structure, multiple sites, Z79.811 - salvage determiner (current) use of aromatase inhibitors Alkaline Phosphatase Bone 6 Months M85.89 - Other specified disorders of bone density and structure, multiple sites, Z79.811 - shelter (current) use of aromatase inhibitors Albumin Level 6 Months M85.89 - Other specified disorders of bone density and structure, multiple sites, Z79.811 - shelter (current) use of aromatase inhibitors Vitamin D 25-OH Total 6 Months M.89 - Other specified disorders of bone density and structure, multiple sites, Z79.811 - salvage determiner (current) use of aromatase inhibitors Creatinine Urine 6 Months M.89 - Other specified disorders of bone density and structure, multiple sites, Z79.811 - salvage determiner (current) use of aromatase inhibitors Calcium 6 Months M85.89 - Other specified disorders of bone density and structure, multiple sites, Z79.811 - salvage determiner (current) use of aromatase inhibitors Calcium, Random Urine 6 Months M85.89 - Other specified disorders of bone density and structure, multiple sites, Z79.811 - shelter (current) use of aromatase inhibitors Medications: New alendronate (Fosamax) 70 mg PO QWEEK 12 tabs 3RF calcium carbonate-vitamin D3 600 mg-20 mcg (800 unit) (Caltrate with Vitamin D3) 1 tab PO DAILY 30 tabs 8RF Changed From cholecalciferol (vitamin D3) 50 mcg PO DAILY To cholecalciferol (vitamin D3) 25 mcg PO DAILY 60 caps 8RF Patient Instructions: Do blood work mid January We will call with results Continue levothyroxine 75 mcg daily Continue vitamin D 2400 units Continue calcium 600 mg daily in supplements plus in diet 2-3 servings in milk, yogurt, cheese daily Start fosamax 70 mg once weekly For Fosamax Administer first thing in the morning and >30 minutes before the first food, beverage (except plain water), or other medication(s) of the day. Do not take with mineral water or with other beverages. Patients should be instructed to stay upright (not to lie down) for >30 minutes?and?until after first food of the day (to reduce esophageal irritation). Tablet (Fosamax): Must be taken with 6 to 8 oz of plain water. The tablet should be swallowed whole; do not chew or suck. Coding Level of Care Code Est Pt Level 4 (65206) Diagnoses Aromatase inhibitor use Z79.811 Osteopenia of multiple sites M85.89 Osteopenia location: multiple sites Toxic multinodul goiter E05.20 Postoperative hypothyroidism E89.0 Hypothyroidism type: postoperative Time Spent (min) 30
[2024-12-14 14:31] VITALS: BP 98/58; PULSE 87; O2SAT 98; BMI 24.1
== END 2024-12-14 15:08 | disposition home or self-care (01) ==
PROVIDERS: PCP Internal Medicine; Visit Provider Student in an Organized Health Care Education/Training Program
DX: Z79.811 Long term (current) use of aromatase inhibitors (principal); M85.89 Other specified disorders of bone density and structure, multiple sites; E05.20 Thyrotoxicosis with toxic multinodular goiter without thyrotoxic crisis or storm; E89.0 Postprocedural hypothyroidism
CPT/HCPCS: 99214

== ENCOUNTER → 2024-12-14 14:23 | Outpatient (BNVA) | payer MEDICAID, SELFPAY | PROVIDERS: PCP Internal Medicine; Visit Provider Student in an Organized Health Care Education/Training Program | DX: M85.89 Other specified disorders of bone density and structure, multiple sites (principal); E05.20 Thyrotoxicosis with toxic multinodular goiter without thyrotoxic crisis or storm; E89.0 Postprocedural hypothyroidism; Z79.811 Long term (current) use of aromatase inhibitors | CPT/HCPCS: 99212 ==

== ENCOUNTER 2025-01-07 13:48 | Outpatient (REF) | payer MEDICAID, SELFPAY ==
[2025-01-07 15:34] LABS: Thyroid Stimulating Hormone 1.02 uIU/mL (0.32-4.0)
--- OUTSIDE RECORDS SUMMARY | 2025-01-07 16:50 | XMS_ITS | Encounter Summary ---
[facility] Organization [facility] Address [address] [place] [address] Care Team Providers Care Crime Lab Technician Name Role Phone Arleen Campbell DARYL Primary Care Provider [phone]- [phone] Reason for Visit * Reason Comments Follow-up Feels good Encounter Details Date Type Department Care Team (Late st Contact Info) Description 12/10/2024 2:15 PM EST Office Visit [facility] Hematology Oncology [address] [place] [phone] Jeremías Best MD [address] [place] [address] Malignant neoplasm of upper-outer quadrant of left breast in female, estrogen receptor positive (CMS/HCC) (Primary Dx) Social History Tobacco Use Types Packs/Day Years Used Date Smoking Tobacco: Never Assessed Comments No Sex and Gender Information Value Date Recorded Sex Assigned at Female 01/07/2025 2:18 PM EST Legal Sex Female 9:35 AM EST Gender Identity Female 01/07/2025 2:18 PM EST Sexual Orientation Straight 01/07/2025 2: 18 PM EST documented as of this encounter Last Filed Vital Signs Vital Sign Reading Time Taken Comments Blood Pressure 103/72 12/10/2024 2:20 PM EST Pulse 93 12/10/2024 2:20 PM EST Temperature 36.4 ??C (97.6 ??F) 12/10/2024 2:20 PM ES T Respiratory Rate - - Oxygen Saturation 100% 12/10/2024 2:20 PM EST Inhaled Oxygen Concentration - - Weight 59.4 kg (131 lb) 12/10/2024 2:20 PM EST Height - - Body Mass Index 23.96 10/19/2024 1:10 PM EST documented in this encounter Progress Notes * Jeremías Best MD - 12/10/2024 2:15 PM EST Diagnosis/treatment: #1 Left-sided stage IIA T1bN1 invasive ductal breast cancer, ER/MD-positive, HER2-negative, diagnosed in 07/2023. The patient underwent a lumpectomy and sentinel lymph node biopsy on 08/07/2023. She started adjuvant TC chemotherapy on 09/17/2023. She completed adjuvant breast radiation. She started adjuvant Zoladex on 01/31/2024. She started adjuvant letrozole on 02/12/2024. #2 Synchronous left-sided stage I T1aN0 invasive ductal breast cancer, ER/MD- positive, HER2-negative, diagnosed in 08/2023. The patient underwent a lumpectomy and sentinel lymph node biopsy on 08/07/2023. Interval history: The patient is a 44-year-old previously premenopausal female who underwent a screening mammogram on07/02/2023 which revealed a group of microcalcifications in the upper outer left breast and possibleasymmetry at 3:00 in the left breast. There was a possible asymmetry in the inner lower quadrant ofthe right breast and a group of microcalcifications at 3:00 in the right breast. A diagnostic bilateral mammogram on 07/11/2023 showed a clustered group of microcalcifications with a fine pleomorphic morphology of the left breast at 1:00 and a single group of benign-appearing calcifications in the right breast at 3:00 and a focal asymmetry in the right breast at 4:00-5:00, approximately 9 cm from the nipple. A left breast ultrasound on 07/11/2023 showed a 0.3 cm simple cyst in the area of the the microcalcifications at 1:00 in the left breast and a 0.8 x 0.4 x 0.9 cm mildly complex cyst at 3:00 in the left breast,9 cm from the nipple, and no sonographic correlate to for the group of microcalcifications with fine pleomorphic morphology in the upper outer quadrant of the left breast. A right breast ultrasound 07/11/2023 showed a 0.9 x 0.3 x 0.7 cm hypoechoic irregularly- shaped mass with multiple lobulations at 4:00-5:00 in the right breast, 9 cm from the nipple. She underwent a stereotactic core biopsy of the left breast area of calcifications on 07/18/2023 and the pathology revealed invasive ductal carcinoma, ER-moderately positive (95%), MD-moderately positive (30%), HER2- negative (0).. She underwent ultrasound-guided core biopsy of the right breast lesion at 4:00-5:00 on 07/18/2023 andthe pathology revealed benign findings. She underwent a lumpectomy and sentinel lymph node biopsy on 08/07/2023 by and the pathology revealed 2 foci of logically distinct tumor. One focus was a 0.8 cm grade 2 invasive ductal carcinoma. LVI was present. The second focus was a 0.2 cm grade 1 invasive ductal carcinoma, ER-moderately positive (send 70%), MD-weakly positive (1-10%), HER2-negative (1), Ki-67 less than 10%. LVI was not present. 1 of 1 sentinel lymph nodes was involved with a 0.1 cm tumor. 0 of 1 nonsentinel nodes were involved with tumor. She developed mild left arm lymphedema. An Oncotype DX assay sent on the 0.8 cm left breast tumor showed a high recurrence score of 32, translating into a distant recurrence risk of 25% at 9 years. She was premenopausal at presentation. Her uterus and ovaries are intact. She denied baseline hot flashes. She denies a history of thrombosis. She denies a history of osteoarthritis. She reports chronic intermittent mild left lower leg discomfort following a left trimalleolar ankle fracture in 01/2019 due to a fall. She underwent open reduction internal fixation of the fracture on 01/09/2019. A DEXAscan in 01/2024 showed osteopenia with a T-score of -1.4 in the femur. She takes calcium and vitaminD supplementation. Her black off worker plans to start Reclast. She tolerated adjuvant TC reasonably well. She reported moderate fatigue x 2 weeks. She reported mouth sores, which persists. She uses bicarbonate rinses with benefit. She uses Miracle Mouthwash withrelief. She had nausea and vomiting on cycle 2-day 1 only. She reported mild generalized abdominal pain x10 days during cycle 1.She reported difficulty with constipation during weeks 1 and 2, relieved on a bowel regimen with stool softener twice daily and MiraLAX 1 capful twice daily. She completed adjuvant breast radiation. She is tolerating Zoladex/letrozole reasonably well. She reports mild fatigue. She reports insomnia. She reports mildly bothersome hot flashes and night sweats. She declines Effexor therapy. She reports tolerable arthralgias in her lower back, knees, and feet, which have lessened over the last interval. She takes Tylenol and ibuprofen as needed with partial relief. She is compliant with self exams. She reported left breast edema. She is followed at the [facility]. She denies headaches or diplopia. She denies cough, hemoptysis, dyspnea on exertion. She denies nausea or abdominal pain. She denies new or unusual bone pain. She reports an intact appetite. She underwent gastric sleeve surgery and subsequently lost 45 pounds. Past medical history: Hyperthyroidism. Current medications: Multivitamin. Allergies: No known drug allergies. Family history: Her maternal grandmother was diagnosed with lung cancer and survived that diagnosis. Her parents have no history of cancer. 1 of 5 maternal aunts was diagnosed with breast cancer and age 70 fromthe cancer. Her brother has no history of cancer. Her sister has no history of cancer. She has no children. 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 She is single. She has no children. She statesthat she does not desire to have children in the future. She denies alcohol use. She admits to light smoking and vaping. Review of systems: The remainder of a 10 point review of systems was unremarkable. Physical examination: HEENT: Sclerae anicteric, mild tongue sores. Neck: No lymphadenopathy. Lungs: Clear to auscultation. Heart: No murmurs. Breast: Deferred. Abdomen: Soft, nontender, no organomegaly or masses. Extremities: Mild left arm lymphedema. Skin: No rash. Neurologic: Normal gait. Assessment/plan: The patient is a 44-year-old premenopausal female who presented in 07/2023 with a left-sided stage IIA T1bN1 invasive ductal breast cancer, ER/MD-positive, HER2- negative. The patient underwent a lumpectomy and sentinel lymph node biopsy on 08/07/2023. She presented in 08/2023 with a synchronous left-sided stage I T1aN0 invasive ductal breast cancer, ER/MD-positive, HER2-negative, diagnosed in 08/2023. The patient underwent a lumpectomy and sentinel lymph node biopsy on 08/07/2023. She developed mild left arm lymphedema. I referred her to the [facility]. An Oncotype DX assay on the 0.8 cm left breast tumor showed a high recurrence score. I recommended adjuvant chemotherapy which would carry the benefit of improving overall survival by approximately 15%. I recommended adjuvant TC chemotherapy. I discussed potential adverse effects of TC chemotherapy, including fatigue, reversible hair loss, nausea, constipation, diarrhea, cytopenias, and infection. She tolerated adjuvant TC reasonably well. She reported moderate fatigue x 2 weeks. She reported mouth sores, which persists. She uses bicarbonate rinses with benefit. She uses Miracle Mouthwash withrelief. She had nausea and vomiting on cycle 2-day 1 only. She reported mild generalized abdominal pain x10 days during cycle 1.She reported difficulty with constipation during weeks 1 and 2, relieved on a bowel regimen with stool softener twice daily and MiraLAX 1 capful twice daily. She completed adjuvant breast radiation. I recommended adjuvant hormonal therapy with a GnRH agonist and an aromatase inhibitor x5 years. I discussed potential adverse effects, including hot flashes, mild hair thinning, arthralgias, vaginaldryness, and loss of bone density. She completed adjuvant breast radiation. She is tolerating Zoladex/letrozole reasonably well. She reports mild fatigue. The reports insomnia. I recommended a trial of melatonin. She reports mildly bothersome hot flashes and night sweats. She declines Effexor therapy. She reports tolerable arthralgias in her lower back, knees, and feet, which have lessened over the last interval. She takes Tylenol and ibuprofen as needed with partial relief. She has mild osteopenia. She takes calcium and vitamin D supplementation. Her black off worker plansto start Reclast. She is compliant with self exams. She reported left breast edema. She is followed at the [facility]. I ordered a bilateral mammogram. There is no clinical evidence of recurrent breast cancer. Visit summary: The patient is a 44-year-old female presented 07/2023 with a left-sided stage IIa invasive ductal breast cancer, ER/MD-positive, HER2-negative. She underwent a lumpectomy. She completed adjuvant TC chemotherapy x 4 cycles. She completed adjuvant breast radiation. She is tolerating Zoladex/letrozole reasonably well. She reports mild fatigue, mildly bothersome hot flashes and night sweats, and tolerable arthralgias. She takes Tylenol and ibuprofen as needed with partial relief. This encounter is of moderate risk. The patient has a stage II breast cancer, which is life-threatening condition. She remains on anticancer therapy with adjuvant Zoladex/letrozole. documented in this encounter Plan of Treatment Upcoming Encounters Date Type Department Care Team (Late st Contact Info) Description 03/09/2025 2:30 PM EDT Office Visit [facility] Hematology Oncology [address] [place] [phone] Jeremías Best MD [address] [place] [address] 04/01/2025 1:00 PM EDT Office Visit Breast Care [facility] [address] [facility] [address] [place] [address] Lamonte Bradford MD [address] [place] [address] [address] [place] [address] 04/09/2025 2:00 PM EDT Appointment [facility] Infusion Center [address] [place] [address] 2[address] [place] [address] documented as of this encounter Visit Diagnoses Diagnosis Malignant neoplasm of upper-outer quadrant of left breast in female, estrogen receptor positive (CMS/HCC)- Primary documented in this encounter Discontinued Medications Medication Sig Discontinue Reason Start Date End Da te acetaminophen (TYLENOL) 500 mg tablet Take by mouth. - Oral 12/10/2024 diphenhydramine-phenylep hrine 12.5-5 mg/5 mL solution SWISH AND SPIT 10 ML EVERY 4 HOURS NEEDED 01/21/2024 12/10/2024 IRON, FERROUS SULFATE, ORAL Take by mouth. 12/10/2024 methIMAzole (TAPAZOLE) 5 mg tablet Take 5 mg by mouth daily. 12/10/2024 meloxicam (MOBIC) 15 mg tablet Take 15 mg by mouth daily. 12/10/2024 ondansetron (ZOFRAN) 8 mg tablet Take 1 tablet by mouth 02/18/2024 12/10/2024 documented as of this encounter Care Teams Crime Lab Technician Relationship Specialty Start Date End Date Arleen Campbell FNP [facility] [place] [phone] PCP - General Internal Medicine 08/11/21 documented as of this encounter
--- OUTSIDE RECORDS SUMMARY | 2025-01-07 16:50 | XMS_ITS | Encounter Summary ---
Author Organization [facility] Address [address] [place] [address] Care Team Providers Care Supervisor Major Appliance Assembly Name Role Phone Arleen Campbell DARYL Primary Care Provider [phone]- [phone] Reason for Visit * Episode Based Medications (Routine) - Authorized Specialty Diagnoses / Procedures Referred By Enrico t Referred To Contact Diagnoses Malignant neoplasm of upper-outer quadrant of left breast in female, estrogen receptor positive (CMS/HCC) Jeremías Best MD [address] [place] [phone] Phone: tel: fax: [facility] [address] [place] [phone] Phone: tel: fax: Referral ID Status Reason Start Date Expiration Date V isits Requested Visits Authorized [id number] Authorized 10/08/2024 10/08/2025 1 6 Encounter Details Date Type Department Care Team (Latest Contact Info) Description 01/07/2025 2:17 PM EST Hospital Encounter [facility] Infusion [address] [address] Jeremías Best MD [address] [place] [address] Malignant neoplasm of upper-outer quadrant [...] Sign Reading Time Taken Comments Blood Pressure 104/78 01/07/2025 2:35 PM EST Pulse 59 01/07/2025 2:35 PM EST Temperature 36.3 ??C (97.3 ??F) 01/07/2025 2:35 PM ES T Respiratory Rate 18 01/07/2025 2:35 PM EST Oxygen Saturation 100% 01/07/2025 2:35 PM EST Inhaled Oxygen Concentration - - Weight - - Height - - Body Mass Index - - documented in this encounter Progress Notes * Tiffany Sherwood RN - 01/07/2025 2:30 PM EST Pt arrived today for zoladex injection. Comes in accompanied by mother. Pt reports feeling well overall but does express left calf pain times about 4 days. I can feel something there. It is painful. Left leg swelling noted as well. GELY Kam notified and came to chairside to evaluate pt. US ordered. Negin HONG confirmed with TYREE Layton to proceed with zoladex today. Zoladex released. Given in left abd without issue. Next appts made and provided. No further questions. Pt sent to US. Stable at D/C. documented in this encounter Plan of Treatment Upcoming Encounters Date Type Department Care Team (Late st Contact Info) Description 03/09/2025 2:30 PM EDT Office Visit [facility] Hematology Oncology [address] [place] [phone] Jeremías Best MD [address] [place] [phone] 04/01/2025 1:00 PM EDT Office Visit Breast Care [facility] [address] [facility] [address] [place] [phone] Lamonte Bradford MD [address] [facility] [address] [place] [address] 04/09/2025 2:00 PM EDT Appointment [facility] [address] [facility] 2nd [place] [address] documented as of this encounter Visit Diagnoses Diagnosis Malignant neoplasm of upper-outer quadrant of left breast in female, estrogen receptor positive (CMS/HCC)- Primary documented in this encounter Administered Medications Inactive Administered Medications - up to 3 most recent administrations Medication Order MAR Action Action Date Dose Rate Site goserelin (ZOLADEX) chemo injection 10.8 mg 10.8 mg, subcutaneous, Once, On Marjorie 01/07/25 at 1530, For 1 dose, Inject subcutaneous into the anterior abdominal wall below the navel line HAZARDOUS Drug Precautions - High Risk (Category C/NIOSH Group 1) Antineoplastic: - Double pair of ASTM standard D6978 certified chemotherapy gloves - Chemotherapy gown - Closed-System Transfer Device (CSTD) recommended - Eye protection (goggles or face shield) required only with a potential for facial contact (i.e. concern for spitting or vomiting of the dose during or after administration)Indicatio ns:Malignant neoplasm of upper-outer quadrant of left breast in female, estrogen receptor positive (CMS/HCC) Given 01/07/2025 3:23 PM EST 10.8 mg Left Lower Abdomen documented in this encounter Orders Medications Ordered That Gary ht Not Have Been Administered Count Last Ordered Date First Ordered Date goserelin (ZOLADEX) chemo in jection 10.8 mg 1 01/07/2025 Nursing Count Last Ordered Date First Orde red Date ONC NURSING COMMUNICATION 5 1 01/07/2025 Appointment Requests Count Last Ordered Date Fi rst Ordered Date ONCBCN INFUSION APPOINTMENT REQUEST 02 documented in this encounter Care Teams Supervisor Major Appliance Assembly Relationship Specialty Start Date End Date Arleen Campbell FNP [address] [place] [phone] PCP - General Internal Medicine 08/11/21 documented as of this encounter
--- OUTSIDE RECORDS SUMMARY | 2025-01-07 16:50 | XMS_ITS | Encounter Summary ---
Author Organization [facility] Address [address] [place] [address] Care Team Providers Care Manager Manufacturing Name Role Phone Arleen Campbell CHICKEN CATCHER Primary Care Provider +1- [phone] Reason for Referral * Imaging (Emergency) - Pending Review Specialty Diagnoses / Procedures Referred By Contac t Referred To Contact Diagnoses Left leg pain Malignant neoplasm of upper-outer quadrant of left breast in female, estrogen receptor positive (CMS/HCC) Procedures Vascular US duplex lower extremity venous left Sandra Aldrich PA [address] [place] [address] Phone: tel: fax: [facility] Referral ID Status Reason Start Date Expiration Date V isits Requested Visits Authorized [id number] Pending Review 01/07/2025 01/07/2026 1 1 Reason for Visit * Imaging (Emergency) - Pending Review Specialty Diagnoses / Procedures Referred By Enrico sweet Referred To Contact Diagnoses Left leg pain Malignant neoplasm of upper-outer quadrant of left breast in female, estrogen receptor positive (CMS/HCC) Procedures Vascular US duplex lower extremity venous left Sandra Aldrich PA [address] [place] [address] Phone: tel: fax: [facility] Referral ID Status Reason Start Date Expiration Date V isits Requested Visits Authorized [id number] Pending Review 01/07/2025 01/07/2026 1 1 Encounter Details Date Type Department Care Team (Latest Contact Info) Description 01/07/2025 3:45 PM EST Hospital Encounter [facility] Ultrasound [address] [place] [address] Left leg pain; Malignant neoplasm of upper-outer quadrant of left breast in female, estrogen receptor positive (CMS/HCC) Social History Tobacco Use Types Packs/Day Years Used Date Smoking Tobacco: Never Assessed Comments No Sex and Gender Information Value Date Recorded Sex Assigned at Female 01/07/2025 2:18 PM EST Legal Sex Female 9:35 AM EST Gender Identity Female 01/07/2025 2:18 PM EST Sexual Orientation Straight 01/07/2025 2: 18 PM EST documented as of this encounter Plan of Treatment Upcoming Encounters Date Type Department Care Team (Late st Contact Info) Description 03/09/2025 2:30 PM EDT Office Visit [facility] Hematology Oncology [address] [place] [address] Jeremías Best MD [address] [place] [address] 04/01/2025 1:00 PM EDT Office Visit Breast Care [facility] [address] [facility] [address] [place] [address] Lamonte Bradford MD [address] [facility] [address] [place] [address] 04/09/2025 2:00 PM EDT Appointment [facility] Infusion Center [address] [facility] 2nd [place] [address] documented as of this encounter Procedures Procedure Name Priority Date/Time Associated Diagnosis Comments VAS US DUPLEX LOWER EXT VENOUS LEFT STAT 01/07/2025 4:27 PM EST Left leg pain Malignant neoplasm of upper-outer quadrant of left breast in female, estrogen receptor positive (CMS/HCC) documented in this encounter Results * Vascular US duplex lower extremity venous left (01/07/2025 4:27 PM EST) Anatomical Region Laterality Modality Vascular, Abdomen Ultrasound 01/07/2025 4:31 PM EST Impressions 01/07/2025 4:31 PM EST NO LEFT LOWER EXTREMITY DEEP VENOUS THROMBOSIS. -------- FINAL REPORT -------- Dictated By: Eda Harper Dictated Date: 01/07/2025 16:31 ET Assigned Physician: Eda Harper Reviewed and Electronically Signed By: Eda Harper Signed Date: 01/07/2025 16:31 ET Workstation ID: [id number] Transcribed By: Self Edit Transcribed Date: 01/07/2025 16:31 ET Narrative 01/07/2025 4:31 PM EST Ultrasound venous duplex left lower extremity INDICATION: pain in extremities r/o DVT; hx of breast cancer, on letrozole TECHNIQUE: 2-D and color Doppler imaging of the left lower extremity venous vasculature with compression and augmentation maneuvers. COMPARISON: No priors available. FINDINGS: There is normal flow, compression, and augmentation from the common femoral through the popliteal vein. No focal fluid collection. Procedure Note Eda Harper MD - 01/07/2025 Ultrasound venous duplex left lower extremity INDICATION: pain in extremities r/o DVT; hx of breast cancer, on letrozole TECHNIQUE: 2-D and color Doppler imaging of the left lower extremityvenous vasculature with compression and augmentation maneuvers. COMPARISON: No priors available. FINDINGS: There is normal flow, compression, and augmentation from the commonfemoral through the popliteal vein. No focal fluid collection. IMPRESSION: NO LEFT LOWER EXTREMITY DEEP VENOUS THROMBOSIS. -------- FINAL REPORT -------- Dictated By: Eda Harper Dictated Date: 01/07/2025 16:31 ET Assigned Physician: Eda Harper Reviewed and Electronically Signed By: Eda Harper Signed Date: 01/07/2025 16:31 ET Workstation ID: [id number] Transcribed By: Self Edit Transcribed Date: 01/07/2025 16:31 ET us Sandra WATSON CV VASCULAR PROCEDURES Final Res ult documented in this encounter Visit Diagnoses Diagnosis Left leg pain Pain in soft tissues of limb Malignant neoplasm of upper-outer quadrant of left breast in female, estrogen receptor positive (CMS/HCC) documented in this encounter Care Teams Manager Manufacturing Relationship Specialty Start Date End Date Arleen Campbell FNP [facility] [place] [address] PCP - General Internal Medicine 08/11/21 documented as of this encounter
--- OUTSIDE RECORDS SUMMARY | 2025-01-07 16:50 | XMS_ITS | Clinical Summary ---
Author Organization [facility] Address [address] [place] [address] Phone Care Team Providers Care Card Tender Name Role Phone Arleen Campbell AERIAL TRAM OPERATOR Primary Care Provider +1- [phone] Allergies No known active allergies Medications letrozole (FEMARA) 2.5 mg tablet Take 1 tablet (2.5 mg total) by mouth 1 (one) time each day 4 Active cholecalcifero l (VITAMIN D-3) 25 mcg (1,000 unit) capsule Take 2 Capsules by mouth. 0 Active ferrous sulfate 325 mg (65 mg elemental iron) tablet TAKE 1 TABLET BY MOUTH EVERY OTHER DAY 4 Active omeprazole (PriLOSEC) [address] capsule Take 20 mg by mouth daily. Active levothyroxine (SYNTHROID, LEVOTHROID) 88 mcg tablet Take 75 mcg by mouth 1 (one) time each day before breakfast. Active diphenhydramin e-phenylephrin e 12.5-5 mg/5 mL solution SWISH AND SPIT 10 ML EVERY 4 HOURS NEEDED 4 025 Discontinued acetaminophen (TYLENOL) 500 mg tablet Take by mouth. - Oral 025 Discontinued ondansetron (ZOFRAN) 8 mg tablet Take 1 tablet by mouth 4 025 Discontinued IRON, FERROUS SULFATE, ORAL Take by mouth. 025 Discontinued meloxicam (MOBIC) 15 mg tablet Take 15 mg by mouth daily. 025 Discontinued methIMAzole (TAPAZOLE) 5 mg tablet Take 5 mg by mouth daily. 025 Discontinued Active Problems Problem Noted Date Diagnosed Date Post-mastectomy pain syndrome 11/26/2024 Class 2 obesity due to exces s calories with body mass index (BMI) of 35.0 to 35.9 in adult 08/08/2024 Malignant neoplasm of upper- outer quadrant of left breast in female, estrogen receptor positive 08/08/2024 Encounters Date Type Department Care Team Description 01/07/2025 3:45 PM EST Hospital Encounter [facility] Ultrasound [address] [place] [address] Left leg pain; Malignant neoplasm of upper-outer quadrant of left breast in female, estrogen receptor positive (CMS/HCC) 01/07/2025 2:45 PM EST Office Visit [facility] Hematology Oncology [address] [place] [phone] Sandra Aldrich PA Left leg pain (Primary Dx); Malignant neoplasm of upper-outer quadrant of left breast in female, estrogen receptor positive (CMS/HCC) 01/07/2025 2:17 PM EST Hospital Encounter [facility] Infusion Center [address] [place] [phone] Jeremías Best MD Malignant neoplasm of upper-outer quadrant of left breast in female, estrogen receptor positive (CMS/HCC) (Primary Dx) 12/28/2024 3:30 PM EST Treatment [facility] Occupational Therapy [address] [phone] Dede Wadsworth P, OTR/L Left shoulder pain, unspecified chronicity (Primary Dx) 12/14/2024 3:30 PM EST Treatment [facility] Occupational Therapy [address] [phone] Dede Wadsworth, OTR/L Left shoulder pain, unspecified chronicity (Primary Dx); Lymphatic edema 12/10/2024 2:15 PM EST Office Visit [facility] Hematology Oncology [address] [place] [phone] Jeremías Best MD Malignant neoplasm of upper-outer quadrant of left breast in female, estrogen receptor positive (CMS/HCC) (Primary Dx) 12/08/2024 3:00 PM EST Treatment [facility] Occupational Therapy [address] [place] [phone] Gijzen, Dede P, OTR/L Left shoulder pain, unspecified chronicity (Primary Dx); Lymphatic edema 11/30/2024 3:30 PM EST Treatment [facility] Occupational Therapy [address] [place] [phone] Gijzen, Dede P, OTR/L Left shoulder pain, unspecified chronicity (Primary Dx) 11/26/2024 3:30 PM EST Treatment [facility] Occupational Therapy [address] [place] [phone] Gijzen, Dede P, OTR/L Left shoulder pain, unspecified chronicity (Primary Dx); Lymphatic edema 11/23/2024 3:30 PM EST Treatment [facility] Occupational [address] [phone] Gijzen, Dede P, OTR/L Left shoulder pain, unspecified chronicity (Primary Dx); Lymphatic edema; Malignant neoplasm of upper-outer quadrant of left breast in female, estrogen receptor positive (CMS/HCC) 11/19/2024 1:00 PM EST Evaluation [facility] Occupational Therapy [address] [place] [phone] Gijzen, Dede P, OTR/L Left shoulder pain, unspecified chronicity (Primary Dx); Lymphatic edema 11/19/2024 Plan of Care Documentation [facility] Occupational Therapy [address] [place] [phone] 10/20/2024 5:15 PM EST Treatment [facility] Outpatient Rehabilitation [address] [phone] David Donnelly PTA Left arm pain (Primary Dx) 10/19/2024 12:48 PM EST - 10/19/2024 11:59 PM EST Hospital [facility] [address] [phone] Malignant neoplasm of upper-outer quadrant of left breast in female, estrogen receptor positive (CMS/HCC) Discharge Disposition: Home or Self Care 10/14/2024 4:30 PM EST Evaluation [address] [phone] Ly Balderas, PT Left arm pain (Primary Dx) 10/14/2024 Plan of Care Documentation [facility] [address] [phone] 10/09/2024 2:18 PM EST - 10/09/2024 11:59 PM EST Hospital Encounter [facility] Infusion Center [address] [phone] Malignant neoplasm of upper-outer quadrant of left breast in female, estrogen receptor positive (CMS/HCC) (Primary Dx) Discharge Disposition: Home or Self Care from Last 3 Months Immunizations Name Administration [...] Orientation Straight 01/07/2025 2: 18 PM EST Obstetrics History Last Filed Vital Signs Vital [...] (131 lb) 12/10/2024 2:20 PM EST Height 157.5 cm (5' 2 ) 10/19/2024 1:10 PM EST Body Mass Index 23.96 10/19/2024 1:10 PM EST Plan of Treatment Upcoming Encounters Date Type Department Care Team (Late st Contact Info) Description 03/09/2025 2:30 PM EDT Office Visit [facility] Hematology Oncology [address] [place] [phone] Jeremías Best MD [address] [place] [phone] 04/01/2025 1:00 PM EDT Office Visit [facility] [address] [facility] [address] [place] [address] Lamonte Bradford MD 271 [facility] [address] [place] [address] 04/09/2025 2:00 PM EDT Appointment [facility] Infusion Center [address] [facility] 2nd [place] [phone] Health Maintenance Due Date Last Done Comments [...] patient's age to complete this topic Meningococcal B Vacine Aged Out No lo nger eligible based on patient's age to complete this topic RSV Immunization Patients Under 20 months Aged Out No longer eligible based on patient's age to complete this topic Varicella Vaccines Aged Out No longer eligible based on patient's age to complete this topic Procedures Procedure Name Priority Date/Time Associated Diagnosis Comments VAS US DUPLEX LOWER EXT VENOUS LEFT STAT 01/07/2025 4:27 PM EST Left leg pain Malignant neoplasm of upper-outer quadrant of left breast in female, estrogen receptor positive (CMS/HCC) MG MAMMO DIGITAL DIAGNOSTIC W ELSA BILAT Routine 10/19/2024 2:19 PM EST Malignant neoplasm of upper-outer quadrant of left breast in female, estrogen receptor positive (CMS/HCC) LIPID PANEL Routine 01/30/2024 PAP SMEAR Routine 01/30/2022 HEPATITIS C SCREENING Routine 09/19/2020 HIV SCREENING Routine 09/19/2020 from Last 3 Months or Most Recently Relevant to Health Maintenance Results * Vascular US duplex lower extremity [...] Signed Date: 01/07/2025 16:31 ET Workstation ID: [id number] Transcribed By: Self Edit Transcribed Date: 01/07/2025 [...] Signed Date: 01/07/2025 16:31 ET Workstation ID: [id number] Transcribed By: Self Edit Transcribed Date: 01/07/2025 16:31 ET us Sandra WATSON CV VASCULAR PROCEDURES Final Res ult * MG Mammo Digital Diagnostic w Elsa bilat (10/19/2024 2:19 PM EST) Anatomical Region Laterality Modality Breast Bilateral Mammography 10/19/2024 2:14 PM EST Addenda Addendum by Andrea Crowder MD on 10/19/2024 2:31 PM EST EXAM: MG MAMMO DIGITAL DIAGNOSTIC W ELSA BILAT EXAM DATE AND TIME: 10/19/2024 1:09 PM HISTORY: ??Excisional biopsy of the left breast for invasive ductal carcinoma COMPARISON: ??08/05/2023 through 07/02/2023 TECHNIQUE: Bilateral digital breast tomosynthesis was performed in the CC and MLO projections. Computer aided detection with Alianza 3D 3.1 was employed. TISSUE DENSITY: b. [...] screening mammogram BILATERAL in 1 year. G0202, [id number], [id number] -------- FINAL REPORT -------- Dictated By: ANDREA CROWDER Dictated Date: 10/19/2024 14:14 ET Assigned Physician: ANDREA CROWDRE Reviewed and Electronically Signed By: ANDREA CROWDER Signed Date: 10/19/2024 14:31 ET Workstation ID: [id number] Transcribed By: Self Edit Transcribed Date: 10/19/2024 [...] screening mammogram BILATERAL in 1 year. G0202, [id number], [id number] -------- FINAL REPORT -------- Dictated By: ANDREA CROWDRE Dictated Date: 10/19/2024 14:14 ET Assigned Physician: ANDREA CROWDER Reviewed and Electronically Signed By: ANDREA CROWDER Signed Date: 10/19/2024 14:31 ET Workstation ID: [id number] Transcribed By: Self Edit Transcribed Date: 10/19/2024 14:14 ET Narrative 10/19/2024 2:31 PM EST EXAM: MG MAMMO DIGITAL DIAGNOSTIC W ELSA BILAT EXAM DATE AND TIME: 10/19/2024 1:09 PM HISTORY: ??Excisional biopsy of the left breast for invasive ductal carcinoma COMPARISON: ??08/05/2023 through 07/02/2023 TECHNIQUE: Bilateral digital breast tomosynthesis was performed in the CC and MLO projections. Computer aided detection with Alianza 3D 3.1 was employed. TISSUE DENSITY: b. There are scattered areas of fibroglandular density. FINDINGS: Postsurgical changes seen in the left upper outer quadrant at mid depth. ??This is consistent with the patient's history. ??No suspicious masses, grouped microcalcifications, or areas of architectural distortion are seen. The skin and vascularity are unremarkable. Jeremías Best MD IMG BI PROCEDURES Edited Re sult - Final * Lipid panel (01/30/2024) Pathologist [facility] LDL/HDL Ratio 0 Comment:no interpretation Triglycerides 0 mg/dL Comment:no interpretation Cholesterol 0 mg/dL Comment:no interpretation HDL 0 mg/dL Comment:no interpretation LDL Cholesterol 0 mg/dL Comment:no interpretation Blood Venous blood specimen / Unknown Historical Provider LAB BLOOD ORDERABLES Shraddha l Result * Pap Smear (01/30/2022) Pathologist [facility] Pap smear no interperation Historical Provider HEALTH MAINTENANCE Final Result * HIV Screening (09/19/2020) HIV Screening abstract us Historical Provider HEALTH MAINTENANCE Final Result * Hepatitis C Screening (09/19/2020) Hepatitis C Screening abstract us Historical Provider HEALTH MAINTENANCE Final Result from Last 3 Months or Most Recently Relevant to Health Maintenance Insurance [id number] Care Teams Card Tender Relationship Specialty Start Date End Date Arleen Campbell FNP [address] [place] [phone] PCP - General Internal Medicine 08/11/21
--- OUTSIDE RECORDS SUMMARY | 2025-01-07 16:50 | XMS_ITS | Encounter Summary ---
Author Organization [facility] Address [address] [place] [address] Care Team Providers Care Page Makeup System Operator Name Role Phone Arleen Campbell Primary Care Provider [phone]- [phone] Reason for Visit * Consultation (Routine) - Authorized Specialty Diagnoses / Procedures Referred By Enrico sweet Referred To Contact Occupational Therapy Diagnoses Malignant neoplasm of upper-outer quadrant of left breast in female, estrogen receptor positive (CMS/HCC) Left shoulder pain, unspecified chronicity Lamonte Bradford MD [address] [facility] [address] [place] [address] Phone: tel: fax: [facility] Occupational Therapy [address] [phone] Phone: tel: fax: Referral ID Status Reason Start Date Expiration Date Visits Requested Visits Authorized [id number] Authorized Specialty Services Required 11/19/2024 11/19/2025 20 20 Encounter Details Date Type Department Care Team (Late st Contact Info) Description 12/28/2024 3:30 PM EST Treatment [facility] Occupational Therapy [address] [phone] Dede Wadsworth, OTR/L Left shoulder [...] PM EST documented as of this encounter Progress Notes * JOAQUINA Purcell/Charanjit - 12/28/2024 3:30 PM EST Images from the original note were not included. [facility] - Outpatient OCCUPATIONAL THERAPY Discharge Date: 12/28/2024 Visit Number: 5 Patient Name: Abhijit Willis : 1980 Age: 44 y.o. Gender: female Diagnosis: ICD-10-CM ICD-9-CM 1. Left shoulder pain, unspecified chronicity M25.512 719.41 Date of Onset: 11/19/2024 Referring Provider: Lamonte Bradford MD Insurance: [place] / [place] / Product Type: *No Product type* / Patient identified by: JOAQUINA Purcell/Charanjit Language: speaks Sami however sufficient in Niuean and does not require an performing arts technicians Allergies: has No Known Allergies. Precautions: left Upper quadrant lymph edema precautions SUBJECTIVE Subjective Report: I am all better, no more pain and I do my exercises Pain: No pain OBJECTIVE; AROM right shoulder = AROM left shoulder Minimal palpable fibrosis in left breast NO visible edema in left breast / left UE TREATMENT INTERVENTION Procedures: Therapeutic exercises : prone with arm hanging of side of treatment table with 1 lbs dumbbell : lift Left UE. from T and Y positions x 10 reps with shoulder in neutral and x 10 reps with shoulder in ER. With 2 lbs dumbbell x 10 reps. Rows In supine with 4 lbs dowel 2 x 10 reps ( chest press, serratus punch and flexion in scapular plane) Pectoralis stretch in doorway x 2 positions to address diagonal and horizontal fibers X 10 reps ( SH ER/IR/EX/ FLEX) with max resistant theraband Overhead hang for shoulder distraction and tissue stretch 2 x 30 sec. In short sit with hands back of head x 5 reps ( lateral trunk stretch to left and right and flex and ext) Manual therapy according to Dr. Moreland method Increased lymph flow through termini/ profundus ( neck routine), B axilla's, L intercostals. L paraspinals and Left para sternum. Stimulated lymph flow from left breast into these drainage areas Used myofascial techniques to address tissue tightness left lateral chest /axilla/ proximal humerus G/H joint mobs for distraction, inferior and dorsal glides Scapula mobs. and posterior capsula stretch Provided soft tissue work to subscapular and biceps muscle area to allow for pain free shoulder ER Pain Reassessment: no pain patient did report stretch pain when performing stretches, no residual pain Assessment/Response To Treatment: Good I will do all the exercises you told me to do Patient Education: Education provided: Yes POC / HEP Education Provided To: Patient utilizing Explanation and Demonstration mode(s) of education Response to Education: Good PLAN POC Development/Review: Other: Discharge as patient met all her goals ; Participants: Parent/ patient Equipment Recommended: none; Equipment Provided: none GOALS Goals Addressed This Visit's Progress COMPLETED: LTG in 8 weeks (pt-stated) Customer Operations Associate Goals 1. Patient will be independent with home exercise program to maintain therapeutic gains. 2. Patient will be able to do IADLs like cooking/cleaning with min to no pain 3. Patient will be able to lift things with min to no pain or limitation 12/08/2024 Patient reports no pain and no limitations performing I ADL and ADL tasks Independent in HEP COMPLETED: OT STG's 4-6 visits, LTG 12 visits On track Patient will be able to demo RTC strenghtening routing Patient will be able to demo pectoralis/ posterior capsula stretching routine Patient will report decreased pain ; Pain not affecting her sleep 12/08/2024 Patient reports no pain sleeping / able to demo RTC. strengthening and pectoralis stretches LTG's AROM left shoulder = AROM right shoulder Patient will report less pain, never more than 3 :10 Patient will be able to perform home management tasks ( cleaning /cooking) without pain Patient is independent In HEP ( RTC/ periscapula strengthening ) 12/29 All LTG's have been met COMPLETED: To get rid of the pain in my arm (pt-stated) 12/08/2024 My chest is better but the shoulder, the joint, hurts sometimes 2024 ; NO pain my shoulder Is perfect Total Treatment Time: 60 minutes Documentation completed by Dede Wadsworth OTR/L documented in this encounter Plan of Treatment Upcoming Encounters Date Type Department Care Team (Late st Contact Info) Description 03/09/2025 2:30 PM EDT Office Visit [facility] Hematology Oncology [address] [place] [phone] Jeremías Best MD [address] [place] [phone] 04/01/2025 1:00 PM EDT Office Visit [facility] 271 [facility] [address] [place] [phone] Lamonte Bradford MD [address] [facility] [address] [place] [address] 04/09/2025 2:00 PM EDT Appointment [facility] Infusion Center 271 [facility] 2nd [place] [phone] documented as of this encounter Visit Diagnoses Diagnosis Left shoulder pain, unspecified chronicity- Primary documented in this encounter Care Teams Page Makeup System Operator Relationship Specialty Start Date End Date Arleen Campbell FNP [address] [place] [phone] PCP - General Internal Medicine 08/11/21 documented as of this encounter
--- OUTSIDE RECORDS SUMMARY | 2025-01-07 16:50 | XMS_ITS | Encounter Summary ---
Author Organization [facility] Address [address] [place] [address] Care Team Providers Care Lisw Name Role Phone Arleen Campbell Primary Care Provider +1- [phone] Reason for Visit * Consultation (Routine) - Authorized Specialty Diagnoses / Procedures Referred By Enrico sweet Referred To Contact Occupational Therapy Diagnoses Malignant neoplasm of upper-outer quadrant of left breast in female, estrogen receptor positive (CMS/HCC) Left shoulder pain, unspecified chronicity Lamonte Bradford MD 271 [facility] [address] [place] [address] Phone: tel: fax: [facility] Occupational Therapy [address] [phone] Phone: tel: fax: Referral ID Status Reason Start Date Expiration Date Visits Requested Visits Authorized [id number] Authorized Specialty Services Required 11/19/2024 11/19/2025 20 20 Encounter Details Date Type Department Care Team (Late st Contact Info) Description 12/08/2024 3:00 PM EST Treatment [facility] Occupational Therapy [address] [phone] Dede Wadsworth, OTR/L Left shoulder [...] of this encounter Progress Notes * Dede Wadsworth OTR/Charanjit - 12/08/2024 3:00 PM EST Images from the original note were not included. [facility] - Outpatient OCCUPATIONAL THERAPY DAILY TREATMENT NOTE Date: 12/08/2024 Visit Number: 2 Patient Name: Abhijit Willis : 1980 Age: 44 y.o. Gender: female Diagnosis: ICD-10-CM ICD-9-CM 1. Left shoulder pain, unspecified chronicity M25.512 719.41 2. Lymphatic edema I89.0 457.1 Date of Onset: 11/19/2024 Referring Provider: Lamonte Bradford MD Insurance: Pay[place]: [place] / Plan[place] / Product Type: *No Product type* / Language: Speaks and understands Luxembourgish as preferred language with no staff interpreter required Allergies: has No Known Allergies. Precautions: Left UE lymph edema precautions SUBJECTIVE Subjective Report: I do the exercises you taught me and I think I am getting better Pain: Intermittent pain in left shoulder with certain movements No pain in left chest OBJECTIVE Healthy female Minimal fibrosis in left breast Pain with overhead reach of her left shoulder ( impingement and tissue pull chest) TREATMENT INTERVENTION Procedures: prone with arm hanging of side of treatment table lift Left UE. from T and Y positions x 10 reps with shoulder in neutral and x 10 reps with shoulder in ER. With 2 lbs dumbbell x 10 reps. Rows In supine with 4 lbs dowel 2 x 10 reps ( chest press, serratus punch and flexion in scapular plane) Rolling ball versus wall for shoulder stability Pectoralis stretch in doorway X 10 reps ( SH ER/IR/EX/ FLEX) Overhead hang for shoulder distraction and tissue stretch In short sit with hands back of head x 5 reps ( lateral trunk stretch to left and right and flex and ext) Manual therapy according to Dr. Moreland method Increased lymph flow through termini/ profundus ( neck routine), B axilla's, L intercostals. L paraspinals and Left para sternum Used myofascial techniques to address tissue tightness left lateral chest /axilla/ proximal humerus G/H joint mobs for distraction, inferior and dorsal glides Scapula mobs. and posterior capsula stretch Provided soft tissue work to subscapular muscle area to allow for pain free shoulder ER Pain Reassessment: no pain Assessment/Response To Treatment: Good I am doing so much better I liked hanging it felt good Patient Education: Education provided: Yes Education Provided To: Patient utilizing Explanation and Demonstration mode(s) of education Response to Education: Good PLAN POC Development/Review: Changes in the Plan of Care; Participants: Patient Equipment Recommended: none; Equipment Provided: upgraded theraband for HEP GOALS Goals Addressed This Visit's Progress OT [...] but the shoulder, the joint, hurts sometimes Total Treatment Time: 60 minutes Documentation completed by JOAQUINA Purcell/Charanjit documented in this encounter Plan of Treatment Upcoming Encounters Date Type Department Care Team (Late st Contact Info) Description 03/09/2025 2:30 PM EDT Office Visit [facility] Hematology Oncology [address] [place] [phone] Jeremías Best MD [address] [place] [phone] 04/01/2025 1:00 PM EDT Office Visit Breast Care Center [facility] 271 [facility] [address] [place] [address] Lamonte Bradford MD 271 [facility] [place] [address] [place] [address] 04/09/2025 2:00 PM EDT Appointment [facility] Infusion Center [address] [facility] 2nd [place] [phone] documented as of this encounter Visit Diagnoses Diagnosis Left shoulder pain, unspecified chronicity- Primary Lymphatic edema Other noninfectious lymphedema documented in this encounter Care Teams Lisw Relationship Specialty Start Date End Date Arleen Campbell FNP [address] [place] [phone] PCP - General Internal Medicine 08/11/21 documented as of this encounter
--- OUTSIDE RECORDS SUMMARY | 2025-01-07 16:50 | XMS_ITS | Encounter Summary ---
Author Organization [facility] Address [address] [place] [address] Care Team Providers Care Clerical Assigner Name Role Phone Arleen Campbell INSOLE FILLER Primary Care Provider [phone]- [phone] Reason for Referral * Imaging (Emergency) - Pending Review Specialty Diagnoses / Procedures Referred By Contac t Referred To Contact Diagnoses Left leg pain Malignant neoplasm of upper-outer quadrant of left breast in female, estrogen receptor positive (CMS/HCC) Procedures Vascular US duplex lower extremity venous left Elke Flores PA [address] [place] [address] Phone: tel: fax: [facility] Referral ID Status Reason Start Date Expiration Date V isits Requested Visits Authorized [id number] Pending Review 01/07/2025 01/07/2026 1 1 * Imaging (Emergency) - Authorized Specialty Diagnoses / Procedures Referred By Contac t Referred To Contact Diagnoses Left leg pain Malignant neoplasm of upper-outer quadrant of left breast in female, estrogen receptor positive (CMS/HCC) Procedures Vascular US duplex lower extremity venous insufficiency left Elke Flores PA [address] [place] [address] Phone: tel: fax: [facility] Referral ID Status Reason Start Date Expiration Date V isits Requested Visits Authorized [id number] Authorized 01/07/2025 01/07/2026 1 1 Encounter Details Date Type Department Care Team (Late st Contact Info) Description 01/07/2025 2:45 PM EST Office Visit [facility] Hematology Oncology [address] [place] [address] Elke Flores PA [address] [place] [address] Left leg pain (Primary Dx); Malignant neoplasm [...] as of this encounter Progress Notes * SHIRLEY Rodriguez - 01/07/2025 2:45 PM ESTAddended by: ELKE FLORES on: 01/07/2025 03:35 PM Modules accepted: Orders * SHIRLEY Rodriguez - 01/07/2025 2:45 PM EST Images from the original note were not included. Hematology/Oncology Consult Note Date of Consult: 01/07/2025 Patient's Primary Care Physician: DARYL Medina Subjective History of Present Illness 44 year old female with Hx of : # 1 Left-sided stage IIA T1bN1 invasive ductal breast cancer, ER/NH-positive, HER2-negative, diagnosed in 07/2023. The patient underwent a lumpectomy and sentinel lymph node biopsy on 08/07/2023. She started adjuvant TC chemotherapy on 09/17/2023. She completed adjuvant breast radiation. She started adjuvant Zoladex on 01/31/2024. She started adjuvant letrozole on 02/12/2024. # 2 Synchronous left-sided stage I T1aN0 invasive ductal breast cancer, ER/NH- positive, HER2-negative, diagnosed in 08/2023. The patient underwent a lumpectomy and sentinel lymph node biopsy on 08/07/2023. She is on letrozole. She is here for Zoladex treatment. I was asked by infusion nurse, Migdalia, to see patient for further evaluation of leg pain. Patient states that for the past 4-5 days she developed calf pain, which then progressed to left postero-lateral thigh pain. No CP or SOB. No recent travel, hospitalizations or surgery. She feels well otherwise. Past Medical History No past medical history on file. Past Surgical History Past Surgical History: Procedure Laterality Date BREAST LUMPECTOMY STEREOTACTIC CORE BIOPSY Family History No family history on file. Personal and Social History Social History Tobacco Use Smoking Status Not on file Smokeless Tobacco Not on file Social History Substance and Sexual Activity Alcohol Use Not on file Social History Substance and Sexual Activity Drug Use Not on file REVIEW OF SYSTEMS: Constitutional: No fevers, weight loss, nightsweats, chills, fatigue HEENT: No oral lesions Respiratory: No cough, shortness of breath Cardiac: No chest pain, palpitations GI: No nausea, vomiting, diarrhea, constipation, abdominal pain : No urinary complaints Skin: No rashes or ease of bruising Neuro: No headaches, dizziness, focal weakness, paresthesias Musculoskeletal: + LLE pain; No bone pain, no joint pain. Hem/Lymph : No palpable lymph nodes, no bleeding or easy bruising Objective Medications Current Outpatient Medications: cholecalciferol (VITAMIN D-3) 25 mcg (1,000 unit) capsule, Take 2 Capsules by mouth., Disp: , Rfl: ferrous sulfate 325 mg (65 mg elemental iron) tablet, TAKE 1 TABLET BY MOUTH EVERY OTHER DAY, Disp:, Rfl: letrozole (FEMARA) 2.5 mg tablet, Take 1 tablet (2.5 mg total) by mouth 1 (one) time each day, Disp: , Rfl: levothyroxine (SYNTHROID, LEVOTHROID) 88 mcg tablet, Take 75 mcg by mouth 1 (one) time each day before breakfast., Disp: , Rfl: omeprazole (PriLOSEC) [address] capsule, Take 20 mg by mouth daily. (Patient not taking: Reported on09/29/2024), Disp: , Rfl: No current facility-administered medications for this visit. Facility-Administered Medications Ordered in Other Visits: goserelin (ZOLADEX) chemo injection 10.8 mg, 10.8 mg, subcutaneous, Once, Jeremías Best MD Allergies No Known Allergies Physical Exam General: well appearing, in no acute distress Eyes: conjunctiva pink and sclera are Normal without icterus Oral cavity: No erythema or exudates Neck Neck supple, no adenopathy, Resp: CTA; normal inspiratory effort, no wheezes, rhonchi or rales Cardio: RRR, no murmurs rubs or gallops MSK: FROM of UE and Les bilaterally; minimal LLE edema with left calf TTP Skin: warm, dry, no rashes Neuro: alert and oriented, normal speech, normal gait Imaging Labs Assessment & Plan The patient is a 44-year-old female presented 07/2023 with a left-sided stage IIa invasive ductal breast cancer, ER/NH-positive, HER2-negative. She underwent a lumpectomy. She completed adjuvant TC chemotherapy x 4 cycles. She completed adjuvant breast radiation. She is tolerating Zoladex/letrozole reasonably well. She reports mild fatigue, mildly bothersome hot flashes and night sweats, and tolerable arthralgias. She takes Tylenol and ibuprofen as needed with partial relief. On letrozole. Case discussed with Dr. Best, may proceed with Zoladex today. STAT LLE US ordered to r/o DVT. FOV with MD chester 03/09/24; RTC sooner prn This encounter is of moderate risk. The patient has a stage II breast cancer, which is life-threatening condition. She remains on anticancer therapy with adjuvant Zoladex/letrozole. Please note, this note may have been created in part by using [employer] dictation software, and therefore, it may contain typographical and/or grammatical errors inherent in a voice recognition software program Sign: Elke Flores PA-C Hematology/Oncology Sister [facility] [phone] documented in this encounter Plan of Treatment Upcoming Encounters Date Type Department Care Team (Late st Contact Info) Description 03/09/2025 2:30 PM EDT Office Visit [facility] Hematology Oncology [address] [place] [phone] Jeremías Best MD [address] [place] [address] 04/01/2025 1:00 PM EDT Office Visit Breast Care [facility] [address] [facility] [address] [place] [address] Lamonte Bradford MD [address] [facility] [place] [address] [place] [address] 04/09/2025 2:[address] [facility] [address] [facility] 2nd [place] [address] Scheduled Orders Name Type Priority Associated Diagnoses Order Schedule Vascular US duplex lower extremity venous insufficiency left Vascular Ultrasound STAT Left leg pain Malignant neoplasm of upper-outer quadrant of left breast in female, estrogen receptor positive ([facility]/HCC) Expected: 01/07/2025, Expires: 01/07/2026 documented as of this encounter Results * Vascular US duplex [...] Signed Date: 01/07/2025 16:31 ET Workstation ID: [id number] Transcribed By: Self Edit Transcribed Date: 01/07/2025 [...] Signed Date: 01/07/2025 16:31 ET Workstation ID: [id number] Transcribed By: Self Edit Transcribed Date: 01/07/2025 16:31 ET Elke WATSON CV VASCULAR PROCEDURES Final Res ult documented in this encounter Visit Diagnoses Diagnosis Left leg pain- Primary Pain in soft tissues of limb Malignant neoplasm of upper-outer quadrant of left breast in female, estrogen receptor positive (CMS/HCC) Left leg pain Pain in soft tissues of limb Malignant neoplasm of upper-outer quadrant of left breast in female, estrogen receptor positive (CMS/HCC) documented in this encounter Care Teams Clerical Assigner Relationship Specialty Start Date End Date Arleen Campbell FNP [address] [place] [phone] PCP - General Internal Medicine 08/11/21 documented as of this encounter
--- OUTSIDE RECORDS SUMMARY | 2025-01-07 16:50 | XMS_ITS ---
Author Organization [facility] Address [address] [place] [address] Phone Care Team Providers Care Electrical Test Technician Name Role Phone Arleen Campbell DIRT CONTRACTOR Primary Care Provider [phone]- [phone] Active Problems Problem Noted Date Diagnosed Date [...] treatments are documented for this patient in [facility]. Treatments may have been administered in another system.
--- OUTSIDE RECORDS SUMMARY | 2025-01-07 16:50 | XMS_ITS | Clinical Summary ---
Author Organization [facility] Address [address] [place] [address] Care Team Providers Care Mathematical Engineering Technician Name Role Phone Angelica Mcelroy MD Primary Care Provider [phone] Source Comments PLEASE NOTE, if this patient [...] by mouth every morning before breakfast 09/07/20 Active Active Problems Problem Noted Date Diagnosed Date Financial difficulties 06/10/2024 Osteopenia of multiple sites 02/10/2024 Overview (02/10/2024): 01/31/24 DEXA Invasive ductal carcinoma of left breast (HCC-CM S) 01/09/2024 Overview (09/07/2024): Also following [facility] Breast surgery [id number] 06/2024 [facility] Oncology [id number]: Pt presented in 07/2023 with a left-sided stage IIA T1bN1 invasive ductal breast cancer, ER/OR-positive, HER2-negative. S/p lumpectomy and sentinel lymph node biopsy on 08/07/2023. She presented in 08/2023 with a synchronous left-sided stage I T1aN0 invasive ductal breast cancer, ER/OR- positive, HER2-negative, diagnosed in 08/2023. S/p radiation Currently undergoing chemotherapy I recommended adjuvant hormonal therapy with a GnRH agonist and an aromatase inhibitor x5 years. tolerating Zoladex/letrozole reasonably well. She developed mild left arm lymphedema. I referred her to the [facility]. Malignant neoplasm of upper- outer [...] 25.0-29.9) 11/17/2015 Hypothyroidism 02/03/2015 Overview (09/16/2024): Following [facility] every 3 months. S/p thyroidectomy 2/[address] [facility] Diagnostic Imaging 02/24/2018 Mildly enlarged [...] and referred to Endocrine >> Thyroid USG(01/05/16, [facility]): Heterogeneous mildly enlarged thyroid gland containing multiple subcentimeter hypoechoic nodules. >> Endocrine at[facility] 10/03/16- Levothyroxine Dose changed to 25mcg qd in mid 06/2016 and she feels well. Cont same. F/u labs. Plan repeat thyroid USG in 06/2017 and f/u after U/S. Thyroid US (06/05/2017, [facility]): Enlargement of the thyroid gland, with [...] swelling 06/17/2017 05/05/2019 Overview (07/17/2017): USG at [facility] 06/10/17 show IMPRESSION: No solid or cystic mass definable in Rt breast area of concern.BI-RADS Category 1 PF, negative, clinical management of palpable abnormality recommended. No visible axillary lymph nodes and areas of indicated concern without concerning features. Immunization due 03/17/2015 05/05/2019 Immunizations Name Administration Dates Next Due Flu, [...] 1980 Tobacco Cessation Counseling (#1) 01/24/2024 019 [id number] ( season) 2024 11/10/2021, 01/09/2021, 12/24/2020 Alcohol [...] HISTORIC MAMMOGRAM 10/19/2024 3: 00 AM EST TSH W/RFLX FREE T4 Routine [...] EST) 10/19/2024 3:00 AM EST Valeria Campbell NATURALIZATION EXAMINER IMG MAMMO Final Res ult * IMAGING SCANNED DOCUMENT (10/19/2024 3:00 AM EST) 10/19/2024 3:00 AM EST Valeria Campbell NATURALIZATION EXAMINER SCAN IMAGING Final Res ult * (ABNORMAL) TSH W/RFLX FREE T4 (06/25/2024 3:05 PM EDT) TSH W/REFLEX TO FT4 0.10(L) 0.40 - 4.50 mIU/L [facility] Comment: ?Reference Range ?> or = 20 Years ??0.40-4.50 ? Ranges ?First trimester ?0.26-2.66 ?Second trimester ?? 0.55-2.73 ?Third trimester ?0.43-2.91 Blood Blood / Unknown 06/25/2024 3 :05 PM EDT 06/25/2024 3:05 PM EDT Bre Hancock PA-C LAB - BLOOD DRAW Edited Resu lt - Final [place] [facility] [address] [address], [employer] [facility] [address] [place] [address] * COMPREHENSIVE METABOLIC PANEL (06/25/2024 3:05 PM EDT) Pathologist [facility] GLUCOSE 93 65 - 99 mg/dL [facility] Comment: ?Fasting reference interval UREA NITROGEN (BUN) 21 7 - 25 mg/dL [facility] CREATININE (blood) 0.71 0.50 - 0.99 mg/dL [facility] EGFR 107 > OR = 60 mL/min/1. 73m2 [facility] BUN/CREATININE RATIO SEE NOTE: [facility] Comment: ?? Not Reported: BUN and Creatinine are within ?? reference range. ? SODIUM 141 135 - 146 mmol/L [facility] POTASSIUM 4.3 3.5 - 5.3 mmol/L [facility] CHLORIDE 103 98 - 110 mmol/L [facility] CARBON DIOXIDE 30 20 - 32 mmol/L [facility] CALCIUM 9.8 8.6 - 10.2 mg/dL [facility] PROTEIN, TOTAL 6.7 6.1 - 8.1 g/dL [employer] [facility] ALBUMIN 4.1 3.6 - 5.1 g/dL [facility] GLOBULIN 2.6 1.9 - 3.7 g/dL (calc) [facility] ALBUMIN/GLOBULI N RATIO 1.6 1.0 - 2.5 (calc) [facility] BILIRUBIN, TOTAL 0.5 0.2 - 1.2 mg/dL [facility] ALKALINE PHOSPHATASE 58 31 - 125 U/L [facility] AST 18 10 - 30 U/L [facility] ALT 19 6 - 29 U/L [facility] Blood Blood / Unknown 06/25/2024 3 :05 PM EDT 06/25/2024 3:05 PM EDT Loreiny Penalo PA-C LAB - BLOOD DRAW Final Resul t Performing Organization Address [facility]/ZIP Co de Phone Number [employer] [facility] [address] [address], [employer] [address] [address] * LIPID PANEL (01/30/2024 3:18 PM EDT) CHOLESTEROL, TOTAL 171 <200 mg/dL [facility] HDL CHOLESTEROL 54 > OR = 50 mg/dL [facility] TRIGLYCERIDES 87 <150 mg/dL [facility] LDL-CHOLESTEROL 99 99 mg/dL (calc) [facility] Comment: Reference range: <100 Desirable range <100 mg/dL for primary prevention; ?? <70 mg/dL for patients with CHD or diabetic patients with > or = 2 CHD risk factors. LDL-C is now calculated using the Jazmin calculation, which is a validated novel method providing better accuracy than the Friedewald equation in the estimation of LDL-C. Eduard SS et al. CARMITA. 2013;310(19): 4593-8588 (http://education.Crow[employer] Science/faq/KSB389) CHOL/HDLC RATIO 3.2 <5.0 (calc) [facility] NON-HDL CHOLESTEROL 117 <130 mg/dL (calc) [facility] Comment: For patients with diabetes plus 1 major ASCVD risk factor, treating to a non-HDL-C goal of <100 mg/dL (LDL-C of <70 mg/dL) is considered a therapeutic option. Blood Blood / Unknown 01/30/2024 3 :18 PM EDT 01/30/2024 3:19 PM EDT us Bre Hancock PA-C LAB - BLOOD DRAW Final Resul t Performing Organization Address City/[facility]/ZIP Co de Phone Number My [employer] [facility] [address] [address], [employer] [address] [address] * THIN PREP PAP W/RFLX HPV RNA E6/E7 (Q) (01/30/2022 2:31 PM EDT) Pathologist [facility] CLINICAL INFORMATION See Note [facility] Comment:None given LMP See Note [facility] Comment:[id number] PREV. PAP [facility] PREV. BX See Note [facility] Comment:NONE GIVEN SOURCE See Note [facility] Comment:Cervix, Endocervix STATEMENT OF ADEQUACY See Note [facility] Comment: Satisfactory for evaluation. Endocervical/transformation zone component absent. INTERPRETATION/RESU LT See Note [facility] Comment:Negative for intraep ithelial lesion or malignancy. MELTER HELPER See Note [facility] Comment: CURT, CT(ASCP) CT screening location: [address] ??[address] COMMENT [facility] CYTOLOGY Cervix uteri structure / Unknown 01/30/2022 2:31 PM EDT 01/31/2022 5:54 AM EDT Narrative [facility] - 02/01/2022 2:24 PM EDT EXPLANATORY NOTE: [...] - NO BLOOD DRAW Final Re sult [facility] [address] [place] [address], [employer] [facility] [address] [place] [address],[place] [address] * (ABNORMAL) HEPATITIS A,B,C PANEL (09/19/2020 11:49 AM EST) HEPATITIS B SURFACE ANTIBODY POSITIVE(A) NEGATIVE [facility] HEPATITIS B SURFACE ANTIGEN NEGATIVE NEGATIVE [facility] Comment: Over the counter supplements containing high doses of biotin may interfere with this assay. ??If interference is suspected, patients shoud be retested after refraining from biotin supplements for 72 hours. HEPATITIS C VIRUS DIAGNOSTIC NEGATIVE NEGATIVE [facility] HEPATITIS B CORE ANTIBODY NEGATIVE NEGATIVE [facility] HEPATITIS A ANTIBODY TOTAL POSITIVE(A) NEGATIVE [facility] Comment: Over the counter supplements containing high doses of biotin may interfere with this assay. ??If interference is suspected, patients shoud be retested after refraining from biotin supplements for 72 hours. Blood Blood / Unknown 09/19/2020 1 1:49 AM EST 09/19/2020 5:00 PM EST [facility] - 09/19/2020 7:09 PM EST [employer], [place] [address] Ceo And Founder - Tenisha Negrete MD PT ID [id number] ORD# [id number] Liana BRITO LAB - BLOOD DRAW Edited Res ult - Final Performing Organization Address City/[facility]/[place] [address], [place] [phone] * HIV-1 & HIV-2 ANTIBODIES (09/19/2020 11:49 AM EST) [facility] HIV 1 AND 2 ANTIBODY SCREEN NEGATIVE NEGATIVE [facility] Comment: This assay is a 4th generation [...] 1:49 AM EST 09/19/2020 5:00 PM EST [facility] - 09/19/2020 7:38 PM EST [employer], a member of [address] [address] Ceo And Founder - Tenisha Negrete MD PT ID [id number] ORD# [id number] Liana BRITO LAB - BLOOD DRAW Edited Res ult - Final Performing Organization Address City/[facility] Co de Phone Number [address] [address], [place] [phone] from Last 3 Months or Most Recently Relevant to Health Maintenance Insurance [id number] Care Teams Mathematical Engineering Technician Relationship Specialty Start Date End Date Angelica Mcelroy MD [address] [place] [address] PCP - General Family Medicine, Physician 07/01/24
--- OUTSIDE RECORDS SUMMARY | 2025-01-07 16:50 | XMS_ITS | Encounter Summary ---
Author Organization [facility] Address [address] [id number] Care Team Providers Care Supervisor Welding Equipment Repairer Name Role Phone Valeria Au NP Primary Care Provider [phone]- [phone] Encounter Details Date Type Department Care Team Description 10/08/2023 Social Work [facility] Oncology Services [address] [place] [phone] Todd Chang MSW Social History Tobacco Use [...] on filedocumented in this encounter Care Teams Supervisor Welding Equipment Repairer Relationship Specialty Start Date End Date Valeria Au NP [address] [place] [address] PCP - General Nurse Practitioner 07/31/23 documented as of this encounter
--- OUTSIDE RECORDS SUMMARY | 2025-01-07 16:50 | XMS_ITS | Encounter Summary ---
Author Organization [facility] Address [address] [place] [address] Care Team Providers Care Colored Leather Setter Name Role Phone Arleen Campbell Primary Care Provider [phone]- [phone] Reason for Visit * Consultation (Routine) - Authorized Specialty Diagnoses / Procedures Referred By Enrico sweet Referred To Contact Occupational Therapy Diagnoses Malignant neoplasm of upper-outer quadrant of left breast in female, estrogen receptor positive (CMS/HCC) Left shoulder pain, unspecified chronicity Lamonte Bradford MD [address] [facility] [address] [place] [address] Phone: tel: fax: [facility] Occupational Therapy [address] [address] Phone: tel: fax: Referral ID Status Reason Start Date Expiration Date Visits Requested Visits Authorized [id number] Authorized Specialty Services Required 11/19/2024 11/19/2025 20 20 Encounter Details Date Type Department Care Team (Late st Contact Info) Description 12/14/2024 3:30 PM EST Treatment [facility] [address] [address] Dede Wadsworth, OTR/L Left shoulder [...] encounter Progress Notes * JOAQUINA Purcell/Charanjit - 12/14/2024 3:30 PM EST [facility] - Outpatient OCCUPATIONAL THERAPY DAILY TREATMENT NOTE Date: 12/14/2024 Visit Number: 3 Patient Name: Abhijit Willis : 1980 Age: 44 y.o. Gender: female Diagnosis: ICD-10-CM ICD-9-CM 1. Left shoulder pain, unspecified chronicity M25.512 719.41 2. Lymphatic edema I89.0 457.1 Date of Onset: 11/19/2024 Referring Provider: Lamonte Bradford MD Insurance: Pay[place] / Plan[place] / Product Type: *No Product type* / Language ( turkmen is first language however is fluent in French Allergies: has No Known Allergies. Precautions: Left upper quadrant lymph edema precautions SUBJECTIVE Subjective Report: the pain is getting better. Sometime pain in the shoulder and close to the elbowwhen I lift my arm a certain way Pain: Localized pain mid deltoid area and biceps tendon at cubital fossa elbow OBJECTIVE Patient present with ongoing tissue tightness in right axilla/ upper arm and demo impingement with end range scaption and ER TREATMENT INTERVENTION Procedures: prone with arm hanging [...] for pain free shoulder ER Pain Reassessment: better Patient demo increased painfree ROM left shoulder ( ER - scaption) Assessment/Response To Treatment: Good I am so much better and I do the exercises at home Patient Education: Education provided: Yes ( HEP) Education Provided To: Patient utilizing Explanation and Demonstration mode(s) of education Response to Education: Good PLAN POC Development/Review: No Change in the Plan of Care; Participants: Patient Equipment Recommended: none; Equipment Provided: none GOALS Increasing painfree ROM Patient able to tolerate therex routine with increased resistance Total Treatment Time: 60 Documentation completed by JOAQUINA Purcell/Charanjit documented in this encounter Plan of Treatment Upcoming Encounters Date Type Department Care Team (Late st Contact Info) Description 03/09/2025 2:30 PM EDT Office Visit [facility] Hematology Oncology [address] [place] [phone] Jeremías Best MD [address] [place] [address] 04/01/2025 1:00 PM EDT Office Visit Breast Care [facility] [address] [facility] [address] [place] [phone] Lamonte Bradford MD [address] [facility] [address] [place] [address] 04/09/2025 2:00 PM EDT Appointment [facility] [address] [facility] [address] [place] [phone] documented as of this encounter Visit Diagnoses Diagnosis Left shoulder pain, unspecified chronicity- Primary Lymphatic edema Other noninfectious lymphedema documented in this encounter Care Teams Colored Leather Setter Relationship Specialty Start Date End Date Arleen Campbell FNP [address] [place] [phone] PCP - General Internal Medicine 08/11/21 documented as of this encounter
--- OUTSIDE RECORDS SUMMARY | 2025-01-07 16:50 | XMS_ITS | Encounter Summary ---
Author Organization [facility] Address [address] [place], [place] [id number] Care Team Providers Care Run Lead Name Role Phone Valeria Au NP Primary Care Provider +1- [phone] Encounter Details Date Type Department Care Team Description 09/17/2023 Social Work [facility] Oncology Services [address] [place] [id number] Todd Chang MSW Social History Tobacco Use [...] on filedocumented in this encounter Care Teams Run Lead Relationship Specialty Start Date End Date Valeria Au NP [address] [place] [address] PCP - General Nurse Practitioner 07/31/23 documented as of this encounter
--- OUTSIDE RECORDS SUMMARY | 2025-01-07 16:50 | XMS_ITS | Clinical Summary ---
Author Organization [facility] Address [address] [place] [id number] Care Team Providers Care Coat Padder Name Role Phone Valeria Au NP Primary Care Provider +1- [phone] Allergies No known active allergies Medications Medication [...] age to complete this topic Care Teams Coat Padder Relationship Specialty Start Date End Date Valeria Au NP [address] [place] [address] PCP - General Nurse Practitioner 07/31/23
--- OUTSIDE RECORDS SUMMARY | 2025-01-07 16:50 | XMS_ITS ---
Author Organization [facility] Address [address] [place] [address] Care Team Providers Care Wrapper Stripper Name Role Phone Valeria Au NP Primary Care Provider +1- [phone] Active Problems Problem Noted Date Diagnosed Date Malignant neoplasm of upper- outer quadrant of left breast in female, estrogen receptor positive 08/24/2023 Current Oncology Plans [facility] GOSERELIN 10.8MG (ZOLADEX)* Plan Start Date:01/31/2024 Plan Provider:Jeremías Best MD Linked Problems Malignant neoplasm of upper- outer quadrant of left breast in female, estrogen receptor positive (HCC) Treatment Medications goserelin (ZOLADEX) Past Plans ONCOLOGY TREATMENT Plan Name Start Date Discontinue Date Treatment Medications Discontinue Reason Plan Provider Cycles [facility] BCN OP TC - DOCETAXEL + CYCLOPHOSPHAMIDE [id number] (3 HRS) 202201/07/2024 albuterol (PROVENTIL)cycloPHOSph amide (CYTOXAN) [...]
[2025-01-08 08:49] LABS: Triiodothyronine T3 Total 86 ng/dL (76-181)
== END 2025-01-07 13:49 | disposition home or self-care (01) ==
LOC: HO.LAB 13:48
PROVIDERS: Visit Provider Student in an Organized Health Care Education/Training Program
DX: E89.0 Postprocedural hypothyroidism (principal); E05.20 Thyrotoxicosis with toxic multinodular goiter without thyrotoxic crisis or storm
CPT/HCPCS: 36415; 84439; 84443; 84480

== ENCOUNTER 2025-06-07 10:56 | Outpatient (REF) | payer MEDICAID, SELFPAY ==
--- OUTSIDE RECORDS SUMMARY | 2025-06-07 11:57 | XMS_ITS | Clinical Summary ---
Author Organization [facility] Address [address] [facility] [address] [place] [address] Care Team Providers Care Aircraft Mechanic Armament Name Role Phone Unavailable Primary Care Provider Unavailabl e Encounters Date Type Department Care Team Description 05/25/2025 Population Health Risk Score [facility] Care [facility] (C3) Department [address] [facility] [address] [place] [address] Provider, Population Health Generic from Last 3 Months Social History Tobacco Use Types Packs/Day Years Used Date Smoking Tobacco: Never Assessed Comments Unknown Sex and Gender Information Value Date Recorded Sex Assigned at Not on file Legal Sex Female 9:17 PM EDT Gender Identity Not on file Sexual Orientation Not on file Plan of Treatment Health Maintenance Due Date Last Done Comments CT Colonography 1980 Colonoscopy 1980 Colorectal Cancer Screening 1980 Depression Screening 1980 FIT DNA/Cologuard 1980 FIT 1980 FOBT 1980 HIV Screening 1980 SDOH Screening 1980 Sigmoidoscopy 1980 Disability Screening 1980 Alcohol/Substance Use Screening 1992 Tobacco Screening 1992 Family Planning (PISQ) 01/15/1995 HPV Vaccines (1 - 3-dose series) 01/15/1995 Hepatitis C Screening 01/15/1998 DTaP/Tdap/Td Vaccines (1 - Tdap) 01/15/1999 Hepatitis B Vaccines (1 of 3 - 19+ 3-dose series) 01/15/1999 Pap Smear 01/15/2001 Cervical Cancer Screening 01/15/2010 HPV/Cotest 01/15/2010 Mammogram 2020 COVID-19 Vaccine ( - 2023-2 5 season) 2024 Influenza Vaccine (#1) 2025 Zoster Vaccines (1 of 2) 01/15/2030 RSV Patients and Pa tients Aged 60 years or older (1 - 1-dose 75+ series) 01/15/2055 HIB Vaccines Aged Out No longer eligi ble based on patient's age to complete this topic Hepatitis A Vaccines Aged Out No long er eligible based on patient's age to complete this topic IPV Vaccines Aged Out No longer eligi ble based on patient's age to complete this topic Meningococcal B Vaccine Aged Out No l onger eligible based on patient's age to complete this topic Meningococcal Vaccine Aged Out No eddie shruthi eligible based on patient's age to complete this topic Pneumococcal Vaccine: Pediat rics (0 to 5 Years) and At-Risk Patients (6 to 49) Years Aged Out No longer eligible b ased on patient's age to complete this topic RSV under 20 months Aged Out No longe r eligible based on patient's age to complete this topic Rotavirus Vaccines Aged Out No longer eligible based on patient's age to complete this topic
--- OUTSIDE RECORDS SUMMARY | 2025-06-07 11:57 | XMS_ITS | Encounter Summary ---
Author Organization [facility] Address [address] [place], [place] [id number] Care Team Providers Care Manager Of Internal Audit Name Role Phone Valeria Au NP Primary Care Provider +1- [phone] Encounter Details Date Type Department Care Team Description 10/08/2023 Social Work [facility] Oncology Services [address] [place] [id number] Todd Chang MSW Social History Tobacco Use [...] on filedocumented in this encounter Care Teams Manager Of Internal Audit Relationship Specialty Start Date End Date Valeria Au NP [address] [place] [address] PCP - General Nurse Practitioner 07/31/23 documented as of this encounter
--- OUTSIDE RECORDS SUMMARY | 2025-06-07 11:57 | XMS_ITS | Clinical Summary ---
Author Organization [facility] Address [address] [place] [address] Care Team Providers Care Freight Car Loader Name Role Phone Adry Mancera Primary Care Provider + [phone] Source Comments PLEASE NOTE, if this patient [...] MOUTH EVERY OTHER DAY 45 Tablet 1 02/27/20 25 Active levothyroxine 75 mcg tablet Take 75 mcg by mouth once daily. 02/28/20 25 Active levothyroxine 88 mcg tabletIndications: Postoperative hypothyroidism Take 1 Tablet by mouth every morning before breakfast 09/07/20 025 Discontin ued(Quant ity/Dosag e and/or Sig change) Active Problems Problem Noted Date Diagnosed Date Financial difficulties 06/10/2024 Osteopenia of multiple sites 02/10/2024 Overview (02/10/2024): 01/31/24 DEXA Invasive ductal carcinoma of left breast ([facility]) 01/09/2024 Overview (09/07/2024): Also following [facility] Breast surgery [id number] 06/2024 [facility] Oncology [id number]: Pt presented in 07/2023 with a left-sided stage IIA T1bN1 invasive ductal breast cancer, ER/NM-positive, HER2-negative. S/p lumpectomy and sentinel lymph node biopsy on 08/07/2023. She presented in 08/2023 with a synchronous left-sided stage I T1aN0 invasive ductal breast cancer, ER/NM- positive, HER2-negative, diagnosed in 08/2023. S/p radiation Currently undergoing chemotherapy I recommended adjuvant hormonal therapy with a GnRH agonist and an aromatase inhibitor x5 years. tolerating Zoladex/letrozole reasonably well. She developed mild left arm lymphedema. I referred her to the [facility]. Malignant neoplasm of upper- outer quadrant of left breast in female, estrogen receptor positive ([facility]) 08/24/2023 Mixed hyperlipidemia 01/25/2023 Chronic midline low [...] 25.0-29.9) 11/17/2015 Hypothyroidism 02/03/2015 Overview (09/16/2024): Following [facility] every 3 months. 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 >> Endocrine [facility] 10/03/16- Levothyroxine Dose changed to 25mcg qd in mid 06/2016 and she feels well. Cont same. F/u labs. Plan repeat thyroid USG in 06/2017 and f/u after [place]. Thyroid US (06/05/2017, [facility]): Enlargement of the thyroid gland, with [...] swelling 06/17/2017 05/05/2019 Overview (07/17/2017): USG at [facility] 06/10/17 show IMPRESSION: No solid or cystic mass definable in Rt breast area of concern.BI-RADS Category 1 PF, negative, clinical management of palpable abnormality recommended. No visible axillary lymph nodes and areas of indicated concern without concerning features. Immunization due 03/17/2015 05/05/2019 Encounters Date Type Department Care Team Description 05/17/2025 Results Follow-Up [address] [phone] Adry Mancera FNP 05/11/2025 3:00 PM EDT Office Visit [address] [phone] Adry Mancera FNP from Last 3 Months Immunizations Immunization Administration Dates Next Due Flu, Cell Culture based, Mul ti Dose, 6m+, Flucelvax 07/14/2020 Flu, Cell Culture based, Pre servative Free, 6m+, Flucelvax 08/07/2022,08/19/2017 Flu, Preservative Free 07/24/2021,2018,07/04/2018,2015,11/13/2015 Hep B, Adult/Adol ([id number]-IGMOF/RECOMBIVAX-ADULT) 12/20/2015,03/17/2015,02/03/2015 Influenza, Whole 08/20/2016 MMR (MMR II/Priorix) 02/03/2015,01/03/2015 PFIZER COVID VACCINE, PURPLE CAP, 12+ 01/09/2021 ,12/24/2020 PNEUMOCOCCAL CONJUGATE PCV 2 0 (Prevnar 20) 01/24/2023 TDAP 01/03/2015 Td (adult), 5 Lf tetanus tox oid (Tenivac), preservative free 02/03/2015 Family History Medical History Relation Name Comments Arthritis Father High Cholesterol Father Hypertension Father Breast cancer Maternal Aunt Arthritis Mother Heart Problems Mother High Cholesterol Mother Hypertension Mother Relation Name Status Comments Father Alive Maternal Aunt Alive Mother Alive Social History Tobacco Use Types Packs/Day Years Used Date Smoking Tobacco: Former Cigarettes Smokeless Tobacco: Never Tobacco Cessation:Counseling Given: Not Answered Comments:quit 3 weeks ago Alcohol Use Standard Drinks/Week Comments No 0 (1 standard drink = 0.6 oz pur e alcohol) Social Connections Answer Date Recorded How often do you see or talk to people that you care about and feel close to? (For example: talking to friends on phone, visiting friends or family, going to roman catholic or club meetings) 1 06/10/2024 Financial Resource Strain Answer Date R ecorded Hard to pay for: Health insurance 2 06/10/2024 Stress Answer Date Recorded Do you feel these kinds of stress these days? 1 06/10/2024 Physical Activity Answer Date Recorded Weekly Physical Activity 2 024 Food Insecurity Answer Date Recorded Hard to pay for: Food 1 06/10/2024 Transportation Needs Answer Date Record ed Hard to pay for: Transportation 1 06/10/2024 Housing Stability Answer Date Recorded Hard to pay for: Rent/Mortgage payment 1 06/10/2024 Safety and Environment Answer Date Kenroy rded How often does anyone, inclu ding family and friends, physically hurt you? 1 06/10/2024 Utilities Answer Date Recorded Hard to pay for: Utilities 1 06/10 Employment Answer Date Recorded Are you currently employed? 1 05/2024 Comments No Sex and Gender Information Value Date Recorded Sex Assigned at Female 09/12/2017 11:42 AM PST Legal Sex Female 12:10 PM PST Gender Identity Female 09/12/2017 11:42 AM PST Sexual Orientation Straight 09/12/2017 11 :42 AM PST Last Filed Vital Signs Vital Sign Reading Time Taken Comments Blood Pressure 110/70 05/11/2025 3:30 PM EDT Pulse 76 05/11/2025 3:30 PM EDT Temperature 36.7 C (98.1 F) 05/11/2025 3:30 PM EDT Respiratory Rate 16 05/11/2025 3:30 PM EDT Oxygen Saturation 99% 05/11/2025 3:30 PM EDT Inhaled Oxygen Concentration - - Weight 60.2 kg (132 lb 12.8 oz) 05/11/2025 3:30 PM EDT Height 157.5 cm (5' 2 ) 05/11/2025 3:30 PM EDT Body Mass Index 24.29 05/11/2025 3:30 PM EDT Plan of Treatment Health Maintenance Due Date Last Done Comments HPV Screening 1980 Pap + HPV 1980 [id number] ( season) 2024 11/10/2021, 01/09/2021, 12/24/2020 CT Colonography 01/15/2025 Colonoscopy 01/15/2025 Colorectal Cancer Screening 01/15/2025 FIT/gFOBT 01/15/2025 Fecal DNA 01/15/2025 Flexible Sigmoidoscopy 01/15/2025 Cervical Cancer Screening 01/30/2025 Pap Smear 01/30/2025 01/30/2022, 11/05, 11/26/2017 Relationship Safety Screening/Counseling 06/10/2025 06/10/2024, 06/14/2023, 01/24/2023, Additional history exists Imm-Influenza (#1) 2025 07/28/2024, 1 11/11/2022, 08/07/2022, Additional history exists Breast Cancer Screening (Mammogram) 10/19/2025 10/19/2024, 10/19/2024, 08/07/2023, Additional history exists Annual Wellness (Adult): Indicated (All Coverage) 05/11/2026 05/11/2025, 01/30/2024, 01/24/2023, Additional history exists Anxiety Screening 05/11/2026 05/11/2025 Hypertension Screening (#1) 05/11/2026 TSH Monitoring 05/11/2026 05/11/2025, 06/05, 01/30/2024, Additional history exists Tobacco Screening 05/13/2026 05/13/2025, 05/05/2019 Diabetes Screening 05/11/2028 05/11/2025, 0 05/11/2025, 05/11/2025, Additional history exists Lipid Screening 05/11/2030 05/11/2025, 01/03, 01/30/2024, Additional history exists Imm-DTaP/Tdap/Td (4 - Td or Tdap) 07/28/2034 07/28/2024, 02/03/2015, 01/03/2015 Imm-Hepatitis B Discontinued 12/20/2015, 0502/2015, 02/03/2015 Vaginal Pap Discontinued 11/26/2017 HIV Screening Completed 09/19/2020, 09/04, 05/05/2019, Additional history exists Hepatitis C Screening Completed 09/19/2020 Alcohol and Drug Screen Completed 05/11/20, 01/30/2024, 01/24/2023, Additional history exists Depression Annual Screen Completed 05/11/2025 Cervical Ablation/Cold-Knife Conization Discontinued Cervical Cryotherapy Discontinued Colposcopy Discontinued Endometrial Biopsy Discontinued Excision/Leep Discontinued HPV Genotyping Discontinued Vulvoscopy Discontinued Procedures Procedure Name Priority Date/Time Associated Diagnosis Comments COMPREHENSIVE METABOLIC PANEL Routine 05/11/2025 4:14 PM EDT TSH W/RFLX FREE T4 Routine 05/11/2025 4: 14 PM EDT IRON, TIBC, FERRITIN PANEL Routine 05/11/2025 4:14 PM EDT BLOOD COUNT COMPLETE AUTOMATED Routine 05/11/2025 4:14 PM EDT IRON, TIBC, FERRITIN PANEL Routine 05/11/2025 4:12 PM EDT Routine general medical examination at a health care facility BLOOD COUNT COMPLETE AUTO&AUTO DIFRNTL WBC Routine 05/11/2025 4:12 PM EDT Routine general medical examination at a health care facility COMPREHENSIVE METABOLIC PANEL Routine 05/11/2025 4:12 PM EDT Routine general medical examination at a health care facility HEMOGLOBIN GLYCOSYLATED A1C Routine 05/11/2025 4:12 PM EDT Routine general medical examination at a health care facility LIPID PANEL Routine 05/11/2025 4:12 PM EDT Routine general medical examination at a health care facility HISTORIC MAMMOGRAM 10/19/2024 3: 00 AM EST THIN PREP PAP W/RFLX HPV RNA E6/E7 [...] Recently Relevant to Health Maintenance Results * IRON, TIBC, FERRITIN PANEL Routine (05/11/2025 4:14 PM EDT) Only the most recent of2 resultswithin the time period is included. FERRITIN 104 16 - 232 ng/mL [facility] IRON, TOTAL 122 40 - 190 mcg/dL [facility] IRON BINDING CAPACITY 361 250 - 450 mcg/dL (calc) [facility] % SATURATION 34 16 - 45 % (calc) [facility] 05/11/2025 4:14 PM EDT 05/11/2025 4:14 PM EDT Narrative [facility] - 05/12/2025 7:43 AM EDT FASTING:NO us Bre Hancock PA-C LAB - BLOOD DRAW Final Resul t [facility] [address] [place] [id number], [facility] [address] [place] [phone] * TSH W/RFLX FREE T4 Routine (05/11/2025 4:14 PM EDT) TSH W/REFLEX TO FT4 0.93 0.40 - 4.50 mIU/L [facility] Comment: Reference Range > or = 20 Years 0.40-4.50 Ranges First trimester 0.26-2.66 Second trimester 0.55-2.73 Third trimester 0.43-2.91 05/11/2025 4:14 PM EDT 05/11/2025 4:14 PM EDT Narrative [facility] - 05/12/2025 7:43 AM EDT FASTING:NO Bre Hancock PA-C LAB - BLOOD DRAW Edited Resu lt - Final Performing Organization Address City/Va Hospital/ZIP Co de Phone Number [facility] [address] [address], [employer] [facility] [address] [place] [address] * (ABNORMAL) BLOOD COUNT COMPLETE AUTOMATED Routine (05/11/2025 4:14 PM EDT) [facility] WHITE BLOOD CELL COUNT 5.5 3.8 - 10.8 Thousand/ uL [facility] RED BLOOD CELL COUNT 3.79(L) 3.80 - 5.10 Million/u L [facility] HEMOGLOBIN 12.4 11.7 - 15.5 g/dL [facility] HEMATOCRIT 38.0 35.0 - 45.0 % [facility] MCV 100.3(H) 80.0 - 100.0 fL [facility] MCH 32.7 27.0 - 33.0 pg [facility] MCHC 32.6 32.0 - 36.0 g/dL [facility] Comment: For adults, a slight decrease in the calculated MCHC value (in the range of 30 to 32 g/dL) is most likely not clinically significant; however, it should be interpreted with caution in correlation with other red cell parameters and the patient's clinical condition. RDW 11.7 11.0 - 15.0 % [facility] PLATELET COUNT 261 140 - 400 Thousand/ uL [facility] [facility] MPV 10.1 7.5 - 12.5 fL [facility] 05/11/2025 4:14 PM EDT 05/11/2025 4:14 PM EDT Narrative [facility] - 05/12/2025 7:43 AM EDT FASTING:NO us Bre Hancock PA-C LAB - BLOOD DRAW Edited Resu lt - Final Performing Organization Address City/Va Hospital/ZIP Co de Phone Number [facility] [address] [address], [facility] [address] [address] * COMPREHENSIVE METABOLIC PANEL Routine (05/11/2025 4:14 PM EDT) Only the most recent of2 resultswithin the time period is included. GLUCOSE 92 65 - 139 mg/dL [facility] Comment: Non-fasting reference interval UREA NITROGEN (BUN) 19 7 - 25 mg/dL [facility] CREATININE (blood) 0.85 0.50 - 0.99 mg/dL [facility] EGFR 86 > OR = 60 mL/min/1. 73m2 [facility] BUN/CREATININE RATIO SEE NOTE: [facility] Comment: Not Reported: BUN and Creatinine are within reference range. SODIUM 139 135 - 146 mmol/L [facility] POTASSIUM 4.6 3.5 - 5.3 mmol/L [facility] CHLORIDE 103 98 - 110 mmol/L [facility] CARBON DIOXIDE 28 20 - 32 mmol/L [facility] CALCIUM 9.6 8.6 - 10.2 mg/dL [facility] PROTEIN, TOTAL 6.6 6.1 - 8.1 g/dL [facility] ALBUMIN 4.2 3.6 - 5.1 g/dL [facility] GLOBULIN 2.4 1.9 - 3.7 g/dL (calc) [facility] ALBUMIN/GLOBULI N RATIO 1.8 1.0 - 2.5 (calc) [facility] BILIRUBIN, TOTAL 0.5 0.2 - 1.2 mg/dL [facility] ALKALINE PHOSPHATASE 57 31 - 125 U/L [facility] AST 17 10 - 35 U/L [facility] ALT 16 6 - 29 U/L [facility] 05/11/2025 4:14 PM EDT 05/11/2025 4:14 PM EDT Narrative [facility] - 05/12/2025 7:43 AM EDT FASTING:NO us Bre Hancock PA-C LAB - BLOOD DRAW Final Resul t [facility] [address] [address], [facility] [address] [place] [address] * BLOOD COUNT COMPLETE AUTO&AUTO DIFRNTL WBC Routine (05/11/2025 4:12 PM EDT) Pathologist [facility] WHITE BLOOD CELL COUNT 5.5 3.8 - 10.8 Thousand/ uL [facility] RED BLOOD CELL COUNT 3.87 3.80 - 5.10 Million/u L [facility] HEMOGLOBIN 12.5 11.7 - 15.5 g/dL [facility] HEMATOCRIT 38.7 35.0 - 45.0 % [facility] MCV 100.0 80.0 - 100.0 fL [facility] MCH 32.3 27.0 - 33.0 pg [facility] MCHC 32.3 32.0 - 36.0 g/dL [facility] Comment: For adults, a slight decrease in the calculated MCHC value (in the range of 30 to 32 g/dL) is most likely not clinically significant; however, it should be interpreted with caution in correlation with other red cell parameters and the patient's clinical condition. RDW 11.8 11.0 - 15.0 % [facility] PLATELET COUNT 266 140 - 400 Thousand/ uL [facility] MPV 10.1 7.5 - 12.5 fL [facility] ABSOLUTE NEUTROPHILS 3,240 1,500 - 7,800 cells/uL [facility] ABSOLUTE LYMPHOCYTES 1,711 850 - 3,900 cells/uL [facility] ABSOLUTE MONOCYTES 292 200 - 950 cells/uL [facility] ABSOLUTE EOSINOPHILS 231 15 - 500 cells/uL [facility] ABSOLUTE BASOPHILS 28 0 - 200 cells/uL [facility] NEUTROPHILS PCT 58.9 % [employer]UES [employer] [facility] LYMPHOCYTES 31.1 % [facility] [employer] [facility] MONOCYTES 5.3 % [facility] [employer] [facility] EOSINOPHILS 4.2 % [facility] AGNNew Health SciencesS [employer] [facility] BASOPHILS 0.5 % [employer] [facility] Blood Blood / Unknown 05/11/2025 4 :12 PM EDT 05/11/2025 4:13 PM EDT Narrative [facility] - 05/12/2025 11:47 AM EDT FASTING:NO us Adry Mancera TIE SAWYER LAB - BLOOD DRAW Edited Resu lt - Final [facility] [address] [address], [facility] [address] [address] * HEMOGLOBIN GLYCOSYLATED A1C Routine (05/11/2025 4:12 PM EDT) [facility] HEMOGLOBIN A1C 4.9 <5.7 % [facility] Comment: For the purpose of screening for the presence of diabetes: <5.7% Consistent with the absence of diabetes 5.7-6.4% Consistent with increased risk for diabetes (prediabetes) > or =6.5% Consistent with diabetes This assay result is consistent with a decreased risk of diabetes. Currently, no consensus exists regarding use of hemoglobin A1c for diagnosis of diabetes in children. According to [place] Diabetes Association (ADA) guidelines, hemoglobin A1c <7.0% represents optimal control in non- diabetic patients. Different metrics may apply to specific patient populations. Standards of Medical Care in Diabetes(ADA). Blood Blood / Unknown 05/11/2025 4 :12 PM EDT 05/11/2025 4:13 PM EDT Narrative [facility] - 05/12/2025 11:47 AM EDT FASTING:NO Adry Mancera [facility] LAB - BLOOD DRAW Final Resul t [facility] [address] [address], [facility] [address] [address] * (ABNORMAL) LIPID PANEL Routine (05/11/2025 4:12 PM EDT) [facility] CHOLESTEROL, TOTAL 169 <200 mg/dL [facility] HDL CHOLESTEROL 57 > OR = 50 mg/dL [facility] TRIGLYCERIDES 176(H) <150 mg/dL [facility] LDL-CHOLESTEROL 85 99 mg/dL (calc) [facility] Comment: Reference range: <100 Desirable range <100 mg/dL for primary prevention; <70 mg/dL for patients with CHD or diabetic patients with > or = 2 CHD risk factors. LDL-C is now calculated using the Jazmin calculation, which is a validated novel method providing better accuracy than the Friedewald equation in the estimation of LDL-C. Eduard SS et al. CARMITA. 2013;310(19): 9879-0331 (http://education.C3 Jian/faq/WLZ601) CHOL/HDLC RATIO 3.0 <5.0 (calc) [facility] NON-HDL CHOLESTEROL 112 <130 mg/dL (calc) [facility] Comment: For patients with diabetes plus 1 major ASCVD risk factor, treating to a non-HDL-C goal of <100 mg/dL (LDL-C of <70 mg/dL) is considered a therapeutic option. Blood Blood / Unknown 05/11/2025 4 :12 PM EDT 05/11/2025 4:13 PM EDT Narrative [facility] - 05/12/2025 11:47 AM EDT FASTING:NO Adry Mancera TIE [facility]ER LAB - BLOOD DRAW Final Resul t [facility] [address] [address], [facility] [address] [place] [address] * HISTORIC MAMMOGRAM (10/19/2024 3:00 AM EST) 10/19/2024 3:00 AM EST Valeria Campbell [facility] IMG MAMMO Final Res ult * THIN PREP PAP W/RFLX HPV RNA E6/E7 (Q) (01/30/2022 2:31 PM EDT) Pathologist [facility] CLINICAL INFORMATION See Note [facility] Comment:None given LMP See Note [facility] Comment:[id number] PREV. PAP [facility] PREV. BX See Note [facility] Comment:NONE GIVEN SOURCE See Note [facility] Comment:Cervix, Endocervix STATEMENT OF ADEQUACY See Note [facility] Comment: Satisfactory for evaluation. Endocervical/transformation zone component absent. INTERPRETATION/RESU LT See Note [facility] Comment:Negative for intraep ithelial lesion or malignancy. [employer]CHO[employer] PE TEACHER See Note [facility] Comment: CURT, CT(ASCP) CT screening location: [address] [address] COMMENT [facility] CYTOLOGY Cervix uteri structure / Unknown 01/30/2022 2:31 PM EDT 01/31/2022 5:54 AM EDT Narrative [facility] - 02/01/2022 2:24 PM EDT EXPLANATORY NOTE: [...] clinical information. Bre Hancock PA-C LAB - PATHOLOGY AND CYTOLOGY AMBULATORY Final Result [facility] [address] [address], [facility] [address] [address] * (ABNORMAL) HEPATITIS A,B,C PANEL (09/19/2020 11:49 AM EST) HEPATITIS B SURFACE ANTIBODY POSITIVE(A) NEGATIVE [facility] HEPATITIS B SURFACE ANTIGEN NEGATIVE NEGATIVE [facility] Comment: Over the counter supplements containing high doses of biotin may interfere with this assay. If interference is suspected, patients shoud be retested after refraining from biotin supplements for 72 hours. HEPATITIS C VIRUS DIAGNOSTIC NEGATIVE NEGATIVE [facility] [facility] HEPATITIS B CORE ANTIBODY NEGATIVE NEGATIVE [facility] HEPATITIS A ANTIBODY TOTAL POSITIVE(A) NEGATIVE [facility] Comment: Over the counter supplements containing high doses of biotin may interfere with this assay. If interference is suspected, patients shoud be retested after refraining from biotin supplements for 72 hours. Blood Blood / Unknown 09/19/2020 1 1:49 AM EST 09/19/2020 5:00 PM EST Narrative [facility] - 09/19/2020 7:09 PM EST [employer], a member of [place] [address] [employer] [place] Business Representative - Tenisha Negrete [place] [id number] ORD# [id number] Liana BRITO LAB - BLOOD DRAW Edited Res ult - Final [address] [address], [place] [phone] * HIV-1 & HIV-2 ANTIBODIES (09/19/2020 11:49 AM EST) [facility] HIV 1 AND 2 ANTIBODY SCREEN NEGATIVE NEGATIVE [facility] Comment: This assay is a 4th generation assay allowing for earlier detection of HIV infection by detecting the presence of the HIV-1 p24 antigen as well as the traditional antibodies to HIV type 1 (including group O) and type 2. Use of a 4th generation assay is the current CDC recommendation for HIV screening. Blood Blood / Unknown 09/19/2020 1 1:49 AM EST 09/19/2020 5:00 PM EST Narrative [facility] - 09/19/2020 7:38 PM EST [employer], a member of [address] [address] [employer] [place] Business Representative - Tenisha Negrete MD [place] ID [id number] ORD# [id number] Liana BRITO LAB - BLOOD DRAW Edited Res ult - Final Performing Organization Address City/Va Hospital/ZIP Co de Phone Number [address] [address], [place] [phone] from Last 3 Months or Most Recently Relevant to Health Maintenance Insurance [id number] Care Teams Freight Car Loader Relationship Specialty Start Date End Date Adry Mancera FNP [address] [place] [address] PCP - General Family Medicine, NATURE PHOTOGRAPHER 04/28/25
--- OUTSIDE RECORDS SUMMARY | 2025-06-07 11:57 | XMS_ITS ---
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, estrogen receptor positive ([facility]/HCC V24, [facility]/HCC V28) 08/08/2024 Hypothyroid Current Oncology Plans GOSERELIN ( ZOLADEX ) 10.8 MG EVERY 12 WEEKS* Plan Start Date:10/04/2024 Plan Provider:Mili Mayen DO Linked Problems Malignant neoplasm of upper- outer quadrant of left breast in female, estrogen receptor positive (CMS/HCC V24, CMS/HCC V28) Treatment Medications goserelin (ZOLADEX) GOSERELIN ( ZOLADEX ) 10.8 MG EVERY 12 WEEKS* Plan Start Date:10/09/2024 Plan Provider:Jeremías Best MD Linked Problems Malignant neoplasm of upper- outer quadrant of left breast in female, estrogen receptor positive (CMS/HCC V24, CMS/HCC V28) Treatment Medications goserelin (ZOLADEX) Past Plans No past plan information found. Radiation Treatments * No radiation treatments are documented for this patient in [facility]. Treatments may have been administered in another system. Resolved Problems Problem Noted Date Diagnosed Date Resolved Date Class 2 obesity due to exces s calories with body mass index (BMI) of 35.0 to 35.9 in adult 08/08/2024 04/14/2025
== END 2025-06-07 10:57 | disposition home or self-care (01) ==
LOC: HO.LAB 10:56
PROVIDERS: Visit Provider Student in an Organized Health Care Education/Training Program
DX: Z13.89 Encounter for screening for other disorder (principal)

== ENCOUNTER 2025-06-08 09:00 | Outpatient (REF) | payer MEDICAID, SELFPAY ==
--- OUTSIDE RECORDS SUMMARY | 2025-06-08 09:22 | XMS_ITS | Clinical Summary ---
Author Organization [facility] Address [address] [place] [address] Care Team Providers Care Drafter Structural Name Role Phone Adry Mancera Primary Care Provider + [phone] Source Comments PLEASE NOTE, if this patient [...] DEXA Invasive ductal carcinoma of left breast ([facility]) 01/09/2024 Overview (09/07/2024): Also following [facility] Breast surgery [id number] 06/2024 [facility] Oncology [id number]: Pt presented in 07/2023 with a left-sided stage IIA T1bN1 invasive ductal breast cancer, ER/MO-positive, HER2-negative. S/p lumpectomy and sentinel lymph node biopsy on 08/07/2023. She presented in 08/2023 with a synchronous left-sided stage I T1aN0 invasive ductal breast cancer, ER/MO- positive, HER2-negative, diagnosed in 08/2023. S/p radiation Currently undergoing chemotherapy I recommended adjuvant hormonal therapy with a GnRH agonist and an aromatase inhibitor x5 years. tolerating Zoladex/letrozole reasonably well. She developed mild left arm lymphedema. I referred her to the [facility]. Malignant neoplasm of upper- outer quadrant of left breast in female, estrogen receptor positive ([facility]) 08/24/2023 Mixed hyperlipidemia 01/25/2023 Chronic midline low [...] 25.0-29.9) 11/17/2015 Hypothyroidism 02/03/2015 Overview (09/16/2024): Following [facility] every 3 months. 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 >> Endocrine [facility] 10/03/16- Levothyroxine Dose changed to 25mcg qd in mid 06/2016 and she feels well. Cont same. F/u labs. Plan repeat thyroid USG in 06/2017 and f/u after [place]. Thyroid US (06/05/2017, [facility]): Enlargement of the thyroid gland, with [...] swelling 06/17/2017 05/05/2019 Overview (07/17/2017): USG at [facility] 06/10/17 show IMPRESSION: No solid or cystic mass definable in Rt breast area of concern.BI-RADS Category 1 PF, negative, clinical management of palpable abnormality recommended. No visible axillary lymph nodes and areas of indicated concern without concerning features. Immunization due 03/17/2015 05/05/2019 Encounters Date Type Department Care Team Description 05/17/2025 Results Follow-Up [address] [phone] Adry Mancera FNP 05/11/2025 3:00 PM EDT Office Visit [address] [phone] Adry Mancera FNP from Last 3 Months Immunizations Immunization Administration Dates Next Due Flu, Cell Culture based, Mul ti Dose, 6m+, Flucelvax 07/14/2020 Flu, Cell Culture based, Pre servative Free, 6m+, Flucelvax 08/07/2022,08/19/2017 Flu, Preservative Free 07/24/2021,2018,07/04/2018,2015,11/13/2015 Hep B, Adult/Adol (AEBMVQB-N-RIOCO/RECOMBIVAX-ADULT) 12/20/2015,03/17/2015,02/03/2015 Influenza, Whole 08/20/2016 MMR (MMR II/Priorix) [...] phone, visiting friends or family, going to lutheran or club meetings) 1 06/10/2024 Financial Resource [...] HPV Screening 1980 Pap + HPV 1980 [id number] ( season) 2024 11/10/2021, 01/09/2021, 12/24/2020 CT [...] included. FERRITIN 104 16 - 232 ng/mL [facility] IRON, TOTAL 122 40 - 190 mcg/dL [facility] IRON BINDING CAPACITY 361 250 - 450 mcg/dL (calc) [facility] % SATURATION 34 16 - 45 % (calc) [facility] 05/11/2025 4:14 PM EDT 05/11/2025 4:14 PM EDT Narrative [facility] [employer] - 05/12/2025 7:43 AM EDT FASTING:NO us Bre Hancock PA-C LAB - BLOOD DRAW Final Resul t [facility] [address] [place] [address], [facility] [address] [place] [phone] * TSH W/RFLX FREE T4 Routine (05/11/2025 4:14 PM EDT) TSH W/REFLEX TO FT4 0.93 0.40 - 4.50 mIU/L [facility] Comment: Reference Range > or = 20 Years 0.40-4.50 Ranges First trimester 0.26-2.66 Second trimester 0.55-2.73 Third trimester 0.43-2.91 05/11/2025 4:14 PM EDT 05/11/2025 4:14 PM EDT Narrative [facility] [employer] - 05/12/2025 7:43 AM EDT FASTING:NO Bre Hancock PA-C LAB - BLOOD DRAW Edited Resu lt - Final Performing Organization Address City/[facility]/ZIP Co de Phone Number [facility] [address] [address], [employer] [facility] [address] [place] [address] * (ABNORMAL) BLOOD COUNT COMPLETE AUTOMATED Routine (05/11/2025 4:14 PM EDT) [facility] WHITE BLOOD CELL COUNT 5.5 3.8 - 10.8 Thousand/ uL [facility] RED BLOOD CELL COUNT 3.79(L) 3.80 - 5.10 Million/u L [facility] HEMOGLOBIN 12.4 11.7 - 15.5 g/dL [facility] HEMATOCRIT 38.0 35.0 - 45.0 % [facility] MCV 100.3(H) 80.0 - 100.0 fL [facility] MCH 32.7 27.0 - 33.0 pg [facility] MCHC 32.6 32.0 - 36.0 g/dL [facility] Comment: For adults, a slight decrease in the calculated MCHC value (in the range of 30 to 32 g/dL) is most likely not clinically significant; however, it should be interpreted with caution in correlation with other red cell parameters and the patient's clinical condition. RDW 11.7 11.0 - 15.0 % [facility] PLATELET COUNT 261 140 - 400 Thousand/ uL [facility] Anctu MPV 10.1 7.5 - 12.5 fL [facility] 05/11/2025 4:14 PM EDT 05/11/2025 4:14 PM EDT Narrative [facility] - 05/12/2025 7:43 AM EDT FASTING:NO us Bre Hancock PA-C LAB - BLOOD DRAW Edited Resu lt - Final Performing Organization Address City/[facility]/ZIP Co de Phone Number [facility] [address] [address], [facility] [address] [address] * COMPREHENSIVE METABOLIC PANEL Routine (05/11/2025 4:14 PM EDT) Only the most recent of2 resultswithin the time period is included. GLUCOSE 92 65 - 139 mg/dL [facility] Comment: Non-fasting reference interval UREA NITROGEN (BUN) 19 7 - 25 mg/dL [facility] CREATININE (blood) 0.85 0.50 - 0.99 mg/dL [facility] EGFR 86 > OR = 60 mL/min/1. 73m2 [facility] BUN/CREATININE RATIO SEE NOTE: [facility] Comment: Not Reported: BUN and Creatinine are within reference range. SODIUM 139 135 - 146 mmol/L [facility] POTASSIUM 4.6 3.5 - 5.3 mmol/L [facility] CHLORIDE 103 98 - 110 mmol/L [facility] CARBON DIOXIDE 28 20 - 32 mmol/L [facility] CALCIUM 9.6 8.6 - 10.2 mg/dL [facility] PROTEIN, TOTAL 6.6 6.1 - 8.1 g/dL [facility] ALBUMIN 4.2 3.6 - 5.1 g/dL [facility] GLOBULIN 2.4 1.9 - 3.7 g/dL (calc) [facility] ALBUMIN/GLOBULI N RATIO 1.8 1.0 - 2.5 (calc) [facility] BILIRUBIN, TOTAL 0.5 0.2 - 1.2 mg/dL [facility] ALKALINE PHOSPHATASE 57 31 - 125 U/L [facility] AST 17 10 - 35 U/L [facility] ALT 16 6 - 29 U/L [facility] 05/11/2025 4:14 PM EDT 05/11/2025 4:14 PM EDT Narrative [facility] - 05/12/2025 7:43 AM EDT FASTING:NO us Bre Hancock PA-C LAB - BLOOD DRAW Final Resul t [facility] [address] [address], [facility] [address] [place] [address] * BLOOD COUNT COMPLETE AUTO&AUTO DIFRNTL WBC Routine (05/11/2025 4:12 PM EDT) Pathologist [facility] WHITE BLOOD CELL COUNT 5.5 3.8 - 10.8 Thousand/ uL [facility] RED BLOOD CELL COUNT 3.87 3.80 - 5.10 Million/u L [facility] HEMOGLOBIN 12.5 11.7 - 15.5 g/dL [facility] HEMATOCRIT 38.7 35.0 - 45.0 % [facility] MCV 100.0 80.0 - 100.0 fL [facility] MCH 32.3 27.0 - 33.0 pg [facility] [facility] MCHC 32.3 32.0 - 36.0 g/dL [facility] Comment: For adults, a slight decrease in the calculated MCHC value (in the range of 30 to 32 g/dL) is most likely not clinically significant; however, it should be interpreted with caution in correlation with other red cell parameters and the patient's clinical condition. RDW 11.8 11.0 - 15.0 % [facility] [facility] PLATELET COUNT 266 140 - 400 Thousand/ uL [facility] MPV 10.1 7.5 - 12.5 fL [facility] ABSOLUTE NEUTROPHILS 3,240 1,500 - 7,800 cells/uL [facility] ABSOLUTE LYMPHOCYTES 1,711 850 - 3,900 cells/uL [facility] ABSOLUTE MONOCYTES 292 200 - 950 cells/uL [facility] ABSOLUTE EOSINOPHILS 231 15 - 500 cells/uL [facility] ABSOLUTE BASOPHILS 28 0 - 200 cells/uL [facility] NEUTROPHILS PCT 58.9 % [employer] [facility] LYMPHOCYTES 31.1 % [facility] AGN[employer] [facility] MONOCYTES 5.3 % [facility] [email or web address] [facility] EOSINOPHILS 4.2 % [facility] AGNMito[employer]dS [employer] [facility] BASOPHILS 0.5 % [employer] DIAG [employer] [facility] Blood Blood / Unknown 05/11/2025 4 :12 PM EDT 05/11/2025 4:13 PM EDT Narrative [facility] - 05/12/2025 11:47 AM EDT FASTING:NO us Adry Mancera RECORD FILING CLERK LAB - BLOOD DRAW Edited Resu lt - Final [facility] [address] [address], [facility] [address] [address] * HEMOGLOBIN GLYCOSYLATED A1C Routine (05/11/2025 4:12 PM EDT) [facility] HEMOGLOBIN A1C 4.9 <5.7 % [facility] Comment: For the purpose of screening for the presence of diabetes: <5.7% Consistent with the absence of diabetes 5.7-6.4% Consistent with increased risk for diabetes (prediabetes) > or =6.5% Consistent with diabetes This assay result is consistent with a decreased risk of diabetes. Currently, no consensus exists regarding use of hemoglobin A1c for diagnosis of diabetes in children. According to [place] Diabetes Association (ADA) guidelines, hemoglobin A1c <7.0% represents optimal control in non- diabetic patients. Different metrics may apply to specific patient populations. Standards of Medical Care in Diabetes(ADA). Blood Blood / Unknown 05/11/2025 4 :12 PM EDT 05/11/2025 4:13 PM EDT Narrative [facility] - 05/12/2025 11:47 AM EDT FASTING:NO Adry Mancera [facility] LAB - BLOOD DRAW Final Resul t [facility] [address] [address], [facility] [address] [address] * (ABNORMAL) LIPID PANEL Routine (05/11/2025 4:12 PM EDT) [facility] CHOLESTEROL, TOTAL 169 <200 mg/dL [facility] HDL CHOLESTEROL 57 > OR = 50 mg/dL [facility] TRIGLYCERIDES 176(H) <150 mg/dL [facility] LDL-CHOLESTEROL 85 99 mg/dL (calc) [facility] Comment: Reference range: <100 Desirable range <100 mg/dL for primary prevention; <70 mg/dL for patients with CHD or diabetic patients with > or = 2 CHD risk factors. LDL-C is now calculated using the Jazmin calculation, which is a validated novel method providing better accuracy than the Friedewald equation in the estimation of LDL-C. Eduard SS et al. CARMITA. 2013;310(19): 4621-9106 (http://education.Magnitude Software/faq/VEK085) CHOL/HDLC RATIO 3.0 <5.0 (calc) [facility] NON-HDL CHOLESTEROL 112 <130 mg/dL (calc) [facility] Comment: For patients with diabetes plus 1 major ASCVD risk factor, treating to a non-HDL-C goal of <100 mg/dL (LDL-C of <70 mg/dL) is considered a therapeutic option. Blood Blood / Unknown 05/11/2025 4 :12 PM EDT 05/11/2025 4:13 PM EDT Narrative [facility] - 05/12/2025 11:47 AM EDT FASTING:NO Adry Mancera RECORD FILING CLERK LAB - BLOOD DRAW Final Resul t [facility] [address] [address], [facility] [address] [place] [address] * HISTORIC MAMMOGRAM (10/19/2024 3:00 AM EST) 10/19/2024 3:00 AM EST Valeria Campbell RECORD FILING CLERK IMG MAMMO Final Res ult * THIN PREP PAP W/RFLX HPV RNA E6/E7 (Q) (01/30/2022 2:31 PM EDT) Pathologist [facility] CLINICAL INFORMATION See Note [facility] Comment:None given LMP See Note [facility] Comment:[id number] PREV. PAP [facility] PREV. BX See Note [facility] Comment:NONE GIVEN SOURCE See Note [facility] Comment:Cervix, Endocervix STATEMENT OF ADEQUACY See Note [facility] Comment: Satisfactory for evaluation. Endocervical/transformation zone component absent. INTERPRETATION/RESU LT See Note [facility] Comment:Negative for intraep ithelial lesion or malignancy. RETAIL OPERATIONS SPECIALIST See Note [employer] Comment: CURT, CT(ASCP) CT screening location: [address] [address] COMMENT [facility] CYTOLOGY Cervix uteri structure / Unknown 01/30/2022 2:31 PM EDT 01/31/2022 5:54 AM EDT Narrative [facility] - 02/01/2022 2:24 PM EDT EXPLANATORY NOTE: [...] - PATHOLOGY AND CYTOLOGY AMBULATORY Final Result [facility] [address] [address], [facility] [address] [address] * (ABNORMAL) HEPATITIS A,B,C PANEL (09/19/2020 11:49 AM EST) HEPATITIS B SURFACE ANTIBODY POSITIVE(A) NEGATIVE [facility] HEPATITIS B SURFACE ANTIGEN NEGATIVE NEGATIVE [facility] Comment: Over the counter supplements containing high doses of biotin may interfere with this assay. If interference is suspected, patients shoud be retested after refraining from biotin supplements for 72 hours. HEPATITIS C VIRUS DIAGNOSTIC NEGATIVE NEGATIVE [facility] HEPATITIS B CORE ANTIBODY NEGATIVE NEGATIVE [facility] HEPATITIS A ANTIBODY TOTAL POSITIVE(A) NEGATIVE [facility] Comment: Over the counter supplements containing high doses of biotin may interfere with this assay. If interference is suspected, patients shoud be retested after refraining from biotin supplements for 72 hours. Blood Blood / Unknown 09/19/2020 1 1:49 AM EST 09/19/2020 5:00 PM EST Narrative [facility] - 09/19/2020 7:09 PM EST [employer], a member of [employer] [address] Pinball Machine Repairer - Tenisha Negrete MD [place] ID [id number] ORD# [id number] L[facility] BRIT[facility] LAB - BLOOD DRAW Edited Res ult - Final [address] [address], [place] [phone] * HIV-1 & HIV-2 ANTIBODIES (09/19/2020 11:49 AM EST) [facility] HIV 1 AND 2 ANTIBODY SCREEN NEGATIVE NEGATIVE [facility] Comment: This assay is a 4th [...] EST 09/19/2020 5:00 PM EST Narrative [facility] - 09/19/2020 7:38 PM EST [employer], a member of [address] [address] Pinball Machine Repairer - Tenisha Negrete MD PT ID [id number] ORD# [id number] [facility] BR[facility] LAB - BLOOD DRAW Edited Res ult - Final Performing Organization Address City/[facility]/ZIP Co de Phone Number [address] [address], [place] [phone] from Last 3 Months or Most Recently Relevant to Health Maintenance Insurance [id number] Care Teams Drafter Structural Relationship Specialty Start Date End Date Adry Mancera FNP [address] [place] [address] PCP - General Family Medicine, INVESTMENT BANKER 04/28/25
--- OUTSIDE RECORDS SUMMARY | 2025-06-08 09:22 | XMS_ITS | Encounter Summary ---
Author Organization [facility] Address [address] [place], [place] [id number] Care Team Providers Care Vp Global Marketing [employer] Name Role Phone Valeria Au NP Primary Care Provider [phone] Encounter Details Date Type Department Care Team Description 10/08/2023 Social Work [facility] Oncology Services [address] [place] [id number] Todd Chang MSW Social History Tobacco Use [...] on filedocumented in this encounter Care Teams Vp [employer] Relationship Specialty Start Date End Date Valeria Au NP [address] [place] [address] PCP - General Nurse Practitioner 07/31/23 documented as of this encounter
--- OUTSIDE RECORDS SUMMARY | 2025-06-08 09:22 | XMS_ITS | Clinical Summary ---
Author Organization [employer] [facility] Address [address] [facility] 7t [place] [address] Care Team Providers Care Resident Manager Name Role Phone Unavailable Primary Care Provider Unavailabl e Encounters Date Type Department Care Team Description 05/25/2025 Population Health Risk Score [facility] (C3) Department [address] [facility] [address] [place] [address] Provider, Population Health Generic from [...]
--- OUTSIDE RECORDS SUMMARY | 2025-06-08 09:22 | XMS_ITS ---
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 Treatments may have been administered in another system. Resolved Problems Problem Noted Date Diagnosed Date Resolved Date Class 2 obesity due to exces s calories with body mass index (BMI) of 35.0 to 35.9 in adult 08/08/2024 04/14/2025
[2025-06-08 10:11] LABS: Albumin Level 4.3 g/dL (3.5-5.0); Calcium 9.4 mg/dL (8.4-10.2)
[2025-06-08 10:37] LABS: Free T4 (Free Thyroxine) 1.12 ng/dL (0.71-1.85); Thyroid Stimulating Hormone 2.37 uIU/mL (0.32-4.0)
[2025-06-09 20:08] LABS: Calcium, Random Urine 16.0 mg/dL
[2025-06-11 14:13] LABS: Collagen Type I C-Telopeptide 1031 pg/mL (50-465)
== END 2025-06-08 09:01 | disposition home or self-care (01) ==
LOC: HO.LAB 09:00
PROVIDERS: PCP Family Medicine; Visit Provider Student in an Organized Health Care Education/Training Program
DX: M85.89 Other specified disorders of bone density and structure, multiple sites (principal); E89.0 Postprocedural hypothyroidism; Z79.811 Long term (current) use of aromatase inhibitors
CPT/HCPCS: 36415; 82040; 82306; 82310; 82523; 82570; 84075; 84439; 84443

== ENCOUNTER 2025-06-14 14:13 | Outpatient (AMB) | payer MEDICAID, SELFPAY ==
[2025-06-14 14:15] VITALS: BP 90/54; PULSE 98; O2SAT 99; BMI 24.7
--- NOTE | 2025-06-14 14:15 | A.OFFVIS_ITS ---
Vital Signs 3 06/14/25 14:15 Height 5 ft 2 in Weight 134 lb 14.766 oz BMI 24.7 BP 90/54 L Blood Pressure Location Rt brachial Position Sitting Pulse 98 Pulse Source Pulse Oximeter Pulse Oximetry (%) 99 Oxygen Delivery Method Room Air Intake Visit Reasons: Aromatase inhibitor use Intake Note: Patient present today for Aromatase inhibitor use office visit. Cyber Threat Analyst Required: No Accompanied by: Mother Allergies No Known Allergies Allergy (Verified 06/14/25 14:19) Medication List - Last Reconciled 06/14/25 by Teresa Cristina MD acetaminophen 1,000 mg PO TID PRN alendronate (Fosamax) 70 mg PO QWEEK calcium carbonate-vitamin D3 600 mg-20 mcg (800 unit) (Caltrate with Vitamin D3) 1 tab PO DAILY cholecalciferol (vitamin D3) 25 mcg PO DAILY ferrous sulfate 325 mg PO Q OTHER DAY letrozole 2.5 mg PO DAILY levothyroxine 75 mcg PO DAILY mecobalamin (vitamin B12) 2,500 mcg PO HPI Comments Details: 44 YO F coming in today for follow up of postsurgical hypothyroidism after total thyroidectomy on 09/02/[address] Vince Rosario at [facility] for toxic MNG . And osteopenia with aromatase inhibitor therapy for breast cancer. History of toxic multinodular goiter Postsurgical hypothyroidism She has a history of hyperthyroidism since 2008 likely due to diffuse toxic goiter, apparently diagnosed when she lived in [place], no details available. Per patient she used to be on antithyroid medication for years (? PTU), then [place] and was started on methimazole but developed some side effects and stopped in September 2022. Labs from February 2023 showed suppressed TSH 0.06 with normal free T4 of 0.93. Subsequently labs in June 2023 again showed suppressed TSH of 0.08, free T4 0.96, free T3 3.1 (off methimazole). Thyroid ultrasound 03/04/2023 showed diffusely enlarged hypervascular thyroid gland containing multiple around 1 cm or less nodules including dominant 1.2 cm TR 2 left midpole nodule, not meeting criteria for biopsy. She was having some degree of compressive symptoms with dysphagia to solids, neck pressure, occasional choking. She was subsequently referred to Endocrine surgery and saw Dr. Vince Rosario at [facility] on 09/25/2023 for evaluation of toxic multinodular goiter for total thyroidectomy. She was also in in the interim diagnosed with breast cancer status post left breast lumpectomy August 2023 status post chemotherapy completed November 2023 followed by radiation therapy finished January 2024. Sees Dr. Macrina Best at [facility] and Dr Addison Bradford for her oncology care. Hence total thyroidectomy was subsequently delayed. Status post total thyroidectomy 09/02/[address] Vince Rosario at [facility] in [facility], along with right inferior parathyroidectomy with reimplantation of the parathyroid in the left SCM. 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 Currenlty taking levothyroxine daily , good adherence , takes between 9 AM to 10 AM and waits an hour between eating or drinking coffee. Fatigue improved since surgery. Palpitations improved. Bowel movements regular. Lost 70 lbs after gastric sleeve surgery in [place] in March 2023. Continues to lose weight. Hasnt had period for one year since chemo, she is on depot progesterone every 3 months Patient denies any difficulty swallowing, pain on swallowing or voice changes or difficulty breathing. Denies having ever used lithium, amiodarone or biotin supplements. Patient denies any family history of thyroid cancer or thyroid disease. Labs from 10/21/2024 showed TSH still low at 0.08, free T4 1.30, we had asked her to repeat another set of labs in 6 weeks to see if her TSH is lagging behind and improves without any changes to levothyroxine. However no set of repeat labs done. Reports fatigue , tirendess , plapitations , and gained weight. Labs from 12/02/2024 showed TSH was still low at 0.06, free T4 normal, levothyroxine was reduced from 88 mcg daily to 75 mcg daily. Interval history Continues on levothyroxine 75 mcg daily Normal TSH and free T4 from June 2025. Osteopenia Bone health on aromatase inhibitor For history of breast cancer, starting letrozole February 2024 with plan for 5 years Denies any fracture history, denies history of bone density evaluation Vitamin D 2000 units daily, taking calcium 2 pills daily not sure about the dose Milk: daily one bottle every day (a protein shake), a cup of milk wiht oats daily She vapes , has prior history of tobacco use Denies any alcohol use Has had cortisone shots in her hip a few years ago, 2 injections, denies any long-term glucocorticoid therapy Has had chemotherapy for left breast cancer in 01/2024 No history of antiseizure medications No PPI use. Does have history of hyperthyroidism due to toxic multinodular goiter as described above status post total thyroidectomy August 2024 now with postsurgical hypothyroid Mother has history of hip fracture On progesterone shot every 3 months DEXA scan 11/10/2024 showed T-score of-1.6 and Z-score of -1.4 of the lumbar spine, T-score of-0.7 at the left total hip and T-score of-1.1 at the left femoral neck. Lumbar spine and femoral neck consistent with osteopenia. While patient is young so we have to go by Z scores, she is meeting criteria for treatment based on the fact that her T-score is less than -1.5, she has a history of smoking cigarettes, and parent has a history of fragility fracture. 10/30/2024 CTX elevated at 1019. Normal calcium, vitamin-D of 50.8, normal kidney function, Labs from November 2024 showed Secondary workup for osteoporosis unremarkable with normal 24 hour urine calcium levels, normal SPEP. Normal vitamin-D and calcium and kidney function. Interval history Started on Fosamax 70 mg weekly in December 2024 Currently taking Vitamin D 1000 units x2 daily cakcium 600 mg daily plus 400 units of D plus 200 units of D [facility] No fractures or falls Physical exam General: sitting comfortably in no acute distress HEENT: normocephalic/atraumatic,moist oral mucosa Neck: supple, symmetrical, well healing surgical scar , no dorsocervical or supraclavicular fat pads Cardiac: normal heart sounds Pulm: normal breath sounds B/L, no added breath sounds Abd: not distended, no tenderness Extremities: no edema, no signs of myxedema Laboratory Tests 02/08/23 06/07/23 13:33 13:15 TSH 0.06 L 0.08 L Free T4 0.93 0.96 Free T3 3.3 3.1 Laboratory Tests 10/21/24 10/30/24 11:27 08:38 Sodium 142 Potassium 3.8 Creatinine 0.72 Estimated GFR > 60 Calcium 9.1 9.6 Alk Phos Bone Specific 12.9 Albumin 4.1 4.2 Collgn I C-Telopeptide 1019 H 25-OH Vitamin D Total 50.8 TSH 0.08 L Free T4 1.30 Laboratory Tests 10/30/24 12/01/24 12/08/24 08:38 14:05 09:30 Creatinine 0.72 Estimated GFR > 60 Calcium 9.7 Total Protein (PEP) 7.0 Albumin 4.2 Albumin (PEP) 4.3 Dzggi-1-Rcrhijcjw 0.3 Kliks-1-Qtcllxuty 0.7 Ryng-6-Zbtngiwr 0.4 Magx-4-Htbrelzd 0.4 Gamma Globulins 1.0 Collgn I C-Telopeptide 1019 H TSH 0.06 L Free T4 1.24 Total T3 103 Ur 24 Hour Volume 575 Ur Creatinine mg/dL 94.54 Ur Creatinine 24 Hour 0.5 L Ur Calcium 24 Hr 142 Calcium/Creat 24 Hr 268 Laboratory Tests 10/30/24 01/07/25 06/08/25 08:38 13:56 09:15 Calcium 9.4 Alk Phos Bone Specific 12.9 10.0 Albumin 4.3 Collgn I C-Telopeptide 1019 H 1031 H 25-OH Vitamin D Total 67.5 TSH 1.02 2.37 Free T4 1.00 1.12 Total T3 86 EXAMINATION: Dual-Energy X-ray Absorptiometry - Bone Density Study 11/10/24 HISTORY: Estrogen deficiency TECHNIQUE: [employer] Dual energy absorptiometry (DEXA) of the lumbar spine, total left hip, and femoral neck was performed. COMPARISON: There are no prior studies for comparison. FINDINGS: The bone mineral density of the lumbar spine is 0.986 with a T-score of -1.6, and a Z-score of -1.4. The bone mineral density of the left total hip is 0.921 with a T-score of -0.7, and a Z-score of 0.2. The bone mineral density of the left femoral neck is 0.880 with a T-score of -1.1, and a Z-score of 0.4. FRACTURE RISK: The FRAX index suggests a risk of major osteoporotic fracture of 2.8%, and of hip fracture 0.4%. MM/XR DEXA axial skeleton IMPRESSION: Based on bone mineral density, and according to World Health Organization (WHO) criteria, the diagnosis is consistent with osteopenia. US THYROID 03/04/23 CLINICAL INFORMATION: Thyrotoxicosis with toxic multinodular goiter without thyrotoxic crisis or storm. COMPARISON: None available. TECHNIQUE: Linear transducer grayscale and color Doppler examination with attention to the region of the thyroid. FINDINGS: SIZE: Measurements of the thyroid lobes and nodules are given in sagittal, anteroposterior and transverse dimensions respectively. Right Thyroid Lobe: 5.8 x 1.8 x 2.4 cm, volume 13.1 mL. Parenchyma: The gland echotexture is heterogeneous. Thyroid vascularity is increased. Left Thyroid Lobe: 5.8 x 2.1 x 2.7 cm, volume 17.2 mL. Parenchyma: The gland echotexture is heterogeneous. Thyroid vascularity is increased. Isthmus: 0.7 cm in maximum AP dimension. Estimated total number of nodules greater than or equal to 1 cm: 0. [employer] Press Operator nodules are described as follows: 1. Location: Right inferior. Size: 0.7 x 0.5 x 0.5 cm, volume 0.1 mL. Nodule characteristics: Composition: Mixed cystic and solid (1). Echogenicity: Hypoechoic (2). Shape: Not taller than wide (0). Margins: Smooth (0). Echogenic Foci: Comet-tail artifacts (0). ACR TI-RADS total points: 3 ACR TI-RADS category: 3 2. Location: Left mid. Size: 0.9 x 0.5 x 0.6 cm, volume 0.2 mL. Nodule characteristics: Composition: Solid/almost completely solid (2). Echogenicity: Isoechoic (1). Shape: Not taller than wide (0). Margins: Ill-defined (0). Echogenic Foci: None (0). ACR TI-RADS total points: 3 ACR TI-RADS category: 3 3. Location: Left mid. Size: 1.2 x 0.7 x 1.0 cm, volume 0.4 mL. Nodule characteristics: Composition: Mixed cystic and solid (1). Echogenicity: Isoechoic (1). Shape: Not taller than wide (0). Margins: Ill-defined (0). Echogenic Foci: None (0). ACR TI-RADS total points: 2 ACR TI-RADS category: 2 NODES: No lymphadenopathy is seen in the tissue surrounding the thyroid gland. US/US thyroid IMPRESSION: Subcentimeter TR 3 thyroid nodules and a 1.2 cm TR 2 thyroid nodule which do not meet criteria for follow-up. Heterogeneous hypervascular thyroid which can be seen in the setting of thyroiditis. [facility] Medical History (Updated 12/01/24 @ 13:39 by Teresa Cristina MD) Osteopenia Hypothyroidism Vitamin D deficiency Aromatase inhibitor use Toxic multinodul goiter Surgical History History of thyroid surgery Hx of rhinoplasty Hx of appendectomy Family History Mother Heart problem High cholesterol Arthritis History of hypertension Father Arthritis High cholesterol History of hypertension Social History Household Members: Family Household Members Other:: parents, brother Alcohol intake: current Alcohol intake frequency: does not drink Tobacco use type: Cigarette e-Cigarette/Vaping Use: Currently Using Physical Exam Vital Signs: Last Vital Signs Pulse 98 06/14/25 14:15 BP 90/54 L 06/14/25 14:15 Pulse Ox 99 06/14/25 14:15 Oxygen Delivery Method Room Air 06/14/25 14:15 BMI result Body Mass Index 24.7 Assessment & Plan Assessment & Plan (1) Aromatase inhibitor use: Code(s): Z79.811 - 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 Sees Dr. Macrina Best at [facility] and Dr Addison Bradford for her oncology care. Was started on letrozole 2.5 mg daily in February 2024, with plan for 5 years of therapy. No history of fractures, has not had a bone density scan. I discussed with the patient that Aromatase inhibitors are associated with bone loss and fracture and women who will be initiating aromatase inhibitors require fracture risk assessment. High-risk factors are history of cigarette smoking, history of hyperthyroidism,. She vapes now though and has quit cigarette smoking. Otherwise no other risk factors. She is taking adequate amounts of vitamin-D 2000 units daily, also on a good amount of calcium intake daily. DEXA scan 11/10/2024 showed T-score of-1.6 and Z-score of -1.4 of the lumbar spine, T-score of-0.7 at the left total hip and T-score of-1.1 at the left femoral neck. Lumbar spine and femoral neck consistent with osteopenia. While patient is young so we have to go by Z scores, she is meeting criteria for treatment based on the fact that her T-score is less than -1.5, she has a history of smoking cigarettes, and parent has a history of fragility fracture. 10/30/2024 CTX elevated at 1019. Normal calcium, vitamin-D of 50.8, normal kidney function, Labs from November 2024 showed Secondary workup for osteoporosis unremarkable with normal 24 hour urine calcium levels, normal SPEP. Normal vitamin-D and calcium and kidney function. I discussed with the patient that given high bone resorption and plan to be on letrozole up until 2028, we started Fosamax in December 2024. Plan would be to continue on Fosamax up until she stays on the letrozole. Six months since therapy, her CTX still remains elevated unfortunately. However no falls or fractures. At this point we will continue the medication and continue to monitor her We will have her repeat bone resorption markers including be BSAP and CTX in 1 year to see if she has any improvement. Next bone density would be due November 2026. Plan: -continue Fosamax 70 mg weekly -do blood work in 1 year prior to follow up -next bone density would be due November 2026 -continue vitamin-D 2000 units daily -maintain 0255-6293 mg of calcium intake through diet/supplement daily -weight-bearing exercise advised (2) Osteopenia: Code(s): M85.80 - Other specified disorders of bone density and structure, unspecified site Category: Medical Qualifiers: Osteopenia location: multiple sites Qualified Code(s): M85.89 - Other specified disorders of bone density and structure, multiple sites Plan: See above (3) Hypothyroidism: Code(s): E03.9 - Hypothyroidism, unspecified Category: Medical Qualifiers: Hypothyroidism type: postoperative Qualified Code(s): E89.0 - Postprocedural hypothyroidism Plan: 44-year-old female with past medical history significant for toxic multinodular goiter status post total thyroidectomy 09/02/[address] Vince Rosario at [facility], now coming in for postsurgical hypothyroidism. Labs from June 2025 showed normal TSH and free T4. She continues on levothyroxine 75 mcg daily. 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 of aromatase inhibitors Vitamin D 25-OH (D2 and D3) 05/16/26 E89.0 - Postprocedural hypothyroidism, M85.89 - Other specified disorders of bone density and structure, multiple sites, Z79.811 - retirement (current) use of aromatase inhibitors Thyroid Stimulating Hormone 05/16/26 E89.0 - Postprocedural hypothyroidism, M85.89 - Other specified disorders of bone density and structure, multiple sites, Z79.811 - retirement (current) use of aromatase inhibitors Free T4 (Free Thyroxine) 05/16/26 E89.0 - Postprocedural hypothyroidism, M85.89 - Other specified disorders of bone density and structure, multiple sites, Z79.811 - food general 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 (current) use of aromatase inhibitors Collagen Type I C-Telopeptide 05/16/26 E89.0 - Postprocedural hypothyroidism, M85.89 - Other specified disorders of bone density and structure, multiple sites, Z79.811 - food general manager (current) use of aromatase inhibitors Albumin Level 05/16/26 E89.0 - Postprocedural hypothyroidism, M85.89 - Other specified disorders of bone density and structure, multiple sites, Z79.811 - food general manager (current) use of aromatase inhibitors Medications: Refilled 2 levothyroxine 75 mcg PO DAILY 90 tabs 4RF alendronate (Fosamax) 70 mg PO QWEEK 12 tabs 4RF Coding Level of Care Code Est Pt Level 3 (92260) Diagnoses Aromatase inhibitor use Z79.811 Osteopenia of multiple sites M85.89 Osteopenia location: multiple sites Postoperative hypothyroidism E89.0 Hypothyroidism type: postoperative
--- OUTSIDE RECORDS SUMMARY | 2025-06-14 14:43 | XMS_ITS | Encounter Summary ---
Author Organization [facility] Address [address] [id number] Care Team Providers Care Product Safety Associate Name Role Phone Valeria Au NP Primary Care Provider [phone] Encounter Details Date Type Department Care Team Description 10/08/[address] [facility] Oncology Services [address] [place] [id number] Todd Chang MSW Social History Tobacco Use [...] on filedocumented in this encounter Care Teams Product Safety Associate Relationship Specialty Start Date End Date Valeria Au NP [address] [place] [address] PCP - General Nurse Practitioner 07/31/23 documented as of this encounter
--- OUTSIDE RECORDS SUMMARY | 2025-06-14 14:44 | XMS_ITS | Clinical Summary ---
Author Organization [facility] Address [address] [place] [address] Care Team Providers Care Bindery Production Manager Name Role Phone Unavailable Primary Care Provider Unavailabl e Encounters Date Type Department Care Team Description 05/25/2025 Population Health Risk Score [facility] Care [facility] (C3) Department [address] [facility] [address] [place] [address] Provider, Population Health Generic from [...]
--- OUTSIDE RECORDS SUMMARY | 2025-06-14 14:44 | XMS_ITS | Clinical Summary ---
Author Organization [facility] Address [address] [place] [address] Care Team Providers Care Dental Chairside Assistant Name Role Phone Adry Mancera Primary Care Provider + [phone] Source Comments PLEASE NOTE, if this patient [...] once daily 08/27/20 20 Active multivit with calcium,iron,m in (MULTIPLE VITAMIN, WOMENS ORAL) 0 Refills, Maintenance, 06/19/21 10:31:00 EDT, Partial fill upon patient request if the prescription is for a schedule II opioid drug. 06/19/20 21 Active letrozole (FEMARA) 2.5 mg tablet Take 1 Tablet by mouth once daily 06/25/20 24 Active levothyroxine 75 mcg tablet Take 75 mcg by mouth once daily. 02/28/20 25 Active ferrous sulfate 325 mg (65 mg iron) tabletIndicati ons:Iron deficiency anemia due to chronic blood loss TAKE 1 TABLET BY MOUTH EVERY OTHER DAY 45 Tablet 1 06/10/20 25 Active omeprazole (PRILOSEC) [address] capsuleIndicat ions:Gastroeso phageal reflux disease TAKE 1 CAPSULE BY MOUTH EVERY DAY IN THE MORNING BEFORE BREAKFAST 90 Capsule 1 06/10/20 25 Active omeprazole (PRILOSEC) [address] capsuleIndicat ions:Gastroeso phageal reflux disease TAKE 1 CAPSULE BY MOUTH EVERY DAY IN THE MORNING BEFORE BREAKFAST 90 Capsule 1 03/31/20 24 025 Discontinued ferrous sulfate 325 mg (65 mg iron) tabletIndicati ons:Iron deficiency anemia due to chronic blood loss TAKE 1 TABLET BY MOUTH EVERY OTHER DAY 45 Tablet 1 02/27/20 25 025 Discontinued Active Problems Problem Noted Date Diagnosed Date Financial difficulties 06/10/2024 Osteopenia of multiple sites 02/10/2024 Overview (02/10/2024): 01/31/24 DEXA Invasive ductal carcinoma of left breast ([facility]) 01/09/2024 Overview (09/07/2024): Also following [facility] Breast surgery [id number] 06/2024 [facility] Oncology [id number]: Pt presented in 07/2023 with a left-sided [...] arm lymphedema. I referred her to the [facility]. Malignant neoplasm of upper- outer quadrant of left breast in female, estrogen receptor positive ([facility]) 08/24/2023 Mixed hyperlipidemia 01/25/2023 Chronic midline low [...] 25.0-29.9) 11/17/2015 Hypothyroidism 02/03/2015 Overview (09/16/2024): Following [facility] every 3 months. 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 >> Endocrine [facility] 10/03/16- Levothyroxine Dose changed to 25mcg qd in mid 06/2016 and she feels well. Cont same. F/u labs. Plan repeat thyroid USG in 06/2017 and f/u after [facility] Thyroid US (06/05/2017, [facility]): Enlargement of the thyroid gland, with further [...] swelling 06/17/2017 05/05/2019 Overview (07/17/2017): USG at [facility] 06/10/17 show IMPRESSION: No solid or cystic mass definable in Rt breast area of concern.BI-RADS Category 1 PF, negative, clinical management of palpable abnormality recommended. No visible axillary lymph nodes and areas of indicated concern without concerning features. Immunization due 03/17/2015 05/05/2019 Encounters Date Type Department Care Team Description 05/17/2025 Results Follow-Up [address] [id number] Adry Mancera FNP 05/11/2025 3:00 PM EDT Office Visit [address] [phone] Adry Mancera FNP from Last 3 Months Immunizations Immunization Administration Dates Next Due Flu, Cell Culture based, Mul ti Dose, 6m+, Flucelvax 07/14/2020 Flu, Cell Culture based, Pre servative Free, 6m+, Flucelvax 08/07/2022,08/19/2017 Flu, Preservative Free 07/24/2021,2018,07/04/2018,2015,11/13/2015 Hep B, Adult/Adol (TUNGUKT-[id number]-VLBKG/RECOMBIVAX-ADULT) 12/20/2015,03/17/2015,02/03/2015 Influenza, Whole 08/20/2016 MMR (MMR II/Priorix) [...] phone, visiting friends or family, going to faith or club meetings) 1 06/10/2024 Financial Resource [...] HPV Screening 1980 Pap + HPV 1980 [id number] ( season) 2024 11/10/2021, 01/09/2021, 12/24/2020 CT [...] included. FERRITIN 104 16 - 232 ng/mL [employer] IRON, TOTAL 122 40 - 190 mcg/dL [employer] IRON BINDING CAPACITY 361 250 - 450 mcg/dL (calc) [employer] % SATURATION 34 16 - 45 % (calc) [employer] 05/11/2025 4:14 PM EDT 05/11/2025 4:14 PM EDT Narrative [facility] - 05/12/2025 7:43 AM EDT FASTING:NO us Bre Hancock PA-C LAB - BLOOD DRAW Final Resul t [facility] [address] [place] [phone], [employer] [address] [place] [phone] * TSH W/RFLX FREE T4 Routine (05/11/2025 4:14 PM EDT) TSH W/REFLEX TO FT4 0.93 0.40 - 4.50 mIU/L [employer] Comment: Reference Range > or = 20 Years 0.40-4.50 Ranges First trimester 0.26-2.66 Second trimester 0.55-2.73 Third trimester 0.43-2.91 05/11/2025 4:14 PM EDT 05/11/2025 4:14 PM EDT Narrative [facility] - 05/12/2025 7:43 AM EDT FASTING:NO us Bre Hancock PA-C LAB - BLOOD DRAW Edited Resu lt - Final [facility] [address] [address], [facility] [address] [place] [address] * (ABNORMAL) BLOOD COUNT COMPLETE AUTOMATED Routine (05/11/2025 4:14 PM EDT) WHITE BLOOD CELL COUNT 5.5 3.8 - 10.8 Thousand/ uL [employer] RED BLOOD CELL COUNT 3.79(L) 3.80 - 5.10 Million/u L [employer] HEMOGLOBIN 12.4 11.7 - 15.5 g/dL [employer] HEMATOCRIT 38.0 35.0 - 45.0 % [employer] MCV 100.3(H) 80.0 - 100.0 fL [employer] MCH 32.7 27.0 - 33.0 pg [employer] MCHC 32.6 32.0 - 36.0 g/dL [employer] Comment: For adults, a slight decrease in the calculated MCHC value (in the range of 30 to 32 g/dL) is most likely not clinically significant; however, it should be interpreted with caution in correlation with other red cell parameters and the patient's clinical condition. RDW 11.7 11.0 - 15.0 % [employer] PLATELET COUNT 261 140 - 400 Thousand/ uL [employer] MPV 10.1 7.5 - 12.5 fL [employer] 05/11/2025 4:14 PM EDT 05/11/2025 4:14 PM EDT [facility] - 05/12/2025 7:43 AM EDT FASTING:NO us Bre Hancock PA-C LAB - BLOOD DRAW Edited Resu lt - Final Performing Organization Address City/[facility]/ZIP Co de Phone Number [facility] [address] [address], [facility] [address] [place] [address] * COMPREHENSIVE METABOLIC PANEL Routine (05/11/2025 4:14 PM EDT) Only the most recent of2 resultswithin the time period is included. GLUCOSE 92 65 - 139 mg/dL [facility] Comment: Non-fasting reference interval UREA NITROGEN (BUN) 19 7 - 25 mg/dL [facility] CREATININE (blood) 0.85 0.50 - 0.99 mg/dL [facility] EGFR 86 > OR = 60 mL/min/1. 73m2 [facility] BUN/CREATININE RATIO SEE NOTE: [facility] Comment: Not Reported: BUN and Creatinine are within reference range. SODIUM 139 135 - 146 mmol/L [facility] POTASSIUM 4.6 3.5 - 5.3 mmol/L [facility] CHLORIDE 103 98 - 110 mmol/L [facility] CARBON DIOXIDE 28 20 - 32 mmol/L [facility] CALCIUM 9.6 8.6 - 10.2 mg/dL [facility] PROTEIN, TOTAL 6.6 6.1 - 8.1 g/dL [facility] ALBUMIN 4.2 3.6 - 5.1 g/dL [facility] GLOBULIN 2.4 1.9 - 3.7 g/dL (calc) [facility] ALBUMIN/GLOBULI N RATIO 1.8 1.0 - 2.5 (calc) [facility] BILIRUBIN, TOTAL 0.5 0.2 - 1.2 mg/dL [facility] ALKALINE PHOSPHATASE 57 31 - 125 U/L [facility] AST 17 10 - 35 U/L [facility] ALT 16 6 - 29 U/L [facility] 05/11/2025 4:14 PM EDT 05/11/2025 4:14 PM EDT Narrative [employer] [facility] - 05/12/2025 7:43 AM EDT FASTING:NO us Bre Hancock PA-C LAB - BLOOD DRAW Final Resul t Performing Organization Address City/[facility]/ZIP Co de Phone Number [employer] [facility] [address] [address], [facility] [address] [place] [address] * BLOOD COUNT COMPLETE AUTO&AUTO DIFRNTL WBC Routine (05/11/2025 4:12 PM EDT) WHITE BLOOD CELL COUNT 5.5 3.8 - 10.8 Thousand/ uL [facility] RED BLOOD CELL COUNT 3.87 3.80 - 5.10 Million/u L [facility] HEMOGLOBIN 12.5 11.7 - 15.5 g/dL [facility] HEMATOCRIT 38.7 35.0 - 45.0 % [employer] MCV 100.0 80.0 - 100.0 fL [employer] MCH 32.3 27.0 - 33.0 pg [facility] MCHC 32.3 32.0 - 36.0 g/dL [facility] Comment: For adults, a slight decrease in the calculated MCHC value (in the range of 30 to 32 g/dL) is most likely not clinically significant; however, it should be interpreted with caution in correlation with other red cell parameters and the patient's clinical condition. RDW 11.8 11.0 - 15.0 % [facility] PLATELET COUNT 266 140 - 400 Thousand/ uL [facility] MPV 10.1 7.5 - 12.5 fL [facility] ABSOLUTE NEUTROPHILS 3,240 1,500 - 7,800 cells/uL [facility] ABSOLUTE LYMPHOCYTES 1,711 850 - 3,900 cells/uL [facility] ABSOLUTE MONOCYTES 292 200 - 950 cells/uL [facility] ABSOLUTE EOSINOPHILS 231 15 - 500 cells/uL [facility] ABSOLUTE BASOPHILS 28 0 - 200 cells/uL [facility] NEUTROPHILS PCT 58.9 % QUES T [employer] [facility] LYMPHOCYTES 31.1 % [facility] [employer] [facility] MONOCYTES 5.3 % [facility] [employer] [facility] EOSINOPHILS 4.2 % [facility] [employer] [facility] BASOPHILS 0.5 % [facility] [employer] [facility] Blood Blood / Unknown 05/11/2025 4 :12 PM EDT 05/11/2025 4:13 PM EDT Narrative [employer] [facility] - 05/12/2025 11:47 AM EDT FASTING:NO Adry Mancera [facility] LAB - BLOOD DRAW Edited Resu lt - Final Performing Organization Address [facility] Co de Phone Number [facility] [address] [address], [facility] [address] [address] * HEMOGLOBIN GLYCOSYLATED A1C Routine (05/11/2025 4:12 PM EDT) [facility] HEMOGLOBIN A1C 4.9 <5.7 % [facility] Comment: For the purpose of screening for the presence of diabetes: <5.7% Consistent with the absence of diabetes 5.7-6.4% Consistent with increased risk for diabetes (prediabetes) > or =6.5% Consistent with diabetes This assay result is consistent with a decreased risk of diabetes. Currently, no consensus exists regarding use of hemoglobin A1c for diagnosis of diabetes in children. According to [place] Diabetes Association (ADA) guidelines, hemoglobin A1c <7.0% represents optimal control in non- diabetic patients. Different metrics may apply to specific patient populations. Standards of Medical Care in Diabetes(ADA). Blood Blood / Unknown 05/11/2025 4 :12 PM EDT 05/11/2025 4:13 PM EDT Narrative [facility] - 05/12/2025 11:47 AM EDT FASTING:NO Adry Mancera [facility] LAB - BLOOD DRAW Final Resul t Performing Organization Address [facility] Co de Phone Number [facility] [address] [address], [facility] [address] [address] * (ABNORMAL) LIPID PANEL Routine (05/11/2025 4:12 PM EDT) Pathologist [facility] CHOLESTEROL, TOTAL 169 <200 mg/dL [facility] HDL CHOLESTEROL 57 > OR = 50 mg/dL [facility] TRIGLYCERIDES 176(H) <150 mg/dL [facility] LDL-CHOLESTEROL 85 99 mg/dL (calc) [facility] Comment: Reference range: <100 Desirable range <100 mg/dL for primary prevention; <70 mg/dL for patients with CHD or diabetic patients with > or = 2 CHD risk factors. LDL-C is now calculated using the Jazmin calculation, which is a validated novel method providing better accuracy than the Friedewald equation in the estimation of LDL-C. Eduard BARBA et al. CARMITA. 2013;310(19): 2711-0415 (http://education.[employer]/faq/RSW583) CHOL/HDLC RATIO 3.0 <5.0 (calc) [employer] NON-HDL CHOLESTEROL 112 <130 mg/dL (calc) [employer] Comment: For patients with diabetes plus 1 major ASCVD risk factor, treating to a non-HDL-C goal of <100 mg/dL (LDL-C of <70 mg/dL) is considered a therapeutic option. Blood Blood / Unknown 05/11/2025 4 :12 PM EDT 05/11/2025 4:13 PM EDT Narrative [facility] - 05/12/2025 11:47 AM EDT FASTING:NO Adry Mancera [employer] LAB - BLOOD DRAW Final Resul t [facility] [address] [place] [id number], [employer] [address] [place] [phone] * HISTORIC MAMMOGRAM (10/19/2024 3:00 AM EST) 10/19/2024 3:00 AM EST Valeria Campbell FIRE CLAIMS ADJUSTER IMG MAMMO Final Res ult * THIN PREP PAP W/RFLX HPV RNA E6/E7 (Q) (01/30/2022 2:31 PM EDT) CLINICAL INFORMATION See Note [employer] Comment:None given LMP See Note [employer] Comment:[id number] PREV. PAP [employer] PREV. BX See Note [employer] Comment:NONE GIVEN SOURCE See Note [employer] Comment:Cervix, Endocervix STATEMENT OF ADEQUACY See Note [employer] Comment: Satisfactory for evaluation. Endocervical/transformation zone component absent. INTERPRETATION/RESU LT See Note [employer] Comment:Negative for intraep ithelial lesion or malignancy. ROBOTIC WELDER See Note [facility] [employer] Comment: CURT, CT(ASCP) CT screening location: [address] [address] COMMENT [employer] CYTOLOGY C[employer]ix uteri structure / Unknown 01/30/2022 2:31 PM EDT 01/31/2022 5:54 AM EDT Narrative [employer] [facility] - 02/01/2022 2:24 PM EDT EXPLANATORY [...] information. us Bre Hancock PA-C LAB - PATHOLOGY AND CYTOLOGY AMBULATORY Final Result [facility] [address] [place] [id number], [facility] [place] [employer] [address] [place] [address],[place] [address] * (ABNORMAL) HEPATITIS A,B,C PANEL (09/19/2020 11:49 AM EST) HEPATITIS B SURFACE ANTIBODY POSITIVE(A) NEGATIVE [facility] HEPATITIS B SURFACE ANTIGEN NEGATIVE NEGATIVE [facility] Comment: Over the counter supplements containing high doses of biotin may interfere with this assay. If interference is suspected, patients shoud be retested after refraining from biotin supplements for 72 hours. HEPATITIS C VIRUS DIAGNOSTIC NEGATIVE NEGATIVE [facility] HEPATITIS B CORE ANTIBODY NEGATIVE NEGATIVE [facility] HEPATITIS A ANTIBODY TOTAL POSITIVE(A) NEGATIVE [facility] Comment: Over the counter supplements containing high doses of biotin may interfere with this assay. If interference is suspected, patients shoud be retested after refraining from biotin supplements for 72 hours. Blood Blood / Unknown 09/19/2020 1 1:49 AM EST 09/19/2020 5:00 PM EST [facility] - 09/19/2020 7:09 PM EST [employer], a member of [address] [address] Early Childhood Education Coordinator - Tenisha Negrete MD [place] [id number] ORD# [id number] [facility] LAB - BLOOD DRAW Edited Res ult - Final [address] [address], [place] [phone] * HIV-1 & HIV-2 ANTIBODIES (09/19/2020 11:49 AM EST) [facility] HIV 1 AND 2 ANTIBODY SCREEN NEGATIVE NEGATIVE [facility] Comment: This assay is a [...] 1:49 AM EST 09/19/2020 5:00 PM EST [email or web address] - 09/19/2020 7:38 PM EST [employer], a member of [address] [address] Early Childhood Education Coordinator - Tenisha Negrete MD [place] [id number] ORD# [id number] [facility] LAB - BLOOD DRAW Edited Res ult - Final Performing Organization Address City/[facility]/ZIP Co de Phone Number [address] [address], [place] [phone] from Last 3 Months or Most Recently Relevant to Health Maintenance Insurance [id number] Care Teams Dental Chairside Assistant Relationship Specialty Start Date End Date Adry Mancera FNP [address] [place] [address] PCP - General Family Medicine, SCREEN REPAIRER CRUSHER 04/28/25
--- OUTSIDE RECORDS SUMMARY | 2025-06-14 14:44 | XMS_ITS ---
Author Organization [facility] Address [address] [place] [address] Phone Care Team Providers Care Converter Supervisor Name Role Phone Arleen Campbell Marie 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 Treatments may have been administered in another system. Resolved Problems Problem Noted Date Diagnosed Date Resolved Date Class 2 obesity due to exces s calories with body mass index (BMI) of 35.0 to 35.9 in adult 08/08/2024 04/14/2025
== END 2025-06-14 14:39 | disposition home or self-care (01) ==
LOC: HO.ENCR 14:14
PROVIDERS: PCP Internal Medicine; Visit Provider Student in an Organized Health Care Education/Training Program
DX: Z79.811 Long term (current) use of aromatase inhibitors (principal); M85.89 Other specified disorders of bone density and structure, multiple sites; E89.0 Postprocedural hypothyroidism
CPT/HCPCS: 99213

== ENCOUNTER → 2025-06-14 14:13 | Outpatient (BNVA) | payer MEDICAID, SELFPAY | PROVIDERS: PCP Internal Medicine; Visit Provider Student in an Organized Health Care Education/Training Program | DX: E89.0 Postprocedural hypothyroidism (principal); Z79.811 Long term (current) use of aromatase inhibitors; M85.89 Other specified disorders of bone density and structure, multiple sites; Z85.3 Personal history of malignant neoplasm of breast | CPT/HCPCS: 99212 ==